=== PATIENT | female | born 1950 | race Caucasian/White ===

== ENCOUNTER 2018-01-15 10:48 | Observation (INO) | payer MEDICARE, SELFPAY ==
[2018-01-15] VITALS (16 sets, daily range): BP systolic 119–185; BP diastolic 76–109; PULSE 62–105; RESP 14–20; TEMP 36.8–36.9; O2SAT 96–100; BMI 29.0; BMI 28.5; BMI 28.6
--- NOTE | 2018-01-15 10:56 | NURSING ---
NO OLD EKGS
--- NOTE | 2018-01-15 11:05 | EKG12_ITS ---
Test Reason : CP Blood Pressure : / mmHG Vent. Rate : 071 BPM Atrial Rate : 071 BPM P-R Int : 150 ms QRS Dur : 078 ms QT Int : 388 ms P-R-T Axes : 044 -13 054 degrees QTc Int : 421 ms Normal sinus rhythm Normal ECG Confirmed by FRANKIE CARDOZO, GAMA ([id number]), purchasing expeditor ROSMERY SHAHID ([id number]) on 01/18/2018 1:56:12 PM Referred By: PATTI Confirmed By:GAMA DAVID MD
[2018-01-15 11:12] LABS: Absolute Lymphocyte Count 1.35 X10^3/ul (0.83-4.51); Basophil# 0.02 X10^3/uL; Basophil% 0.2 % (0-1); Eosinophil# 0.05 X10^3/uL; Eosinophils% 0.5 % (0-5); Hematocrit 43.6 % (37-47); Hemoglobin 14.4 g/dl (12.0-15.0); Lymphocyte # 1.35 X10^3/ul (4.0); Lymphocyte % 13.7 % (19-41); Mean Corpuscular Hgb 28.2 pg (27.0-32.0); Mean Corpuscular Volume 85.3 fL (81-99); Mean Platelet Vol. 10.4 fl (6.2-12.0); Monocyte# 0.48 X10^3/uL; Monocyte% 4.9 % (0-10); Neutrophil # 7.96 X10^3/uL (2.7-7.7); Neutrophil % 80.5 % (47-70); Platelet Count 306 K/mm3 (150-450); RBC Distribution Width CV 14.5 % (11.6-14.6); RBC Distribution Width SD 44.9 fl (35.1-43.9); Red Blood Count 5.11 M/mm3 (4.2-5.4); White Blood Count 9.9 K/mm3 (4.4-11.0)
[2018-01-15 11:13] LABS: POSITIVE COUNT NO; POSITIVE DIFFERENTIAL NO; POSITIVE MORPHOLOGY NO
--- NOTE | 2018-01-15 11:14 | NURSING ---
CHEMISTRIES AND COAGS HEMOLIZED. LAB TO REPRTINT LABELS
--- NOTE | 2018-01-15 11:30 | ED.RN ---
PT NAUSEATED. UNABLE TO TAKE PO MEDICATIONJS AT PRESENT. WAITING FOR ZOFRAN
[2018-01-15] MEDS: Ondansetron 4 MG/2 ML Vial IV ×2 (11:32→21:04)
[2018-01-15 11:46] LABS: Prothrombin Time (Protime)PT. 12.9 SECONDS (11.7-14.9)
[2018-01-15 11:53] LABS: Anion Gap 7 (5-15); BUN 12 mg/dL (7-18); BUN/Creat Ratio 12.7 RATIO (10-20); Calcium,Total 9.2 mg/dL (8.5-10.1); Chloride 103 mmol/L (98-107); Creatinine, Serum 0.95 mg/dL (0.55-1.02); EST Glomerular Filtration Rate 62 mL/min (>60); Est Glom Filt Rate - Afr Amer 75 mL/min (>60); Estimated Creatinine Clearance 48.26 ml/min; Glucose 101 mg/dL (74-106); Potassium 4.1 mmol/L (3.5-5.1); Sodium Level 139 mmol/L (136-145)
[2018-01-15] MEDS: Aspirin 81 MG TAB.CHEW 324 MG PO (11:54)
--- NOTE | 2018-01-15 11:54 | EKG12_ITS ---
Test Reason : REPEAT Blood Pressure : / mmHG Vent. Rate : 061 BPM Atrial Rate : 061 BPM P-R Int : 158 ms QRS Dur : 074 ms QT Int : 436 ms P-R-T Axes : 032 -06 054 degrees QTc Int : 438 ms Normal sinus rhythm Normal ECG Confirmed by FRANKIE CARDOZO, GAMA ([id number]), proposal editor ROSMERY SHAHID ([id number]) on 01/18/2018 1:56:27 PM Referred By: JUAN PABLO Confirmed By:GAMA DAVID MD
--- NOTE | 2018-01-15 11:54 | RAD_ITS ---
STUDY: X-RAY CHEST REASON FOR EXAM: Female, 67 years old. Chest pain TECHNIQUE: Portable frontal COMPARISON: None. FINDINGS: There is no focal consolidation. Normal size heart. Normal mediastinum and maxime. Normal visualized pulmonary arteries. There is atherosclerotic calcification of the aortic arch with tortuosity. There are diffuse degenerative changes of the visualized thoracic spine. Normal visualized ribs, clavicles, and shoulders. There is no demonstrated abnormality of the visualized soft tissue structures of the upper abdomen. RAD/Chest 1 View (Portable) IMPRESSION: No acute cardiopulmonary process. Electronically Signed: Ariella Underwood MD at 12:33 EDT Tel , Service support ,
--- NOTE | 2018-01-15 12:48 | ED.DCSUM_ITS ---
- ER Visit Summary Date of Service: 01/15/18 Chief Complaint: Chest pain History of Present Illness: The patient is a 67 F who presents with chest pain. It began this morning. She had it when she got up. She describes it as a constant substernal chest tightness which is moderate in severity and nonradiating. She also had nausea with dry heaving and felt short of breath this morning. About a week and a half ago she had one day of an illness with nausea and vomiting but it has resolved. She also fell 2 days ago. This was mechanical. She was trying to pull something and fell. She does have some bruising on her posterior right chest. She has no history of prior similar chest pain. There is a family history of heart disease but not until advanced age. She is not a smoker. Physical Examination: Initial blood pressure 178/109 vitals otherwise normal Moist mucous membranes Heart regular rate and rhythm Lungs are clear Patient has some right posterior chest contusion and ecchymosis with tenderness she does not have anterior chest tenderness Abdomen soft nontender nondistended Extremities nontender with easily palpable symmetric radial pulses Alert Test Results: EKG shows sinus rhythm at a rate of 71. Repeat EKG shows sinus rhythm at a rate of 61. There are no acute ischemic changes. Chest x-ray shows no acute process. CBC BMP troponin and INR all normal. Emergency Department Course and Treatment: Patient was given aspirin. She was given sublingual nitroglycerin. She did have some mild improvement of symptoms with nitroglycerin. However after the third dose she became pale and diaphoretic. Repeat EKG was obtained at this time which did not show acute ischemic changes. She was given morphine with further relief of symptoms. Her LEONELA risk score is 2 and heart score is 3. I do feel she should be admitted for serial EKGs and enzymes and likely stress testing. Treatment Plan: [] Disposition: Admit Impression: Chest pain This note was generated with [employer] dictation software. It may contain incorrect words, spelling, and punctuation that were not noted in review of the chart prior to signing ED Disposition - Plan for ED Patient: Chief Complaint: Chest Pain Referrals: Denzel Greco DO [Primary Care Provider] -
--- NOTE | 2018-01-15 13:14 | PCM.HP.STD ---
Problem List (1) Chest pain Status: Acute (2) Multiple sclerosis Status: Chronic (3) Hypothyroidism Status: Chronic History of Present Illness Date of Admission: 01/15/18 Chief Complaint: Chest pain. The patient is a 67 year old F with past medical history as mentioned above presented to the emergency department because of chest pain. Her symptoms started this morning around 6 AM after she woke up from sleep with retrosternal chest pain, described as chest tightness, 6 out of 10 in severity, not radiating, associated with nausea, was constant, without aggravating or relieving factors. Her pain was continuous until she came to the emergency room and at this time, his pain is down to 4 out of 10 in severity. 2 days ago, she had mechanical fall and she had some bruising on the right posterior chest underneath her right scapula. In the emergency department, her vital signs were stable. Her routine blood work is unremarkable. Troponin is negative. EKG revealed normal sinus rhythm without evidence of acute ischemic changes. Chest x-ray showed no acute findings. Pro time and INR were normal. She is being admitted for chest pain for evaluation. Past Medical History Past Medical History (Chronic Problems): Chronic Problems Multiple sclerosis (Chronic) Hypothyroidism (Chronic) Allergies No Known Allergies Allergy (Verified 01/15/18 10:53) Home Medications: Ambulatory Orders Medication Instructions Recorded Aspirin E.C. 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 Denies: Heaviness, Light Headedness, Orthopnea, Paroxysmal Noc. Dyspnea, Syncope Respiratory: Denies: Cough, Hemoptysis, Pleuritic Pain, Shortness of Breath, Sputum production, Wheezing Gastrointestinal: Reports: Nausea. Denies: Abdominal Pain, Constipation, Diarrhea, Vomiting Genitourinary: Denies: Dysuria, Frequency, Hematuria Musculoskeletal: Denies: Arm Pain, Back Pain, Foot Pain Skin: Denies: Dryness, Rash Neurological: Denies: Balance problems, Double vision, Change in Speech, Slurred speech, Confusion, Headaches, Incoordination, Numbness Psychiatric: Denies: Anxiety, Depression Endocrine: Denies: Change in Body Habitus, Polydipsia VTE Information - Inpt Only VTE Present on Admission: No VTE Mechan Device Prophylaxis: None VTE Pharm Prophylaxis ordered?: Yes Patient Problems: Active and Suspected Problems Chest pain (Acute) - Physical Exam General: Alert, Oriented x3, Cooperative, No apparent distress HEENT: Atraumatic, PERRLA, EOMI Oral: Moist Mucosa, No Gingival or Mucosal Lesions/ Ulcerations Neck: Supple, No JVD, Negative Carotid Bruits, Trachea Midline, Thyroid Normal Size and Texture Lungs: Clear to auscultation, Normal air movement, No rhonchi, No wheeze, No rales Cardiovascular: Regular rate, Regular Rhythm, Normal S1, Normal S2, No murmurs Abdomen: Bowel Sounds Present, Soft, Non Tender, Non-Distended, No Hepato-splenomegaly Extremities: No clubbing, No cyanosis, No edema Skin: No rashes, No breakdown, - - She has bruise on the right posterior chest just under the right scapula. Lymphatic: No Cervical, Supraclavicular, or Inguinal Adenopathy Neurological: Cranial nerves II-XII grossly intact, Motor Exam 5/5 strength throughout Psych/Mental Status: Normal Affect, Appropriate, Alert and oriented to time, place, person, mood and affect Vital Signs Temp Pulse Resp BP Pulse Ox 98.5 F 70 16 150/80 H 100 01/15/18 10:49 01/15/18 12:00 01/15/18 12:00 01/15/18 12:00 01/15/18 12:00 Laboratory Tests 01/15/18 01/15/18 01/15/18 Range/Units 11:25 11:25 10:53 WBC (4.4-11.0) K/mm3 RBC (4.2-5.4) M/mm3 Hgb (12.0-15.0) g/dl Hct (37-47) % MCV (81-99) fL MCH (27.0-32.0) pg MCHC (32-36) g/gl RDW (11.6-14.6) % RDW Differential (35.1-43.9) fl Plt Count (150-450) K/mm3 MPV (6.2-12.0) fl Immature Gran % (Auto) (0.0-0.9) % Neut % (Auto) (47-70) % Lymph % (Auto) (19-41) % [place] % (Auto) (0-10) % Eos % (Auto) (0-5) % Baso % (Auto) (0-1) % Absolute Neuts (auto) (2.0-7.7) X10^3/uL Absolute Lymphs (auto) (0.83-4.51) X10^3/ul Total Counted PT 12.9 INR 1.0 Sodium 139 Cancelled Potassium 4.1 Cancelled Chloride 103 Cancelled Carbon Dioxide 29.0 Cancelled Anion Gap 7 Cancelled BUN 12 Cancelled Creatinine 0.95 Cancelled Estim Creat Clear Calc 48.26 Cancelled Est GFR (MDRD) Af Amer 75 Cancelled Est GFR (MDRD) Non-Af 62 Cancelled BUN/Creatinine Ratio 12.7 Cancelled Glucose 101 Cancelled Calcium 9.2 Cancelled Troponin I < 0.015 Cancelled 01/15/18 01/15/18 Range/Units 10:53 10:53 WBC 9.9 (4.4-11.0) K/mm3 RBC 5.11 (4.2-5.4) M/mm3 Hgb 14.4 (12.0-15.0) g/dl Hct 43.6 (37-47) % MCV 85.3 (81-99) fL MCH 28.2 (27.0-32.0) pg MCHC 33.0 (32-36) g/gl RDW 14.5 (11.6-14.6) % RDW Differential 44.9 H (35.1-43.9) fl Plt Count 306 (150-450) K/mm3 MPV 10.4 (6.2-12.0) fl Immature Gran % (Auto) 0.200 (0.0-0.9) % Neut % (Auto) 80.5 H (47-70) % Lymph % (Auto) 13.7 L (19-41) % [place] % (Auto) 4.9 (0-10) % Eos % (Auto) 0.5 (0-5) % Baso % (Auto) 0.2 (0-1) % Absolute Neuts (auto) 8.0 H (2.0-7.7) X10^3/uL Absolute Lymphs (auto) 1.35 (0.83-4.51) X10^3/ul Total Counted Not Reportable PT Cancelled INR Cancelled Sodium Potassium Chloride Carbon Dioxide Anion Gap BUN Creatinine Estim Creat Clear Calc Est GFR (MDRD) Af Amer Est GFR (MDRD) Non-Af BUN/Creatinine Ratio Glucose Calcium Troponin I Clinical Impression(s) from Imaging Studies Chest X-Ray 01/15/18 11:54 IMPRESSION: No acute cardiopulmonary process. Electronically Signed: Ariella Underwood MD at 12:33 EDT Tel , Service support , Assessment/Plan Active and Suspected Problems Chest pain (Acute) This is a 67 years old female patient presented to the emergency room because of chest pain and she is being admitted for evaluation. #1 chest pain: Her LEONELA score is 2 based on her age and using of aspirin in the last 7 days. No past history of CAD, hypertension, diabetes, hyperlipidemia or smoking. Initial EKG revealed no acute ischemic changes. Troponin is negative. Chest x-ray without acute findings. Plan: Admit to PCU for observation, cardiac monitoring, serial cardiac enzymes, repeat EKG tomorrow morning, continue aspirin, nuclear stress test tomorrow morning if cardiac enzymes are negative, IV morphine as needed for pain, Tylenol as needed. #2 hypothyroidism: Continue levothyroxine. #3 multiple sclerosis: She is only on tramadol as needed, continue. #4 DVT prophylaxis: Subcu Lovenox. This note was generated with mobicanvasation software. It may contain incorrect words, spelling, and punctuation that were not noted in checking the note before signing. Code Visit OBSV E&M: 00796 Initial observation care L3
--- NOTE | 2018-01-15 13:22 | HP.PCM_ITS ---
Problem List (1) Chest pain Status: Acute (2) Multiple sclerosis Status: Chronic (3) Hypothyroidism Status: Chronic History of Present Illness Date of Admission: 01/15/18 Chief Complaint: Chest pain. The patient is a 67 year old F with past medical history as mentioned above presented to the emergency department because of chest pain. Her symptoms started this morning around 6 AM after she woke up from sleep with retrosternal chest pain, described as chest tightness, 6 out of 10 in severity, not radiating , associated with nausea, was constant, without aggravating or relieving factors. Her pain was continuous until she came to the emergency room and at this time, his pain is down to 4 out of 10 in severity. 2 days ago, she had mechanical fall and she had some bruising on the right posterior chest underneath her right scapula. In the emergency department, her vital signs were stable. Her routine blood work is unremarkable. Troponin is negative. EKG revealed normal sinus rhythm without evidence of acute ischemic changes. Chest x-ray showed no acute findings. Pro time and INR were normal. She is being admitted for chest pain for evaluation. Past Medical History Past Medical History (Chronic Problems): Chronic Problems Multiple sclerosis (Chronic) Hypothyroidism (Chronic) Allergies No Known Allergies Allergy (Verified 01/15/18 10:53) Home Medications: Ambulatory Orders Medication Instructions Recorded Aspirin E.C. 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 Denies: Heaviness, Light Headedness, Orthopnea, Paroxysmal Noc. Dyspnea, Syncope Respiratory: Denies: Cough, Hemoptysis, Pleuritic Pain, Shortness of Breath, Sputum production, Wheezing Gastrointestinal: Reports: Nausea. Denies: Abdominal Pain, Constipation, Diarrhea, Vomiting Genitourinary: Denies: Dysuria, Frequency, Hematuria Musculoskeletal: Denies: Arm Pain, Back Pain, Foot Pain Skin: Denies: Dryness, Rash Neurological: Denies: Balance problems, Double vision, Change in Speech, Slurred speech, Confusion, Headaches, Incoordination, Numbness Psychiatric: Denies: Anxiety, Depression Endocrine: Denies: Change in Body Habitus, Polydipsia VTE Information - Inpt Only VTE Present on Admission: No VTE Mechan Device Prophylaxis: None VTE Pharm Prophylaxis ordered?: Yes Patient Problems: Active and Suspected Problems Chest pain (Acute) - Physical Exam General: Alert, Oriented x3, Cooperative, No apparent distress HEENT: Atraumatic, PERRLA, EOMI Oral: Moist Mucosa, No Gingival or Mucosal Lesions/ Ulcerations Neck: Supple, No JVD, Negative Carotid Bruits, Trachea Midline, Thyroid Normal Size and Texture Lungs: Clear to auscultation, Normal air movement, No rhonchi, No wheeze, No rales Cardiovascular: Regular rate, Regular Rhythm, Normal S1, Normal S2, No murmurs Abdomen: Bowel Sounds Present, Soft, Non Tender, Non-Distended, No Hepato- splenomegaly Extremities: No clubbing, No cyanosis, No edema Skin: No rashes, No breakdown, - - She has bruise on the right posterior chest just under the right scapula. Lymphatic: No Cervical, Supraclavicular, or Inguinal Adenopathy Neurological: Cranial nerves II-XII grossly intact, Motor Exam 5/5 strength throughout Psych/Mental Status: Normal Affect, Appropriate, Alert and oriented to time, place, person, mood and affect Vital Signs Temp Pulse Resp BP Pulse Ox 98.5 F 70 16 150/80 H 100 01/15/18 10:49 01/15/18 12:00 01/15/18 12:00 01/15/18 12:00 01/15/18 12:00 Laboratory Tests 3 01/15/18 01/15/18 01/15/18 Range/Units 11:25 11:25 10:53 WBC (4.4-11.0) K/mm3 RBC (4.2-5.4) M/mm3 Hgb (12.0-15.0) g/dl Hct (37-47) % MCV (81-99) fL MCH (27.0-32.0) pg MCHC (32-36) g/gl RDW (11.6-14.6) % RDW Differential (35.1-43.9) fl Plt Count (150-450) K/mm3 MPV (6.2-12.0) fl Immature Gran % (Auto) (0.0-0.9) % Neut % (Auto) (47-70) % Lymph % (Auto) (19-41) % [place] % (Auto) (0-10) % Eos % (Auto) (0-5) % Baso % (Auto) (0-1) % Absolute Neuts (auto) (2.0-7.7) X10^3/uL Absolute Lymphs (auto) (0.83-4.51) X10^3/ul Total Counted PT 12.9 INR 1.0 Sodium 139 Cancelled Potassium 4.1 Cancelled Chloride 103 Cancelled Carbon Dioxide 29.0 Cancelled Anion Gap 7 Cancelled BUN 12 Cancelled Creatinine 0.95 Cancelled Estim Creat Clear Calc 48.26 Cancelled Est GFR (MDRD) Af Amer 75 Cancelled Est GFR (MDRD) Non-Af 62 Cancelled BUN/Creatinine Ratio 12.7 Cancelled Glucose 101 Cancelled Calcium 9.2 Cancelled Troponin I < 0.015 Cancelled 3 01/15/18 01/15/18 Range/Units 10:53 10:53 WBC 9.9 (4.4-11.0) K/mm3 RBC 5.11 (4.2-5.4) M/mm3 Hgb 14.4 (12.0-15.0) g/dl Hct 43.6 (37-47) % MCV 85.3 (81-99) fL MCH 28.2 (27.0-32.0) pg MCHC 33.0 (32-36) g/gl RDW 14.5 (11.6-14.6) % RDW Differential 44.9 H (35.1-43.9) fl Plt Count 306 (150-450) K/mm3 MPV 10.4 (6.2-12.0) fl Immature Gran % (Auto) 0.200 (0.0-0.9) % Neut % (Auto) 80.5 H (47-70) % Lymph % (Auto) 13.7 L (19-41) % [place] % (Auto) 4.9 (0-10) % Eos % (Auto) 0.5 (0-5) % Baso % (Auto) 0.2 (0-1) % Absolute Neuts (auto) 8.0 H (2.0-7.7) X10^3/uL Absolute Lymphs (auto) 1.35 (0.83-4.51) X10^3/ul Total Counted Not Reportable PT Cancelled INR Cancelled Sodium Potassium Chloride Carbon Dioxide Anion Gap BUN Creatinine Estim Creat Clear Calc Est GFR (MDRD) Af Amer Est GFR (MDRD) Non-Af BUN/Creatinine Ratio Glucose Calcium Troponin I Clinical Impression(s) from Imaging Studies Chest X-Ray 01/15/18 11:54 IMPRESSION: No acute cardiopulmonary process. Electronically Signed: Ariella Underwood MD at 12:33 EDT Tel , Service support , Assessment/Plan Active and Suspected Problems Chest pain (Acute) This is a 67 years old female patient presented to the emergency room because of chest pain and she is being admitted for evaluation. #1 chest pain: Her LEONELA score is 2 based on her age and using of aspirin in the last 7 days. No past history of CAD, hypertension, diabetes, hyperlipidemia or smoking. Initial EKG revealed no acute ischemic changes. Troponin is negative. Chest x-ray without acute findings. Plan: Admit to PCU for observation, cardiac monitoring, serial cardiac enzymes, repeat EKG tomorrow morning, continue aspirin, nuclear stress test tomorrow morning if cardiac enzymes are negative, IV morphine as needed for pain, Tylenol as needed. #2 hypothyroidism: Continue levothyroxine. #3 multiple sclerosis: She is only on tramadol as needed, continue. #4 DVT prophylaxis: Subcu Lovenox. This note was generated with Dragon dictation software. It may contain incorrect words, spelling, and punctuation that were not noted in checking the note before signing. Code Visit OBSV E&M: 48906 Initial observation care L3
[2018-01-15] MEDS: proMETHazine 25 MG/ML Syringe 12.5 MG IV (13:37)
[2018-01-15] MEDS: traMADol 50 MG Tablet PO ×2 (14:22→21:00)
[2018-01-15] MEDS: 0.9% Normal Saline 1,000 ML 75 ML IV (14:47)
[2018-01-15] MEDS: 0.9% NaCl Peripheral Flush Adult/Peds IV (14:47)
[2018-01-15] MEDS: Mag Hydrox/Al Hydrox/Simeth 30 ML UDC 15 ML PO (18:07)
[2018-01-15] MEDS: Pantoprazole Sodium 40 MG Tablet PO (21:00)
[2018-01-15] MEDS: Acetaminophen 325 MG Tablet 650 MG PO (21:00)
[2018-01-16] VITALS (7 sets, daily range): BP systolic 150–178; BP diastolic 89–94; PULSE 71–92; RESP 16; TEMP 36.7–36.9; O2SAT 98–100
[2018-01-16] MEDS: Ondansetron 4 MG/2 ML Vial IV (04:08)
[2018-01-16] MEDS: 0.9% NaCl Peripheral Flush Adult/Peds IV (04:08)
[2018-01-16 05:48] LABS: Anion Gap 10 (5-15); BUN 8 mg/dL (7-18); BUN/Creat Ratio 10.5 RATIO (10-20); Calcium,Total 8.6 mg/dL (8.5-10.1); Chloride 103 mmol/L (98-107); Creatinine, Serum 0.76 mg/dL (0.55-1.02); EST Glomerular Filtration Rate 80 mL/min (>60); Est Glom Filt Rate - Afr Amer 97 mL/min (>60); Estimated Creatinine Clearance 45.85 ml/min; Glucose 106 mg/dL (74-106); Potassium 3.8 mmol/L (3.5-5.1); Sodium Level 137 mmol/L (136-145)
--- NOTE | 2018-01-16 05:55 | EKG12_ITS ---
Test Reason : MORNING EKG Blood Pressure : / mmHG Vent. Rate : 075 BPM Atrial Rate : 075 BPM P-R Int : 152 ms QRS Dur : 076 ms QT Int : 422 ms P-R-T Axes : 035 -12 044 degrees QTc Int : 471 ms Normal sinus rhythm Normal ECG When compared with ECG of 15-JAN-2018 11:55, MANUAL COMPARISON REQUIRED, DATA IS UNCONFIRMED Confirmed by FRANKIE CARDOZO, GAMA ([id number]), editor managing newspaper ROSMERY SHAHID ([id number]) on 01/18/2018 3:08:13 PM Referred By: NAIDA Confirmed By:GAMA DAVID MD
[2018-01-16] MEDS: Levothyroxine 50 MCG Tablet PO (06:01)
[2018-01-16] MEDS: Acetaminophen 325 MG Tablet 650 MG PO (06:01)
[2018-01-16 06:04] LABS: Absolute Lymphocyte Count 1.57 X10^3/ul (0.83-4.51); Absolute Neutrophil Count 10.2 X10^3/uL (2.0-7.7); Basophil# 0.01 X10^3/uL; Basophil% 0.1 % (0-1); Eosinophil# 0.03 X10^3/uL; Eosinophils% 0.2 % (0-5); Hematocrit 44.1 % (37-47); Hemoglobin 14.3 g/dl (12.0-15.0); Lymphocyte # 1.57 X10^3/ul (4.0); Lymphocyte % 12.4 % (19-41); Mean Corp Hgb Conc 32.4 g/gl (32-36); Mean Corpuscular Hgb 27.7 pg (27.0-32.0); Mean Corpuscular Volume 85.5 fL (81-99); Mean Platelet Vol. 9.4 fl (6.2-12.0); Monocyte% 7.1 % (0-10); Neutrophil # 10.16 X10^3/uL (2.7-7.7); Platelet Count 292 K/mm3 (150-450); RBC Distribution Width CV 14.3 % (11.6-14.6); RBC Distribution Width SD 44.8 fl (35.1-43.9); Red Blood Count 5.16 M/mm3 (4.2-5.4); White Blood Count 12.7 K/mm3 (4.4-11.0)
[2018-01-16 06:14] LABS: International Normalized Ratio 1.1; Partial Thromboplast Time 26.5 Seconds (24.1-36.2); Prothrombin Time (Protime)PT. 13.9 SECONDS (11.7-14.9)
[2018-01-16 06:19] LABS: POSITIVE COUNT NO; POSITIVE DIFFERENTIAL NO; POSITIVE MORPHOLOGY NO
[2018-01-16] MEDS: Folic Acid 1 MG Tablet PO (08:58)
[2018-01-16] MEDS: Pantoprazole Sodium 40 MG Tablet PO (08:58)
--- NOTE | 2018-01-16 09:03 | STRESSREP ---
Stress Test Report Exercise myocardial perfusion stress test. 67-year-old lady with a history of chest pain. Stress protocol: Resting EKG demonstrates normal sinus rhythm with rate of 71 bpm normal intervals and noted resting blood pressure is 154/102 mmHg. 0.4 mg regadenoson was infused per usual protocol followed by rapid intravenous saline flush injection continuous EKG monitoring was performed. The maximum heart rate attained was 118 bpm which was 78% of maximum predicted heart rate the maximum workload attained was 1 metabolic equivalent. The resting blood pressure was 170 102 with a final blood pressure 160/100 mmHg. No clinical angina was noted. Myocardial perfusion protocol: 11.3 mCi of technetium 99m sestamibi was injected at rest. 0.4 mg regadenoson was infused per usual protocol. Peak infusion 32.0 mCi of technetium 99m sestamibi was injected stress images were obtained stress and rest images were reconstructed and compared in the short axis vertical long and horizontal long axis. Gated images were also obtained. Perfusion SPECT analysis: Review of the stress images demonstrate normal uptake of tracer noted in all areas of the myocardium. The resting images similarly demonstrate normal uptake of tracer noted in all areas of the myocardium. No reversibility is noted suggest ischemia and no previous infarct is noted. Gated SPECT analysis: The gated ejection fraction is noted to be 71%. Conclusion: Normal pharmacologic myocardial perfusion stress test. Preserved ejection fraction.
[2018-01-16] MEDS: Enoxaparin 40 MG/0.4 ML Syringe SC (09:31)
[2018-01-16] MEDS: Aspirin E.C. 81 MG Tablet PO (09:31)
--- NOTE | 2018-01-16 09:44 | DCINST_ITS ---
- Discharge Diagnoses Current Active Problems: Current Active and Chronic Problems Chest pain (Acute) Multiple sclerosis (Chronic) Hypothyroidism (Chronic) You will use the following diet at home:: Cardiac Your food should be the consistency of: Regular Discharge Activity: Return to Normal Activity Weight Bearing Status: Weight bearing as tolerated Call your doctor if you observe: Fever of 101 or Higher, Shortness of breath, Dizziness, Fainting spells, Swelling in the ankles, Chest pain, Increased palpitations (irregular heartbeat), Uncontrolled pain Instructions: Angiotensin Receptor Blockers (ARBs), Taking Your Blood Pressure , Taking Amlodipine, Low-Salt Choices, Controlling High Blood Pressure Allergies/Adverse Reactions: Allergies No Known Allergies Allergy (Verified 01/15/18 10:53) Medications to take at Discharge Aspirin E.C. [Ecotrin] 81 mg PO DAILY@0800 01/15/18 Ergocalciferol [Vitamin D] 50,000 unit PO Q7D 01/15/18 Folic Acid 1 mg PO DAILY@0800 01/15/18 Levothyroxine [Synthroid] 50 mcg PO DAILY 01/15/18 Omeprazole 40 mg PO DAILY 01/15/18 traMADol [Ultram] 50 mg PO Q8H PRN PRN 01/15/18 Amlodipine [Norvasc] 5 mg PO DAILY #30 tab 01/16/18 The following prescriptions were given: Amlodipine [Norvasc] 5 mg PO DAILY #30 tab Primary Care Physician: Denzel Greco DO [Primary Care Provider] - Please follow up with your Primary Care Physician in: 1 week.
[2018-01-16] MEDS: amLODIPine 5 MG Tablet PO (10:27)
--- NOTE | 2018-01-16 17:54 | DS.PCM_ITS ---
Discharge Date and Diagnosis Date of Admission: 01/15/18 Date of Discharge: 01/16/18 - Primary Discharge Diagnosis #1 chest pain, ACS ruled out. #2 newly diagnosed hypertension. - Secondary Discharge Diagnosis Chronic Problems Multiple sclerosis (Chronic) Hypothyroidism (Chronic) Hospital Course and Treatment Imaging Results: Clinical Impression(s) from Imaging Studies Chest X-Ray 01/15/18 11:54 IMPRESSION: No acute cardiopulmonary process. Electronically Signed: Ariella Underwood MD at 12:33 EDT Tel , Service support , Operations: None Procedures: EKG, Stress test Summary of Care Provided: Patient seen and examined on the day of discharge and appeared to be stable to be discharged home. She denies any more chest pain. Her blood pressure has been elevated this hospital stay, went up to 170 systolic. - Physical Exam General: Alert, Oriented x3, Cooperative, No apparent distress. HEENT: Atraumatic, PERRLA, EOMI. Neck: Supple, No JVD, Negative Carotid Bruits, Trachea Midline, Thyroid Normal. Lungs: Clear to auscultation, Normal air movement, No rhonchi, No wheeze, No rales. Cardiovascular: Regular rate, Regular Rhythm, Normal S1, Normal S2, PMI Normal. Abdomen: Bowel Sounds Present, Soft, Non Tender, Non-Distended, No Hepato- splenomegaly. Extremities: No clubbing, No cyanosis, No edema Skin: No rashes, No breakdown Neurological: Neuro grossly intact Hospital course: This is a 67 years old female patient admitted for chest pain for evaluation. Her LEONELA score was 2 based on age and using aspirin at home. Her initial and repeat EKG revealed no evidence of acute ischemic changes. Chest x-ray showed no acute findings. Troponin was negative ?3. She underwent nuclear stress test that reported as negative without evidence of stress-induced myocardial ischemia. ACS ruled out. Routine blood work was unremarkable. During this hospital stay, her blood pressure was elevated constantly. It was in the range of 160-170 systolic. She was started on Norvasc for hypertension. Patient discharged home in a stable medical condition, discharged on Norvasc for newly diagnosed hypertension, continued on her chronic home medication without any changes, recommended to check blood pressure at least twice daily and follow-up with PCP in 1 week. Discharge Activity: Return to Normal Activity Weight Bearing Status: Weight bearing as tolerated Call your doctor if you observe: Fever of 101 or Higher, Shortness of breath, Dizziness, Fainting spells, Swelling in the ankles, Chest pain, Increased palpitations (irregular heartbeat), Uncontrolled pain Home Medications: Medications to take at Discharge Aspirin E.C. [Ecotrin] 81 mg PO DAILY@0800 01/15/18 Ergocalciferol [Vitamin D] 50,000 unit PO Q7D 01/15/18 Folic Acid 1 mg PO DAILY@0800 01/15/18 Levothyroxine [Synthroid] 50 mcg PO DAILY 01/15/18 Omeprazole 40 mg PO DAILY 01/15/18 traMADol [Ultram] 50 mg PO Q8H PRN PRN 01/15/18 Amlodipine [Norvasc] 5 mg PO DAILY #30 tab 01/16/18 Following Prescrptions Were Given to Patient: Amlodipine [Norvasc] 5 mg PO DAILY #30 tab Primary Care Physician: Denzel Greco DO [Primary Care Provider] - Please follow up with your Primary Care Physician in: 1 week. Please Follow Up With: ELLY GRECO Patient Instructions: Angiotensin Receptor Blockers (ARBs), Controlling High Blood Pressure, Low-Salt Choices, Taking Amlodipine, Taking Your Blood Pressure Disposition: Home Minutes spent on discharge:: 24 Patient Condition:: Stable Medical Necessity - Tobacco Use Smoking Status: Never smoker Tobacco Use: Non-smoker Meaningful Use Info Meaningful Use Diagnoses (Choose all that apply): None applicable Code Visit OBSV E&M: 61299 Observation care discharge
--- NOTE | 2018-03-26 11:33 | NURSING ---
Pepper notified patient may transfer to PCU.
== END 2018-01-16 09:44 | disposition home or self-care (01) ==
LOC: ED 11:39 → PCU 13:00
PROVIDERS: Admitting Provider Hospitalist; Emergency Provider Emergency Medicine; Family Provider Preventive Medicine Occupational Medicine; PCP Preventive Medicine Occupational Medicine; Visit Provider Hospitalist
DX: R07.89 Other chest pain (principal); R06.02 Shortness of breath; I10 Essential (primary) hypertension; G35 Multiple sclerosis; E03.9 Hypothyroidism, unspecified; Z79.899 Other long term (current) drug therapy; Z79.82 Long term (current) use of aspirin; S20.211A Contusion of right front wall of thorax, initial encounter; W19.XXXA Unspecified fall, initial encounter; Y93.9 Activity, unspecified; Y92.9 Unspecified place or not applicable
CPT/HCPCS: 36415; 71045; 78452; 80048; 84484; 85025; 85610; 85730; 93005; 93017; 96361; 96372; 96374; 96375; 96376; 99218; 99285; A9500; J7030; A4216; G0378; J2405; J2785

== ENCOUNTER 2018-03-26 07:09 | Observation (INO) | payer MEDICARE, SELFPAY ==
[2018-03-26] VITALS (17 sets, daily range): BP systolic 161–187; BP diastolic 80–105; PULSE 50–85; RESP 14–20; TEMP 36.6–37.3; O2SAT 94–100; BMI 30.5; BMI 28.0
--- NOTE | 2018-03-26 07:12 | RAD_ITS ---
STUDY: X-RAY CHEST REASON FOR EXAM: Female, 67 years old. Chest pain starting this morning TECHNIQUE: Single AP portable view of the chest. COMPARISON: January 15, 2018 FINDINGS: There is hyperinflation of the lungs consistent with chronic obstructive lung disease (COPD). Lungs are clear. There is no demonstrated pleural abnormality. Normal size heart. Normal mediastinum and maxime. Normal visualized pulmonary arteries. Normal visualized aortic arch and descending thoracic aorta. Normal visualized thoracic spine. Normal visualized ribs, clavicles, and shoulders. There is no demonstrated abnormality of the visualized soft tissue structures of the upper abdomen. RAD/Chest 1 View (Portable) IMPRESSION: Normal x-ray examination of the chest. Electronically Signed: Chad Hammond DO at 7:37 EDT Tel , Service support ,
--- NOTE | 2018-03-26 07:12 | EKG12_ITS ---
Test Reason : CP ADMISSION Blood Pressure : / mmHG Vent. Rate : 058 BPM Atrial Rate : 058 BPM P-R Int : 160 ms QRS Dur : 078 ms QT Int : 454 ms P-R-T Axes : 043 -05 042 degrees QTc Int : 445 ms Sinus bradycardia Otherwise normal ECG Confirmed by ILA CARDOZO, JACKELYN ([id number]), photographic editor ROSMERY SHAHID ([id number]) on 03/29/2018 1:52:01 PM Referred By: Confirmed By:JACKELYN THORPE MD
[2018-03-26 07:38] LABS: Absolute Lymphocyte Count 1.05 X10^3/ul (0.83-4.51); Absolute Neutrophil Count 8.5 X10^3/uL (2.0-7.7); Basophil# 0.02 X10^3/uL; Basophil% 0.2 % (0-1); Eosinophil# 0.03 X10^3/uL; Eosinophils% 0.3 % (0-5); Hematocrit 42.3 % (37-47); Hemoglobin 14.1 g/dl (12.0-15.0); Lymphocyte # 1.05 X10^3/ul (4.0); Lymphocyte % 10.6 % (19-41); Mean Corp Hgb Conc 33.3 g/gl (32-36); Mean Corpuscular Hgb 28.1 pg (27.0-32.0); Mean Corpuscular Volume 84.4 fL (81-99); Mean Platelet Vol. 10.4 fl (6.2-12.0); Monocyte# 0.29 X10^3/uL; Monocyte% 2.9 % (0-10); Neutrophil # 8.52 X10^3/uL (2.7-7.7); Neutrophil % 85.9 % (47-70); Platelet Count 308 K/mm3 (150-450); RBC Distribution Width CV 14.3 % (11.6-14.6); RBC Distribution Width SD 43.6 fl (35.1-43.9); Red Blood Count 5.01 M/mm3 (4.2-5.4); White Blood Count 9.9 K/mm3 (4.4-11.0)
[2018-03-26 07:39] LABS: POSITIVE COUNT NO; POSITIVE DIFFERENTIAL NO; POSITIVE MORPHOLOGY NO
[2018-03-26 07:55] LABS: Anion Gap 10 (5-15); BUN 14 mg/dL (7-18); BUN/Creat Ratio 13.7 RATIO (10-20); Calcium,Total 8.9 mg/dL (8.5-10.1); Chloride 103 mmol/L (98-107); Creatinine, Serum 1.02 mg/dL (0.55-1.02); EST Glomerular Filtration Rate 57 mL/min (>60); Est Glom Filt Rate - Afr Amer 69 mL/min (>60); Estimated Creatinine Clearance 44.95 ml/min; Glucose 126 mg/dL (74-106); Potassium 4.3 mmol/L (3.5-5.1); Sodium Level 138 mmol/L (136-145)
[2018-03-26] MEDS: Ondansetron 4 MG/2 ML Vial IV ×2 (07:57→17:05)
--- NOTE | 2018-03-26 08:01 | ED.VISSUMM ---
- ER Visit Summary Date of Service: 03/26/18 Chief Complaint: Chest pain History of Present Illness: The patient is a 67 F with chest pain that started around midnight today. The patient was awake when it started. It feels like a tightness in her substernal region. It does not radiate. Nothing seems to bring it on or make it worse. The patient did report that she was fine during the previous day. She was picking beans. She had a lot of physical activity and seemed to do well during the activity, but afterwards she was very tired and she fell asleep around 5 PM. Patient has some associated nausea but no other symptoms. She denies any history of heart disease, diabetes, or hyperlipidemia. Non-smoker. She was treated in the past for hypertension. Patient was admitted about a month ago for a chest pain workup. She had a negative stress test. She has never had a cath. 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 Patient is not currently on blood thinners. Physical Examination: Blood pressure 173/101. Otherwise vitals unremarkable. Afebrile. Patient appears in no acute distress. Skin is normal with out diaphoresis or pallor. Heart regular rate and rhythm. Lungs clear. Abdomen soft. Trace lower extremity edema, symmetric. Calves nontender. Test Results: EKG shows sinus rhythm at a rate of 75. No sign of acute ischemia or infarction pattern. Chest x-ray was normal. Labs including CBC, BMP, troponin, and d-dimer pending. Emergency Department Course and Treatment: Patient was treated with aspirin and Zofran while awaiting results. She was monitored. CBC and BMP normal. Troponin normal. D-dimer negative. Patient's recent unremarkable stress test, normal EKG, normal troponin make ACS very unlikely. Her clinical picture is not consistent with ACS. She was very active yesterday and had no symptoms. Her symptoms started when she rested overnight. Her main symptoms seems to be the chest tightness and nausea. This was somewhat improved with Zofran. Negative d-dimer makes PE and dissection very unlikely. She is hypertensive, but overall I have low suspicion for aortic pathology. I also have low suspicion for PE given that her prior embolism was provoked when she had an MS exacerbation. Abdomen remains soft. She is not have vomiting. I do not suspect obstruction or other emergent GI pathology. Her blood pressure remained high. She was treated with a dose of labetalol and her pressures improved to the 170 systolic. Her repeat evaluation was unchanged. Her symptoms had improved and her pain was 2 out of 10. Patient would like to try outpatient follow-up with her family doctor. I advised her to take Zofran as needed at home. She also has a prescription for amlodipine. She has been hypertensive here. Most of her blood pressures in the hospital during her recent stay were elevated. I believe that she needs to be treated for hypertension and she will discuss with her doctor. I advised her that if she does have new or worsening symptoms, she should return at any time for reevaluation or further care. Prior to discharge, the patient was feeling worse. She did not feel comfortable going home. I spoke with the hospitalist who will admit. Treatment Plan: As above Disposition: Admission Impression: 1. Chest pain unclear etiology 2. Nausea 3. Hypertension This note was generated with [employer] dictation software. It may contain incorrect words, spelling, and punctuation that were not noted in review of the chart prior to signing ED Disposition - Plan for ED Patient: Disposition: Acute Care Hospital [facility] Chief Complaint: Chest Pain
[2018-03-26] MEDS: Aspirin 81 MG TAB.CHEW 324 MG PO (08:05)
[2018-03-26 08:13] LABS: D-Dimer Quantitative (DVT/PE) 0.46 FEU/ug/m (0.27-0.49)
--- NOTE | 2018-03-26 10:44 | ED.DEP ---
ED Disposition - Plan for ED Patient: Chief Complaint: Chest Pain Instructions: ED Chest Pain Atypical Unkn Cause Referrals: Denzel Greco DO [Primary Care Provider] -
--- NOTE | 2018-03-26 11:02 | ED.RN ---
pt reports chest pressure, 11/10. dr landin aware. hospitalist paged for admission and new med orders recieved.
[2018-03-26] MEDS: Morphine 4 MG/ML Syringe IV (11:07)
--- NOTE | 2018-03-26 11:25 | HP.PCM_ITS ---
Problem List (1) Chest pain Status: Acute (2) Multiple sclerosis Status: Chronic (3) Hypothyroidism Status: Chronic History of Present Illness Date of Admission: 03/26/18 Chief Complaint: Chest pain- 1 day The patient is a 67 year old F with past medical history of multiple sclerosis, hypothyroidism who comes in with complaints of chest pain that happened last night, persistent until this morning. Chest pain was described as substernal, pressure-like, associated with feeling of unwell. Denied any diaphoresis or dizziness or palpitations with it. Patient was recently admitted and discharged with similar chest pain for we stress test was done and was negative. Vitals in the ED showed temperature 98.7 F, heart rate of 81, blood pressure is elevated at 166/100, respiratory rate 18, SPO2 is 98% on room air EEG was unremarkable, initial troponin was negative. Admitting blood work is also unremarkable. Chest history on admission is negative for any acute cardiopulmonary finding. Past Medical History Past Medical History (Chronic Problems): Chronic Problems Multiple sclerosis (Chronic) Hypothyroidism (Chronic) Allergies No Known Allergies Allergy (Verified 01/15/18 10:53) Home Medications: Ambulatory Orders Medication Instructions Recorded Aspirin E.C. 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 Denies: Anorexia, Chills, Fever, Night Sweats, Malaise, Weight Change Eyes: Denies: Blurred vision, Cataracts, Conjunctivae Inflammation, Pain, Redness, Vision Change HEENT: Denies: Difficulty Hearing, Difficulty Swallowing, Head Aches, Hearing Changes, Sinus Congestion, Sinus Drainage Cardiovascular: Reports: Chest Pain. Denies: Heaviness, Light Headedness, Orthopnea, Palpitations, Paroxysmal Noc. Dyspnea Respiratory: Reports: Shortness of breath upon exertion. Denies: Cough, Hemoptysis, Shortness of breath at rest, Sputum production Gastrointestinal: Denies: Abdominal Pain, Constipation, Nausea, Vomiting Genitourinary: Denies: Dysuria, Frequency Musculoskeletal: Denies: Joint Pain, Joint stiffness, Joint swelling, Joint Tenderness Skin: Denies: Rash, Wounds Neurological: Denies: Numbness, Tingling, Focal weakness Psychiatric: Denies: Anxiety, Depression, Homicidal Ideations, Suicidal Ideations Hematologic/ Lymphatic: Denies: Easy Bruising, Easy Bleeding VTE Information - Inpt Only VTE Present on Admission: No VTE Pharm Prophylaxis ordered?: Yes - Physical Exam General: Alert, Oriented x3, Cooperative, No apparent distress HEENT: Atraumatic, PERRLA, EOMI, Normocephalic Oral: Moist Mucosa Neck: Supple, No JVD, Negative Carotid Bruits Lungs: Clear to auscultation, Normal air movement, - Cardiovascular: Regular rate, Regular Rhythm - No chest wall compression tenderness, Normal S1, Normal S2, No murmurs Abdomen: Bowel Sounds Present, Soft, Non Tender, Non-Distended, No Hepato- splenomegaly Extremities: No edema Skin: No rashes, No breakdown Musculoskeletal: No Tenderness to Palpation of Joints or Extremities Lymphatic: No Cervical, Supraclavicular, or Inguinal Adenopathy Neurological: Cranial nerves II-XII grossly intact, Neuro grossly intact Psych/Mental Status: Normal Affect, Appropriate Vital Signs Temp Pulse Resp BP Pulse Ox 98.7 F 60 16 178/80 H 98 03/26/18 07:11 03/26/18 11:02 03/26/18 11:02 03/26/18 11:02 03/26/18 11:02 Oxygen Delivery Method Room Air Weight: 80.739 kg Body Mass Index (BMI) 30.5 Laboratory Tests Past 24 Hrs 03/26/18 03/26/18 03/26/18 07:25 07:25 07:25 WBC 9.9 RBC 5.01 Hgb 14.1 Hct 42.3 MCV 84.4 MCH 28.1 MCHC 33.3 RDW 14.3 RDW Differential 43.6 Plt Count 308 MPV 10.4 Immature Gran % (Auto) 0.100 Neut % (Auto) 85.9 H Lymph % (Auto) 10.6 L [place] % (Auto) 2.9 Eos % (Auto) 0.3 Baso % (Auto) 0.2 Absolute Neuts (auto) 8.5 H Absolute Lymphs (auto) 1.05 Total Counted Not Reportable D-Dimer Quant (PE/DVT) 0.46 Sodium 138 Potassium 4.3 Chloride 103 Carbon Dioxide 25.0 Anion Gap 10 BUN 14 Creatinine 1.02 Estim Creat Clear Calc 44.95 Est GFR (MDRD) Af Amer 69 Est GFR (MDRD) Non-Af 57 L BUN/Creatinine Ratio 13.7 Glucose 126 H Calcium 8.9 Troponin I < 0.015 Assessment/Plan All Active Problems Chest pain (Acute) 67 year old F with past medical history of multiple sclerosis, hypothyroidism who comes in with complaints of chest pain that happened last night, persistent until this morning. Chest pain was described as substernal, pressure-like, associated with feeling of unwell 1. Chest pain, atypical, recent stress test has been negative, patient comes in with persistent chest pain, stable vitals, normal EKG Plan: To PCU, monitor on telemetry, cardiology consult for possible cardiac card to further elucidate chest pain, trend troponins, aspirin, beta-blockers, check lipid profile in the morning 2. Hypertension, uncontrolled, not on home medications, will continue patient on metoprolol 12.5 mg p.o. daily, hydralazine as needed 3. Hypothyroidism, on replacement 4. DVT PPx- Lovenox SC Code Visit OBSV E&M: 71201 Initial observation care L3
--- NOTE | 2018-03-26 11:36 | NURSING ---
Pepper notified patient may transfer to PCU.
--- NOTE | 2018-03-26 11:41 | EKG12_ITS ---
Test Reason : CP Blood Pressure : / mmHG Vent. Rate : 075 BPM Atrial Rate : 075 BPM P-R Int : 156 ms QRS Dur : 074 ms QT Int : 412 ms P-R-T Axes : 043 -14 040 degrees QTc Int : 460 ms Normal sinus rhythm Normal ECG Confirmed by ILA CARDOZO, JACKELYN ([id number]), photo editor ROSMERY SHAHID ([id number]) on 03/29/2018 1:17:41 PM Referred By: RENEE Confirmed By:JACKELYN THORPE MD
[2018-03-26] MEDS: Pantoprazole Sodium 40 MG Tablet PO (13:28)
[2018-03-26] MEDS: Metoprolol Tartrate 25 MG Tablet 12.5 MG PO ×2 (17:05→22:19)
[2018-03-26] MEDS: traMADol 50 MG Tablet PO (17:50)
--- NOTE | 2018-03-26 18:21 | PCM.CONS.C ---
Problem List (1) Chest pain Status: Acute (2) Hypothyroidism Status: Chronic (3) Multiple sclerosis Status: Chronic (4) GERD (gastroesophageal reflux disease) Status: Chronic Reason for Consult Date of Consultation: 03/26/18 History of Present Illness: The patient is a 67 year old white female who was referred for evaluation of recurrent chest discomfort, despite a negative pharmacologic stress nuclear imaging study, for consideration for diagnostic cardiac catheterization. The patient has been having on and off chest discomfort which she describes as an uncomfortable feeling in her chest was associated symptoms such as nausea but without obvious emesis, dyspnea, palpitations, or near syncope or syncope. She states she does have a history of GERD but notes these symptoms are different from her symptoms related to her GERD which is pending further evaluation by gastroenterology in the future. Based upon her symptoms she underwent a pharmacologic stress nuclear imaging study in January of this year. Based upon the report that was considered a normal pharmacologic myocardial perfusion stress test with an LVEF of 71%. However she has presented back with recurrent symptoms and is now been referred to, as her symptoms are different from her gastrointestinal symptoms with no other obvious etiology, for consideration for further cardiac evaluation with diagnostic cardiac catheterization. She denies any obvious orthopnea or PND. She states she has waxing and waning bilateral peripheral pitting edema thought secondary to a history of multiple sclerosis. There has been no near syncope or syncope. Since being in the hospital her troponin I levels have been negative. Her ECG has demonstrated sinus rhythm/sinus bradycardia with no acute ECG changes. A d-dimer level was performed which was negative. A chest x-ray was performed and was reported as unremarkable. [] Past Medical History Allergies/Adverse Reactions: Allergies No Known Allergies Allergy (Verified 01/15/18 10:53) Home Medications: Ambulatory Orders Medication Instructions Recorded Aspirin E.C. 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 Denies: Shortness of Breath, Orthopnea, PND, Palpitations, Lightheadedness, Dizziness, Near Syncope, Syncope Respiratory: Denies: Cough, Sputum Production, Hemoptysis Gastrointestinal: Reports: Nausea. Denies: Hematemesis, Hematochezia, Melena Genitourinary: Denies: Dysuria, Hematuria Skin: Denies: Rash Subjectve: 87-year-old white female who appears to be resting comfortably at the moment in no acute distress. Objective: Vital Signs Temp Pulse Resp BP Pulse Ox 99.1 F 66 16 171/90 H 100 03/26/18 16:21 03/26/18 17:05 03/26/18 16:21 03/26/18 16:21 03/26/18 16:21 Oxygen Delivery Method Room Air Weight: 163 lb 5.8 oz Body Mass Index (BMI) 28.0 Intake and Output for Last 24 Hours 03/24/18 03/25/18 03/26/18 23:59 23:59 23:59 Intake Total 200 / 200 Balance 200 / 200 General: Awake, Alert, Oriented x 3, Cooperative, No Acute Distress HEENT: Atraumatic, Normocephalic, PERRL, EOMI, Sclera Non Icteric Neck: Supple, Good ROM, No JVD Lungs: Clear to auscultation Cardiovascular: Regular Rhythm, Normal S1, Normal S2 Vascular: No Carotid Bruits Abdomen: Bowel Sounds Present, Soft, Non Tender Extremities: No Cyanosis, No Clubbing, No edema Psych/Mental Status: Appropriate, Normal Affect 03/26/18 12:05: Troponin I < 0.015 03/26/18 14:35: Troponin I < 0.015 Rhythm: Sinus rhythm EKG: Sinus rhythm; no acute ECG changes Stress Test: As noted above CXR: As noted above Assessment/Plan 1. Chest pain The patient presents with recurrent chest pain. She states this is different from her gastrointestinal related symptoms. Thus far her noninvasive evaluation has been negative. She continues to be monitored at this time. She has been referred for further cardiovascular evaluation with diagnostic cardiac catheterization. This may not be unreasonable noting the difference in her symptoms and no other obvious etiology at this time noting there may be a concern of a falsely negative stress nuclear imaging study. Thus at the present time she will continue to be monitored. She should receive medicine as deemed appropriate such as aspirin, nitrates, beta-blockers, afterload reducing agents, lipid-lowering agents, anticoagulants, etc. She can be considered for further evaluation of her coronary anatomy with diagnostic cardiac catheterization. The procedure and risks were discussed with her. She states she will consider this option, discussed with her family, and notify the medical staff of her decision-making process. 2. Hypothyroidism She will continue medical management as deemed appropriate. 3. Multiple sclerosis She will continue under the care of her primary care physician for this. 4. GERD She will continue medical management per internal medicine. She states she is pending an outpatient evaluation by gastroenterology. Comment: The above was discussed with patient. This note was generated with [employer] dictation software. It may contain incorrect words, spelling, and punctuation that were not noted in checking the note before signing.
[2018-03-26 22:53] LABS: Bacteria 0 SEEN /hpf (None Seen); Mucous, Urine 0 SEEN /hpf (<or=2+); Red Blood Cells-Urine 0 SEEN /hpf (0-5); Squamous Epithelial Cells - UA 0 SEEN /hpf (5-10); White Blood Cells 0 SEEN /hpf (0-5)
[2018-03-26 23:07] LABS: Color, Urine Yellow (Yellow); Glucose, Dipstick Normal (Normal); Ketone-Dipstick Negative (Negative); Leukocyte Esterase-Dipstick Negative /ul (Negative); Nitrite-Dipstick Negative (Negative); Occult Blood-Urine 25 /ul (Negative); Protein-Dipstick Negative (Negative); Specific Gravity, Urine 1.015 (1.002-1.030); Urine Bilirubin Dipstick Negative (Negative); Urine Clarity Clear (Clear); Urine Urobilinogen Normal (Normal)
[2018-03-27] VITALS (43 sets, daily range): BP systolic 115–190; BP diastolic 70–111; PULSE 52–100; RESP 14–27; TEMP 36.7–37.3; O2SAT 20–100
[2018-03-27 05:32] LABS: Absolute Lymphocyte Count 1.62 X10^3/ul (0.83-4.51); Absolute Neutrophil Count 7.9 X10^3/uL (2.0-7.7); Basophil# 0.02 X10^3/uL; Basophil% 0.2 % (0-1); Eosinophil# 0.12 X10^3/uL; Eosinophils% 1.2 % (0-5); Hematocrit 43.6 % (37-47); Hemoglobin 14.4 g/dl (12.0-15.0); Lymphocyte # 1.62 X10^3/ul (4.0); Lymphocyte % 15.7 % (19-41); Mean Corpuscular Volume 84.8 fL (81-99); Mean Platelet Vol. 10.1 fl (6.2-12.0); Monocyte# 0.71 X10^3/uL; Monocyte% 6.9 % (0-10); Neutrophil # 7.85 X10^3/uL (2.7-7.7); Neutrophil % 75.9 % (47-70); Platelet Count 308 K/mm3 (150-450); RBC Distribution Width CV 14.5 % (11.6-14.6); RBC Distribution Width SD 44.7 fl (35.1-43.9); Red Blood Count 5.14 M/mm3 (4.2-5.4); White Blood Count 10.3 K/mm3 (4.4-11.0)
[2018-03-27 05:38] LABS: Prothrombin Time (Protime)PT. 13.5 SECONDS (11.7-14.9)
[2018-03-27 05:39] LABS: Partial Thromboplast Time 27.7 Seconds (24.1-36.2)
[2018-03-27 05:41] LABS: POSITIVE COUNT NO; POSITIVE DIFFERENTIAL NO; POSITIVE MORPHOLOGY NO
[2018-03-27 05:49] LABS: Anion Gap 8 (5-15); BUN 11 mg/dL (7-18); BUN/Creat Ratio 11.3 RATIO (10-20); Calcium,Total 9.1 mg/dL (8.5-10.1); Chloride 102 mmol/L (98-107); Cholesterol 199 mg/dL (200); Creatinine, Serum 0.97 mg/dL (0.55-1.02); EST Glomerular Filtration Rate 60 mL/min (>60); Est Glom Filt Rate - Afr Amer 73 mL/min (>60); Estimated Creatinine Clearance 47.27 ml/min; Glucose 99 mg/dL (74-106); High Density Lipoprotein 55 mg/dL; Potassium 4.3 mmol/L (3.5-5.1); Sodium Level 138 mmol/L (136-145); Triglycerides 106 mg/dL; Very Low Density Lipoprotein 21 mg/dL (5-40)
--- NOTE | 2018-03-27 05:55 | EKG12_ITS ---
Test Reason : AM EKG Blood Pressure : / mmHG Vent. Rate : 064 BPM Atrial Rate : 064 BPM P-R Int : 158 ms QRS Dur : 068 ms QT Int : 440 ms P-R-T Axes : 041 -10 034 degrees QTc Int : 453 ms Normal sinus rhythm Normal ECG Confirmed by ILA CARDOZO, JACKELYN ([id number]), production editor ROSMERY SHAHID ([id number]) on 03/29/2018 1:49:41 PM Referred By: SALOME Confirmed By:JACKELYN THORPE MD
[2018-03-27] MEDS: Levothyroxine 50 MCG Tablet PO (06:35)
[2018-03-27] MEDS: Metoprolol Tartrate 25 MG Tablet 12.5 MG PO ×2 (06:35→17:20)
[2018-03-27] MEDS: Aspirin E.C. 81 MG Tablet PO (06:35)
--- NOTE | 2018-03-27 08:40 | PN.CARD_ITS ---
Subjectve: The patient is now status post diagnostic cardiac catheterization. She has had no new acute complaint. She is pending additional evaluation with FFR of the LAD. Objective: Vital Signs Temp Pulse Resp BP Pulse Ox 99 F 52 L 16 152/100 H 97 03/27/18 06:32 03/27/18 06:57 03/27/18 06:32 03/27/18 06:35 03/27/18 06:32 Oxygen Delivery Method Room Air Weight: 159 lb 2.78 oz Body Mass Index (BMI) 28.0 Intake and Output for Last 24 Hours 03/25/18 03/26/18 03/27/18 23:59 23:59 23:59 Intake Total 440 / 440 240 / 240 Balance 440 / 440 240 / 240 General: Awake, Alert, Oriented x 3, Cooperative, No Acute Distress HEENT: Atraumatic, Normocephalic, PERRL, EOMI, Sclera Non Icteric Oral: Moist Mucosa Neck: Supple, Good ROM, No JVD Lungs: Clear to auscultation Cardiovascular: Regular Rhythm, Normal S1, Normal S2 Vascular: Normal Femoral Pulses Abdomen: Bowel Sounds Present, Soft, Non Tender Extremities: No Cyanosis, No Clubbing, No edema Psych/Mental Status: Appropriate, Normal Affect 03/26/18 12:05: Troponin I < 0.015 03/26/18 14:35: Troponin I < 0.015 03/26/18 22:50: Urine Color Yellow, Urine Clarity Clear, Urine pH 7.0, Ur Specific [place] 1.015, Urine Protein Negative, Urine Glucose (UA) Normal, Urine Ketones Negative, Urine Occult Blood 25 H, Urine Nitrite Negative, Urine Bilirubin Negative, Urine Urobilinogen Normal, Ur Leukocyte Esterase Negative, Urine RBC 0 SEEN, Urine WBC 0 SEEN 03/27/18 05:05: Sodium 138, Potassium 4.3, Chloride 102, Carbon Dioxide 28.0, Anion Gap 8, BUN 11, Creatinine 0.97, Est GFR (MDRD) Af Amer 73, Est GFR (MDRD) Non-Af 60, BUN/Creatinine Ratio 11.3, Glucose 99, Calcium 9.1, Triglycerides 106 , Cholesterol 199, LDL Cholesterol 123, VLDL Cholesterol 21, HDL Cholesterol 55 03/27/18 05:05: WBC 10.3, RBC 5.14, Hgb 14.4, Hct 43.6, MCV 84.8, MCH 28.0, MCHC 33.0, RDW 14.5, RDW Differential 44.7 H, Plt Count 308, MPV 10.1, Immature Gran % (Auto) 0.100, Neut % (Auto) 75.9 H, Lymph % (Auto) 15.7 L, [place] % (Auto) 6.9, Eos % (Auto) 1.2, Baso % (Auto) 0.2, Absolute Neuts (auto) 7.9 H, Total Counted Not Reportable 03/27/18 05:05: PT 13.5, INR 1.0, APTT 27.7 Rhythm: Sinus rhythm EKG: Sinus rhythm; no acute ECG changes Cardiac Cath: Please see official report Medical Necessity - Tobacco Use Smoking Status: Never smoker Assessment/Plan 1. CAD The patient presents with recurrent chest pain. She states this is different from her gastrointestinal related symptoms. The patient has undergone evaluation with diagnostic cardiac catheterization. The findings does raise concern of proximal LAD calcification/stenosis. Based upon the patient's clinical course, the cardiac catheterization findings, the previous exercise tolerance test/nuclear imaging findings, the case was discussed with Dr. Villagomez of interventional cardiology. The consensus was to proceed with further evaluation of the LAD with FFR. Depending upon the findings the patient may or may not need LAD PCI. In the interim the patient will initiate medical management prior to this procedure. This will include antiplatelet therapy. It will also include additional medications to assist with blood pressure control and cardiovascular risk factor control. 2. Hypothyroidism She will continue medical management as deemed appropriate. 3. Multiple sclerosis She will continue under the care of her primary care physician for this. 4. GERD She will continue medical management per internal medicine. She states she is pending an outpatient evaluation by gastroenterology. Comment: The above was discussed with patient, her multiple family members present, and Dr. Villagomez. This note was generated with [employer] dictation software. It may contain incorrect words, spelling, and punctuation that were not noted in checking the note before signing.
--- NOTE | 2018-03-27 08:48 | CASEMGMT ---
According to [facility] website, the following are in-network tertiary facilities: [facility], [place], [facility], [place], [facility], [place], [facility], and . Elicia CASTILLO CM
--- NOTE | 2018-03-27 09:33 | CL.D_ITS ---
Patient Name: NANDO RUST Study Date: 03/27/2018 Performing: Drew Modi MD Ht: 64 inches 163 cm : 1950 Wt: 158.9 lbs 72 kg Age: 67 Gender: female BSA: 1.78 PROCEDURE(S) PERFORMED PT11-MRT/COR/LV CLINICAL PROFILE AND INDICATIONS Indications: Worsening Angina, Suspected CAD Heart Failure: None Stress/Imaging Stress Test w/SPECT MPI: No Angina Classification Anginal Classification w/in 2 Weeks: CCS IV CAD Presentations: Unstable angina. CONCLUSIONS Elevated Left Ventricular End Diastolic Pressure Normal LV size, wall motion,and systolic function LVEF: by LV gram 60 % [place] Multivessel CAD (predominantly LAD) Mitral Valve Insufficiency Mild RECOMMENDATIONS Risk factor modification Medical therapy Staged for FFR DESCRIPTION OF PROCEDURE The patient arrived to the procedure lab. The risks and benefits of the procedure as well as a full d escription of our services here and current unavailability of surgical backup were fully explained to the patient and/or their significant other prior to the catheterization. The Timeout was completed, verifying the correct patient and procedure. The patient's procedural site was prepped and draped in the usual fashion. Local anesthetic was given subcutaneously to right groin region with Lidocaine 2%. Using a modified Seldinger technique, arterial access was obtained via the right femoral artery, a 4 Fr sheath was inserted Left Coronary Artery selective angiography was performed in multiple views us ing a 4 Fr. JL5 catheter. Right Coronary Artery selective angiography was then performed in multiple views using a 4 Fr. 3DRC catheter. Left Ventriculography was performed in JANE projection using a 4 Fr . Pigtail catheter. LV to AO pullback pressures were then recorded.The arterial sheath was sutured in place with heparinized normal saline under pressure CORONARY ANGIOGRAPHY DOMINANCE: Right Dominant LEFT HEART ASSESSMENT Left Ventricular Ejection Fraction: by LV Gram 60 % Normal LV wall motion Elevated Left Ventricular End Diastolic Pressure LVEDP: 23 mmHg LEFT MAIN: Mild luminal irregularities LEFT ANTERIOR DECENDING ARTERY: PROX LAD: Mild calcification, Eccentric: Hazy: 50 % Stenosis CIRCUMFLEX ARTERY: MID CIRC: Mild luminal irregularities RIGHT CORONARY ARTERY: Mild luminal irregularities VALVE FINDINGS: Normal Aortic Valve function Mitral Valve Insufficiency - Grade 1 AORTIC ROOT: Angiographically normal COMPLICATIONS No Complications PROCEDURE MEDICATIONS Versed 1 mg IV Versed 1 mg IV Oxygen: 2 L/min via nasal cannula Brilinta 180 mg PO @ 03/27/2018 08:30:20 Nitro glycerin 25mg / 250ml D5W @ 5 mcg/min IV started 03/27/2018 08:35:48 SUMMARY OF HEMODYNAMIC DATA Time AIR REST ECG 07:34:22 AO 175/96 (131) SA 08:06:57 LV 194/8, 32 08:16:19 LV 197/7, 23 08:16:27 LV 193/8, 32 08:17:24 LV 188/6, 28 08:17:31 LVp 192/5, 20 08:17:36 AOp 191/90 (132) 08:17:41 Signed By Drew Modi MD On 03/27/2018 09:33:14 Drew Modi MD
[2018-03-27] MEDS: traMADol 50 MG Tablet PO ×2 (09:56→21:38)
[2018-03-27] MEDS: Lisinopril 10 MG Tablet PO ×2 (09:58→17:21)
[2018-03-27] MEDS: Ondansetron 4 MG/2 ML Vial IV (09:58)
[2018-03-27] MEDS: Morphine 2 MG/ML Syringe 1 MG IV ×2 (10:59→18:27)
[2018-03-27] MEDS: Pantoprazole Sodium 40 MG Tablet PO (11:01)
[2018-03-27] MEDS: 0.9% NaCl Peripheral Flush Adult/Peds IV (11:01)
[2018-03-27 12:29] LABS: M R Staph aureus DNA By PCR Negative (Negative); Probe Check PASS; Specimen Processing Control PASS
--- NOTE | 2018-03-27 12:41 | NURSING ---
Pt transported per laboratory analyst RN back to laboratory analyst
--- NOTE | 2018-03-27 13:59 | CL.I_ITS ---
Patient Name: NANDO RUST Study Date: 03/27/2018 Performing: Ht: 64.17 inches 163 cm : 1950 Wt: 158.73 lbs 72 kg Age: 67 Gender: female BSA: 1.78 PROCEDURE(S) PERFORMED [id number] W OR WO PTCA, SINGLE CORONARY ARTERY CLINICAL PROFILE AND CO-MORBIDITIES Indications: ACS <= 24 hrs, New Onset Angina <= 2 months, Worsening Angina Heart Failure: None Angina Classification Anginal Classification w/in 2 Weeks: CCS III CAD Presentations: Unstable angina. Comorbidities/Risk Factors: Hypertension Dyslipidemia CONCLUSIONS Successful PTCA/SAHARA of the Successful FFR guided PCI of proximal LAD with a 2.5 x 20 Promus Synergy, post dilated proximally with a 3.0 and 3.5 NC balloon; 75%-->0%, no dissection. RECOMMENDATIONS Highly recommend quitting all tobacco products Follow up with primary communications agent Risk factor modification ERICK Vogel Plavix for at least 12 months Routine post interventional care Refer for Outpatient Cardiac Rehab Manual sheath removal per protocol Follow up with Dr. Rian Grande for at least 12 months DESCRIPTION OF PROCEDURE The patient arrived to the procedure lab. The risks and benefits of the procedure as well as a full d escription of our services here and current unavailability of surgical backup were fully explained to the patient and/or their significant other prior to the catheterization. The Timeout was completed, verifying the correct patient and procedure. The patient's procedural site was prepped and draped in the usual fashion. Local anesthetic was given subcutaneously to right groin region with Lidocaine 2% Using a modified Seldinger technique, . EBU 3.5 Guide catheter was inserted and engaged into the LCA. The FFR/iFR wire was inserted. Adenosin e was then given per protocol. Pressures and FFR/iFR were then recorded. Angiogram performed pre ball oon dilatation. 2.0 x 15 Emerge Balloon catheter was inserted. Balloon catheter was advanced across l esion in the LAD, proximal. PTCA balloon inflated at 6 atms for 10 secs. 2.5 x 20 Synergy Drug Elutin g stent was inserted. Angiogram performed pre stent deployment. Drug Eluting stent was advanced acros s the lesion in the LAD, proximal. 3.0 x 8 NC Emerge Balloon catheter was inserted. Balloon catheter was advanced across lesion in the LAD, proximal. Angiogram performed post stent deployment. Angiogram performed post balloon dilatation. Adenosine was then given per protocol. Pressures and FFR/iFR were then recorded. 3.50 x 8 NC Emerge Balloon catheter was inserted. Balloon catheter was advanced acros s lesion in the LAD, proximal. Angiogram performed pre balloon dilatation. Angiogram performed post b alloon dilatation. Angiogram performed post balloon dilatation. The arterial sheath was sutured in place and capped INTERVENTION INFORMATION LESION SITE: LAD (Proximal) Lesion Complexity: High/C, lesion at bifurcation: No, thrombus present: No, lesion length: 20 mm, cul prit lesion: Yes Pre Stenosis: 75 % Pre intervention LEONELA flow: 3 PROCEDURE: FFR, Drug Eluting Stent with pre and post dilatation Post Stenosis: 0 % Post intervention LEONELA flow: 3 Lesion Devices: [employer] 6 Fr EBU3.5 100cm Guide Catheter United Coronary FFR Wire Seb Sci EMERGE MR 2.00x15 BALLOON Seb Sci Synergy MR SAHARA 2.50x20 Seb Sci NC EMERGE MR 3.00x08 BALLOON Seb Sci NC EMERGE MR 3.50x08 BALLOON COMPLICATIONS No Complications PROCEDURE MEDICATIONS Oxygen: 2 L/min via nasal cannula Adenosine drip for FFR 20.2 ml IV 03/27/2018 13:26:05 Adenosine 20.2 mg IV @ 03/27/2018 13:40:31 Heparin 6000 unit(s) IV 03/27/2018 13:16:18 Nitro 200 mcg IC 03/27/2018 13:19:30 Nitro 200 mcg IC 03/27/2018 13:19:30 IV Bolus: .9 NaCl 750 ml total 03/27/2018 13:16:23 IV Fluids: .9 NaCl decreased to 150 ml/hr 03/27/2018 13:49:58 SUMMARY OF HEMODYNAMIC DATA Time AIR REST ECG 12:58:29 AO 129/79 (99) SA 13:18:46
--- NOTE | 2018-03-27 14:08 | EKG12_ITS ---
Test Reason : PCI Blood Pressure : / mmHG Vent. Rate : 065 BPM Atrial Rate : 065 BPM P-R Int : 158 ms QRS Dur : 074 ms QT Int : 438 ms P-R-T Axes : 043 000 043 degrees QTc Int : 455 ms Normal sinus rhythm Normal ECG Confirmed by ILA CARDOZO, JACKELYN ([id number]), newspaper editor managing ROSMERY SHAHID ([id number]) on 03/29/2018 1:53:09 PM Referred By: CATHY Confirmed By:JACKELYN THORPE MD
[2018-03-27 14:10] LABS: ACT Activated Clotting Time 208 sec (74-137)
[2018-03-27] MEDS: 0.9% Normal Saline 1,000 ML 150 ML IV (14:24)
--- NOTE | 2018-03-27 14:28 | CASEMGMT ---
Attempted to complete RN CM Assessment. 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 Kathleen BSN RN ACM
--- NOTE | 2018-03-27 15:19 | CASEMGMT ---
See RN CM Assessment Link. DC PLAN: home Pt has MS, states she uses cane, has walker and wheelchair if needed. is able to assist.. Pt was independent per their report prior to admission. anticipate home. [employer] savings card given to pt's and explained. Kathleen BELLE RN ACM
[2018-03-27] MEDS: LORazepam 1 MG Tablet PO (16:29)
[2018-03-27 16:31] LABS: ACT Activated Clotting Time 142 sec (74-137)
--- NOTE | 2018-03-27 17:14 | PCM.PN.HOSP ---
Subjective: Patient was seen and examined. Status post cardiac cath with findings of proximal LAD lesion. Status post SAHARA. Vitals are stable Objective: Physical Exam General: Alert, Oriented x3, Cooperative, No apparent distress HEENT: Atraumatic, PERRLA, EOMI, Normocephalic Oral: Moist Mucosa Neck: Supple, No JVD, Negative Carotid Bruits Lungs: Clear to auscultation, Normal air movement, - Cardiovascular: Regular rate, Regular Rhythm - No chest wall compression tenderness, Normal S1, Normal S2, No murmurs Abdomen: Bowel Sounds Present, Soft, Non Tender, Non-Distended, No Hepato-splenomegaly Extremities: No edema Skin: No rashes, No breakdown Musculoskeletal: No Tenderness to Palpation of Joints or Extremities Lymphatic: No Cervical, Supraclavicular, or Inguinal Adenopathy Neurological: Cranial nerves II-XII grossly intact, Neuro grossly intact Psych/Mental Status: Normal Affect, Appropriate Vitals/I&O's: Vital Signs Temp Pulse Resp BP Pulse Ox 98.4 F 65 14 115/70 99 03/27/18 12:00 03/27/18 12:00 03/27/18 12:00 03/27/18 12:00 03/27/18 12:00 Oxygen Flow Rate (L/min) 2 Oxygen Delivery Method Room Air Weight: 72.2 kg Body Mass Index (BMI) 28.0 Intake and Output for Last 24 Hours 03/25/18 03/26/18 03/27/18 23:59 23:59 23:59 Intake Total 440 / 440 290 / 290 Balance 440 / 440 290 / 290 Laboratory Results 03/26/18 22:50: Urine Color Yellow, Urine Clarity Clear, Urine pH 7.0, Ur Specific [place] 1.015, Urine Protein Negative, Urine Glucose (UA) Normal, Urine Ketones Negative, Urine Occult Blood 25 H, Urine Nitrite Negative, Urine Bilirubin Negative, Urine Urobilinogen Normal, Ur Leukocyte Esterase Negative, Urine RBC 0 SEEN, Urine WBC 0 SEEN, Ur Squamous Epith Cells 0 SEEN, Urine Bacteria 0 SEEN, Urine Mucus 0 SEEN 03/27/18 05:05: Sodium 138, Potassium 4.3, Chloride 102, Carbon Dioxide 28.0, Anion Gap 8, BUN 11, Creatinine 0.97, Estim Creat Clear Calc 47.27, Est GFR (MDRD) Af Amer 73, Est GFR (MDRD) Non-Af 60, BUN/Creatinine Ratio 11.3, Glucose 99, Calcium 9.1, Triglycerides 106, Cholesterol 199, LDL Cholesterol 123, VLDL Cholesterol 21, HDL Cholesterol 55 03/27/18 05:05: WBC 10.3, RBC 5.14, Hgb 14.4, Hct 43.6, MCV 84.8, MCH 28.0, MCHC 33.0, RDW 14.5, RDW Differential 44.7 H, Plt Count 308, MPV 10.1, Immature Gran % (Auto) 0.100, Neut % (Auto) 75.9 H, Lymph % (Auto) 15.7 L, [place] % (Auto) 6.9, Eos % (Auto) 1.2, Baso % (Auto) 0.2, Absolute Neuts (auto) 7.9 H, Absolute Lymphs (auto) 1.62, Total Counted Not Reportable 03/27/18 05:05: PT 13.5, INR 1.0, APTT 27.7 03/27/18 10:15: MRSA (PCR) Negative 03/27/18 13:49: Activated Clotting Time 208 H 03/27/18 16:18: Activated Clotting Time 142 H Current Medications Acetaminophen (Tylenol) 650 mg PO Q6H PRN PRN PRN Reason: Mild Pain (1-3)/Temp > 100.7 F Aspirin (Ecotrin) 81 mg PO DAILY@0800 [facility] Last Admin: 03/27/18 06:35 Dose: 81 mg Atorvastatin Calcium (Lipitor) 40 mg PO QHS [facility] Atropine Sulfate () 0.5 mg IV UD PRN PRN Reason: HR <50 bpm Bisacodyl (Dulcolax) 5 mg PO DAILY PRN PRN PRN Reason: Constipation Ergocalciferol (Vitamin D) 50,000 unit PO [facility] Last Admin: 03/26/18 13:25 Dose: 50,000 unit Folic Acid (Folic Acid) 1 mg PO DAILY@0800 [facility] Last Admin: 03/27/18 09:55 Dose: Not Given Hydralazine HCl (Apresoline Iv) 5 mg IV Q6H PRN PRN PRN Reason: BLOOD PRESSURE Sodium Chloride () 1,000 mls @ 0 mls/hr IV .Q0M [facility] PRN Reason: KVO Nitroglycerin/Dextrose 25 mg/ (N/A) 250 mls @ 3 mls/hr IV .[id number] [facility] PRN Reason: 5 MCG/MIN Last Admin: 03/27/18 09:05 Dose: 3 mls/hr Sodium Chloride () 1,000 mls @ 150 mls/hr IV .Q6H40M [facility] Stop: 03/27/18 20:47 Levothyroxine Sodium (Synthroid) 50 mcg PO DAILY@0600 [facility] Last Admin: 03/27/18 06:35 Dose: 50 mcg Lisinopril (Zestril) 10 mg PO BID [facility] Last Admin: 03/27/18 09:58 Dose: 10 mg Lorazepam (Ativan) 1 mg PO Q6H PRN PRN PRN Reason: BACK SPASMS/ANXIETY Last Admin: 03/27/18 16:29 Dose: 1 mg Magnesium Hydroxide (Milk Of Magnesia) 30 ml PO DAILY PRN PRN Reason: Constipation Metoclopramide HCl (Reglan) 5 mg IV Q6 PRN PRN Reason: NAUSEA/VOMITING Metoprolol Tartrate (Lopressor (Beta Jina)) 12.5 mg PO BID [facility] Last Admin: 03/27/18 06:35 Dose: 12.5 mg Morphine Sulfate () 1 mg IV Q4H PRN PRN PRN Reason: MOD-SEVERE PAIN (4-10/10) Last Admin: 03/27/18 10:59 Dose: 1 mg Nitroglycerin (Nitrostat) 0.4 mg SUBLINGUAL Q5M PRN PRN Reason: CARDIAC/CHEST PAIN Ondansetron HCl (Zofran) 4 mg IV Q8H PRN PRN PRN Reason: NAUSEA Last Admin: 03/27/18 09:58 Dose: 4 mg Pantoprazole Sodium (Protonix) 40 mg PO DAILY [facility] Last Admin: 03/27/18 11:01 Dose: 40 mg Psyllium Hydrophilic Mucilloid (Metamucil) 1 packet PO DAILY PRN PRN PRN Reason: CONSTIPATION Sodium Chloride () 5 - 30 ml IV UD PRN PRN Reason: SALINE FLUSH Last Admin: 03/27/18 11:01 Dose: 10 ml Sodium Chloride () 500 ml IV BOLUS PRN PRN Reason: VASO-VAGAL PROTOCOL Ticagrelor (Brilinta) 90 mg PO BID [facility] Tramadol HCl (Ultram) 50 mg PO Q8H PRN PRN PRN Reason: PAIN Last Admin: 03/27/18 09:56 Dose: 50 mg Medical Necessity - Tobacco Use Smoking Status: Never smoker Assessment/Plan All Active Problems Chest pain (Acute) 67 year old F with past medical history of multiple sclerosis, hypothyroidism who comes in with complaints of chest pain that happened last night, persistent until this morning. Chest pain was described as substernal, pressure-like, associated with feeling of unwell. 1. Chest pain, atypical, recent stress test has been negative, findings have been negative. Had a cardiac cath this morning -shows proximal LAD lesion, status post drug-eluting stent to proximal LAD, cardiology following, in ICU post cath. Lipid profile shows triglycerides 106, total cholesterol 199, LDL 122, HDL 55, will continue on atorvastatin, aspirin, Brilinta, metoprolol. Follow-up post cardiac cath orders per cardiology. 2. Hypertension, uncontrolled, on metoprolol, lisinopril, as needed hydralazine, will increase metoprolol to 25 mg p.o. twice daily 3. Hypothyroidism, on replacement 4. DVT PPx- Lovenox SC Code Visit Inpatient E&M: 49029 Subs Hosp L3
--- NOTE | 2018-03-27 17:24 | PN_ITS ---
Subjective: Patient was seen and examined. Status post cardiac cath with findings of proximal LAD lesion. Status post SAHARA. Vitals are stable Objective: Physical Exam General: Alert, Oriented x3, Cooperative, No apparent distress HEENT: Atraumatic, PERRLA, EOMI, Normocephalic Oral: Moist Mucosa Neck: Supple, No JVD, Negative Carotid Bruits Lungs: Clear to auscultation, Normal air movement, - Cardiovascular: Regular rate, Regular Rhythm - No chest wall compression tenderness, Normal S1, Normal S2, No murmurs Abdomen: Bowel Sounds Present, Soft, Non Tender, Non-Distended, No Hepato- splenomegaly Extremities: No edema Skin: No rashes, No breakdown Musculoskeletal: No Tenderness to Palpation of Joints or Extremities Lymphatic: No Cervical, Supraclavicular, or Inguinal Adenopathy Neurological: Cranial nerves II-XII grossly intact, Neuro grossly intact Psych/Mental Status: Normal Affect, Appropriate Vitals/I&O's: Vital Signs Temp Pulse Resp BP Pulse Ox 98.4 F 65 14 115/70 99 03/27/18 12:00 03/27/18 12:00 03/27/18 12:00 03/27/18 12:00 03/27/18 12:00 Oxygen Flow Rate (L/min) 2 Oxygen Delivery Method Room Air Weight: 72.2 kg Body Mass Index (BMI) 28.0 Intake and Output for Last 24 Hours 03/25/18 03/26/18 03/27/18 23:59 23:59 23:59 Intake Total 440 / 440 290 / 290 Balance 440 / 440 290 / 290 Laboratory Results 03/26/18 22:50: Urine Color Yellow, Urine Clarity Clear, Urine pH 7.0, Ur Specific [place] 1.015, Urine Protein Negative, Urine Glucose (UA) Normal, Urine Ketones Negative, Urine Occult Blood 25 H, Urine Nitrite Negative, Urine Bilirubin Negative, Urine Urobilinogen Normal, Ur Leukocyte Esterase Negative, Urine RBC 0 SEEN, Urine WBC 0 SEEN, Ur Squamous Epith Cells 0 SEEN, Urine Bacteria 0 SEEN, Urine Mucus 0 SEEN 03/27/18 05:05: Sodium 138, Potassium 4.3, Chloride 102, Carbon Dioxide 28.0, Anion Gap 8, BUN 11, Creatinine 0.97, Estim Creat Clear Calc 47.27, Est GFR ( MDRD) Af Amer 73, Est GFR (MDRD) Non-Af 60, BUN/Creatinine Ratio 11.3, Glucose 99, Calcium 9.1, Triglycerides 106, Cholesterol 199, LDL Cholesterol 123, VLDL Cholesterol 21, HDL Cholesterol 55 03/27/18 05:05: WBC 10.3, RBC 5.14, Hgb 14.4, Hct 43.6, MCV 84.8, MCH 28.0, MCHC 33.0, RDW 14.5, RDW Differential 44.7 H, Plt Count 308, MPV 10.1, Immature Gran % (Auto) 0.100, Neut % (Auto) 75.9 H, Lymph % (Auto) 15.7 L, [place] % (Auto) 6.9, Eos % (Auto) 1.2, Baso % (Auto) 0.2, Absolute Neuts (auto) 7.9 H, Absolute Lymphs (auto) 1.62, Total Counted Not Reportable 03/27/18 05:05: PT 13.5, INR 1.0, APTT 27.7 03/27/18 10:15: MRSA (PCR) Negative 03/27/18 13:49: Activated Clotting Time 208 H 03/27/18 16:18: Activated Clotting Time 142 H Current Medications Acetaminophen (Tylenol) 650 mg PO Q6H PRN PRN PRN Reason: Mild Pain (1-3)/Temp > 100.7 F Aspirin (Ecotrin) 81 mg PO DAILY@0800 REPLACED BY [facility] Last Admin: 03/27/18 06:35 Dose: 81 mg Atorvastatin Calcium (Lipitor) 40 mg PO QHS REPLACED BY [facility] Atropine Sulfate () 0.5 mg IV UD PRN PRN Reason: HR <50 bpm Bisacodyl (Dulcolax) 5 mg PO DAILY PRN PRN PRN Reason: Constipation Ergocalciferol (Vitamin D) 50,000 unit PO REPLACED BY [facility] Last Admin: 03/26/18 13:25 Dose: 50,000 unit Folic Acid (Folic Acid) 1 mg PO DAILY@0800 REPLACED BY [facility] Last Admin: 03/27/18 09:55 Dose: Not Given Hydralazine HCl (Apresoline Iv) 5 mg IV Q6H PRN PRN PRN Reason: BLOOD PRESSURE Sodium Chloride () 1,000 mls @ 0 mls/hr IV .Q0M REPLACED BY [facility] PRN Reason: KVO Nitroglycerin/Dextrose 25 mg/ (N/A) 250 mls @ 3 mls/hr IV .[id number] REPLACED BY [facility] PRN Reason: 5 MCG/MIN Last Admin: 03/27/18 09:05 Dose: 3 mls/hr Sodium Chloride () 1,000 mls @ 150 mls/hr IV .[id number] REPLACED BY [facility] Stop: 03/27/18 20:47 Levothyroxine Sodium (Synthroid) 50 mcg PO DAILY@0600 REPLACED BY [facility] Last Admin: 03/27/18 06:35 Dose: 50 mcg Lisinopril (Zestril) 10 mg PO BID REPLACED BY [facility] Last Admin: 03/27/18 09:58 Dose: 10 mg Lorazepam (Ativan) 1 mg PO Q6H PRN PRN PRN Reason: BACK SPASMS/ANXIETY Last Admin: 03/27/18 16:29 Dose: 1 mg Magnesium Hydroxide (Milk Of Magnesia) 30 ml PO DAILY PRN PRN Reason: Constipation Metoclopramide HCl (Reglan) 5 mg IV Q6 PRN PRN Reason: NAUSEA/VOMITING Metoprolol Tartrate (Lopressor (Beta Jina)) 12.5 mg PO BID REPLACED BY [facility] Last Admin: 03/27/18 06:35 Dose: 12.5 mg Morphine Sulfate () 1 mg IV Q4H PRN PRN PRN Reason: MOD-SEVERE PAIN (4-10/10) Last Admin: 03/27/18 10:59 Dose: 1 mg Nitroglycerin (Nitrostat) 0.4 mg SUBLINGUAL Q5M PRN PRN Reason: CARDIAC/CHEST PAIN Ondansetron HCl (Zofran) 4 mg IV Q8H PRN PRN PRN Reason: NAUSEA Last Admin: 03/27/18 09:58 Dose: 4 mg Pantoprazole Sodium (Protonix) 40 mg PO DAILY REPLACED BY [facility] Last Admin: 03/27/18 11:01 Dose: 40 mg Psyllium Hydrophilic Mucilloid (Metamucil) 1 packet PO DAILY PRN PRN PRN Reason: CONSTIPATION Sodium Chloride () 5 - 30 ml IV UD PRN PRN Reason: SALINE FLUSH Last Admin: 03/27/18 11:01 Dose: 10 ml Sodium Chloride () 500 ml IV BOLUS PRN PRN Reason: VASO-VAGAL PROTOCOL Ticagrelor (Brilinta) 90 mg PO BID REPLACED BY [facility] Tramadol HCl (Ultram) 50 mg PO Q8H PRN PRN PRN Reason: PAIN Last Admin: 03/27/18 09:56 Dose: 50 mg Medical Necessity - Tobacco Use Smoking Status: Never smoker Assessment/Plan All Active Problems Chest pain (Acute) 67 year old F with past medical history of multiple sclerosis, hypothyroidism who comes in with complaints of chest pain that happened last night, persistent until this morning. Chest pain was described as substernal, pressure-like, associated with feeling of unwell. 1. Chest pain, atypical, recent stress test has been negative, findings have been negative. Had a cardiac cath this morning -shows proximal LAD lesion, status post drug- eluting stent to proximal LAD, cardiology following, in ICU post cath. Lipid profile shows triglycerides 106, total cholesterol 199, LDL 122, HDL 55, will continue on atorvastatin, aspirin, Brilinta, metoprolol. Follow-up post cardiac cath orders per cardiology. 2. Hypertension, uncontrolled, on metoprolol, lisinopril, as needed hydralazine, will increase metoprolol to 25 mg p.o. twice daily 3. Hypothyroidism, on replacement 4. DVT PPx- Lovenox SC Code Visit Inpatient E&M: 12490 Subs Hosp L3
[2018-03-27] MEDS: Atorvastatin Calcium 40 MG Tablet PO (21:37)
[2018-03-27] MEDS: TICAGRELOR 90 MG TABLET PO (21:37)
[2018-03-27] MEDS: Metoprolol Tartrate 25 MG Tablet PO (21:38)
[2018-03-28] VITALS (33 sets, daily range): BP systolic 101–162; BP diastolic 44–90; PULSE 55–93; RESP 14–26; TEMP 36.7–36.9; O2SAT 97–100; BMI 27.9
--- NOTE | 2018-03-28 01:18 | NURSING ---
#20 Left hand IV where nitro gtt @ 30 mcg/min running is pink, cool, and edematous, flushes well, scant blood return. Attempted x3 IV sticks, #22 in right forearm successful, flushes well, no blood return. BPs came down, nitro gtt held at this time.
[2018-03-28 04:22] LABS: Absolute Lymphocyte Count 1.36 X10^3/ul (0.83-4.51); Absolute Neutrophil Count 14.7 X10^3/uL (2.0-7.7); Basophil# 0.01 X10^3/uL; Basophil% 0.1 % (0-1); Hematocrit 41.2 % (37-47); Hemoglobin 13.6 g/dl (12.0-15.0); Lymphocyte # 1.36 X10^3/ul (4.0); Lymphocyte % 7.7 % (19-41); Mean Corpuscular Hgb 27.8 pg (27.0-32.0); Mean Corpuscular Volume 84.3 fL (81-99); Mean Platelet Vol. 10.3 fl (6.2-12.0); Monocyte# 1.51 X10^3/uL; Monocyte% 8.6 % (0-10); Neutrophil # 14.72 X10^3/uL (2.7-7.7); Neutrophil % 83.3 % (47-70); Platelet Count 328 K/mm3 (150-450); RBC Distribution Width CV 14.7 % (11.6-14.6); RBC Distribution Width SD 44.3 fl (35.1-43.9); Red Blood Count 4.89 M/mm3 (4.2-5.4); White Blood Count 17.7 K/mm3 (4.4-11.0)
[2018-03-28 04:27] LABS: Differential Indicated SCAN CRITERIA MET; POSITIVE COUNT NO; POSITIVE DIFFERENTIAL YES; POSITIVE MORPHOLOGY NO
[2018-03-28 04:29] LABS: ALB/GLOB Ratio 0.7 RATIO (0.9-2.4); AST(SGOT) 15 U/L (15-37); Alanine Aminotransfer ALT/SGPT 18 U/L (13-56); Alkaline Phosphatase 34 U/L (45-117); Anion Gap 10 (5-15); BUN 16 mg/dL (7-18); BUN/Creat Ratio 17.5 RATIO (10-20); Calcium,Total 8.8 mg/dL (8.5-10.1); Chloride 105 mmol/L (98-107); Creatinine, Serum 0.91 mg/dL (0.55-1.02); EST Glomerular Filtration Rate 65 mL/min (>60); Est Glom Filt Rate - Afr Amer 78 mL/min (>60); Estimated Creatinine Clearance 50.38 ml/min; Globulin 4.2 g/dL (2.2-4.2); Glucose 102 mg/dL (74-106); Protein, Total 7.2 g/dL (6.4-8.2); Sodium Level 139 mmol/L (136-145)
[2018-03-28 05:14] LABS: Differential Comment SCANNED
[2018-03-28] MEDS: Levothyroxine 50 MCG Tablet PO (05:45)
[2018-03-28] MEDS: 0.9% NaCl Peripheral Flush Adult/Peds IV (05:45)
[2018-03-28] MEDS: Folic Acid 1 MG Tablet PO (08:07)
[2018-03-28] MEDS: Aspirin E.C. 81 MG Tablet PO (08:07)
--- NOTE | 2018-03-28 08:20 | PCM.PN.CARD ---
Subjectve: The patient is now status post cardiac catheterization and subsequent LAD PCI. She looks better and states she feels better. Objective: Vital Signs Temp Pulse Resp BP Pulse Ox 98.2 F 61 20 H 107/55 L 100 03/28/18 00:00 03/28/18 06:30 03/28/18 06:30 03/28/18 06:30 03/28/18 06:30 Oxygen Flow Rate (L/min) 2 Oxygen Delivery Method Room Air Weight: 151 lb 14.376 oz Body Mass Index (BMI) 28.0 Intake and Output for Last 24 Hours 03/26/18 03/27/18 03/28/18 23:59 23:59 23:59 Intake Total 440 / 440 1472 / 1472 90 / 90 Output Total 225 / 225 100 / 100 Balance 440 / 440 1247 / 1247 -10 / -10 General: Awake, Alert, Oriented x 3, Cooperative, No Acute Distress Neck: No JVD Lungs: Clear to auscultation Cardiovascular: Regular Rhythm, Normal S1, Normal S2 Vascular: Normal Femoral Pulses Abdomen: Bowel Sounds Present, Soft, Non Tender Extremities: No edema 03/28/18 04:00: WBC 17.7 H, RBC 4.89, Hgb 13.6, Hct 41.2, MCV 84.3, MCH 27.8, MCHC 33.0, RDW 14.7 H, RDW Differential 44.3 H, Plt Count 328, MPV 10.3, Immature Gran % (Auto) 0.300, Neut % (Auto) 83.3 H, Lymph % (Auto) 7.7 L, [place] % (Auto) 8.6, Eos % (Auto) 0.0, Baso % (Auto) 0.1, Absolute Neuts (auto) 14.7 H, Total Counted Not Reportable 03/28/18 04:00: Sodium 139, Potassium 4.0, Chloride 105, Carbon Dioxide 24.0, Anion Gap 10, BUN 16, Creatinine 0.91, Est GFR (MDRD) Af Amer 78, Est GFR (MDRD) Non-Af 65, BUN/Creatinine Ratio 17.5, Glucose 102, Calcium 8.8, Total Bilirubin 0.60 Rhythm: Sinus rhythm EKG: Sinus rhythm; no acute ECG changes Medical Necessity - Tobacco Use Smoking Status: Never smoker Assessment/Plan 1. CAD The patient presents with recurrent chest pain. She states this is different from her gastrointestinal related symptoms. The patient has undergone evaluation with diagnostic cardiac catheterization. She also underwent LAD FFR. This was considered abnormal. She subsequently received an LAD PCI/stent. The patient states she feels better today. Her medications have been adjusted. Her vital signs, especially her blood pressure, have come under better control. From a cardiovascular standpoint at the present time the patient will continue medical management. She will need continued future outpatient cardiovascular follow-up. If, with respect to her diagnosis of multiple sclerosis, she is physically able it would be reasonable to consider her for outpatient cardiac rehabilitation therapy as well. 2. Hypothyroidism She will continue medical management as deemed appropriate. 3. Multiple sclerosis She will continue under the care of her primary care physician for this. 4. GERD She will continue medical management per internal medicine. She states she is pending an outpatient evaluation by gastroenterology. Overall, at the present time, the patient will continue cardiovascular medical management. She will continue with future outpatient cardiovascular follow-up. Comment: The above was discussed with patient. This note was generated with [employer] dictation software. It may contain incorrect words, spelling, and punctuation that were not noted in checking the note before signing.
--- NOTE | 2018-03-28 08:23 | PN.CARD_ITS ---
Subjectve: The patient is now status post cardiac catheterization and subsequent LAD PCI. She looks better and states she feels better. Objective: Vital Signs Temp Pulse Resp BP Pulse Ox 98.2 F 61 20 H 107/55 L 100 03/28/18 00:00 03/28/18 06:30 03/28/18 06:30 03/28/18 06:30 03/28/18 06:30 Oxygen Flow Rate (L/min) 2 Oxygen Delivery Method Room Air Weight: 151 lb 14.376 oz Body Mass Index (BMI) 28.0 Intake and Output for Last 24 Hours 03/26/18 03/27/18 03/28/18 23:59 23:59 23:59 Intake Total 440 / 440 1472 / 1472 90 / 90 Output Total 225 / 225 100 / 100 Balance 440 / 440 1247 / 1247 -10 / -10 General: Awake, Alert, Oriented x 3, Cooperative, No Acute Distress Neck: No JVD Lungs: Clear to auscultation Cardiovascular: Regular Rhythm, Normal S1, Normal S2 Vascular: Normal Femoral Pulses Abdomen: Bowel Sounds Present, Soft, Non Tender Extremities: No edema 03/28/18 04:00: WBC 17.7 H, RBC 4.89, Hgb 13.6, Hct 41.2, MCV 84.3, MCH 27.8, MCHC 33.0, RDW 14.7 H, RDW Differential 44.3 H, Plt Count 328, MPV 10.3, Immature Gran % (Auto) 0.300, Neut % (Auto) 83.3 H, Lymph % (Auto) 7.7 L, [place] % (Auto) 8.6, Eos % (Auto) 0.0, Baso % (Auto) 0.1, Absolute Neuts (auto) 14.7 H , Total Counted Not Reportable 03/28/18 04:00: Sodium 139, Potassium 4.0, Chloride 105, Carbon Dioxide 24.0, Anion Gap 10, BUN 16, Creatinine 0.91, Est GFR (MDRD) Af Amer 78, Est GFR (MDRD ) Non-Af 65, BUN/Creatinine Ratio 17.5, Glucose 102, Calcium 8.8, Total Bilirubin 0.60 Rhythm: Sinus rhythm EKG: Sinus rhythm; no acute ECG changes Medical Necessity - Tobacco Use Smoking Status: Never smoker Assessment/Plan 1. CAD The patient presents with recurrent chest pain. She states this is different from her gastrointestinal related symptoms. The patient has undergone evaluation with diagnostic cardiac catheterization. She also underwent LAD FFR. This was considered abnormal. She subsequently received an LAD PCI/stent. The patient states she feels better today. Her medications have been adjusted. Her vital signs, especially her blood pressure, have come under better control. From a cardiovascular standpoint at the present time the patient will continue medical management. She will need continued future outpatient cardiovascular follow-up. If, with respect to her diagnosis of multiple sclerosis, she is physically able it would be reasonable to consider her for outpatient cardiac rehabilitation therapy as well. 2. Hypothyroidism She will continue medical management as deemed appropriate. 3. Multiple sclerosis She will continue under the care of her primary care physician for this. 4. GERD She will continue medical management per internal medicine. She states she is pending an outpatient evaluation by gastroenterology. Overall, at the present time, the patient will continue cardiovascular medical management. She will continue with future outpatient cardiovascular follow-up. Comment: The above was discussed with patient. This note was generated with [employer] dictation software. It may contain incorrect words, spelling, and punctuation that were not noted in checking the note before signing.
--- NOTE | 2018-03-28 10:00 | EKG12_ITS ---
Test Reason : AM EKG Blood Pressure : / mmHG Vent. Rate : 060 BPM Atrial Rate : 060 BPM P-R Int : 152 ms QRS Dur : 078 ms QT Int : 428 ms P-R-T Axes : 041 003 043 degrees QTc Int : 428 ms Normal sinus rhythm Normal ECG Confirmed by ILA CARDOZO, JACKELYN ([id number]), script editor ROSMERY SHAHID ([id number]) on 03/29/2018 1:52:59 PM Referred By: KENY MCMAHON Confirmed By:JACKELYN THORPE MD
[2018-03-28] MEDS: Metoprolol Tartrate 25 MG Tablet PO (10:03)
[2018-03-28] MEDS: Lisinopril 10 MG Tablet PO (10:03)
[2018-03-28] MEDS: TICAGRELOR 90 MG TABLET PO (10:03)
[2018-03-28] MEDS: Pantoprazole Sodium 40 MG Tablet PO (10:03)
--- NOTE | 2018-03-28 10:17 | PN_ITS ---
Subjective: Patient was seen and examined. Denies any new complaints. No acute events overnight. Denies Chest pain no dizziness or palpitations Objective: Physical Exam General: Alert, Oriented x3, Cooperative, No apparent distress HEENT: Atraumatic, PERRLA, EOMI, Normocephalic Oral: Moist Mucosa Neck: Supple, No JVD, Negative Carotid Bruits Lungs: Clear to auscultation, Normal air movement, - Cardiovascular: Regular rate, Regular Rhythm - No chest wall compression tenderness, Normal S1, Normal S2, No murmurs Abdomen: Bowel Sounds Present, Soft, Non Tender, Non-Distended, No Hepato- splenomegaly Extremities: No edema Skin: No rashes, No breakdown Musculoskeletal: No Tenderness to Palpation of Joints or Extremities Lymphatic: No Cervical, Supraclavicular, or Inguinal Adenopathy Neurological: Cranial nerves II-XII grossly intact, Neuro grossly intact Psych/Mental Status: Normal Affect, Appropriate Vitals/I&O's: Vital Signs Temp Pulse Resp BP Pulse Ox 98.4 F 67 18 108/78 99 03/28/18 08:00 03/28/18 10:03 03/28/18 08:00 03/28/18 10:03 03/28/18 08:00 Oxygen Flow Rate (L/min) 2 Oxygen Delivery Method Room Air Weight: 68.9 kg Body Mass Index (BMI) 28.0 Intake and Output for Last 24 Hours 03/26/18 03/27/18 03/28/18 23:59 23:59 23:59 Intake Total 440 / 440 1472 / 1472 90 / 90 Output Total 225 / 225 100 / 100 Balance 440 / 440 1247 / 1247 -10 / -10 Laboratory Results 03/27/18 10:15: MRSA (PCR) Negative 03/27/18 13:49: Activated Clotting Time 208 H 03/27/18 16:18: Activated Clotting Time 142 H 03/28/18 04:00: WBC 17.7 H, RBC 4.89, Hgb 13.6, Hct 41.2, MCV 84.3, MCH 27.8, MCHC 33.0, RDW 14.7 H, RDW Differential 44.3 H, Plt Count 328, MPV 10.3, Immature Gran % (Auto) 0.300, Neut % (Auto) 83.3 H, Lymph % (Auto) 7.7 L, [place] % (Auto) 8.6, Eos % (Auto) 0.0, Baso % (Auto) 0.1, Absolute Neuts (auto) 14.7 H , Absolute Lymphs (auto) 1.36, Total Counted Not Reportable, Differential Comment SCANNED 03/28/18 04:00: Sodium 139, Potassium 4.0, Chloride 105, Carbon Dioxide 24.0, Anion Gap 10, BUN 16, Creatinine 0.91, Estim Creat Clear Calc 50.38, Est GFR ( MDRD) Af Amer 78, Est GFR (MDRD) Non-Af 65, BUN/Creatinine Ratio 17.5, Glucose 102, Calcium 8.8, Total Bilirubin 0.60, AST 15, ALT 18, Alkaline Phosphatase 34 L, Total Protein 7.2, Albumin 3.0 L, Globulin 4.2, Albumin/Globulin Ratio 0.7 L Current Medications Acetaminophen (Tylenol) 650 mg PO Q6H PRN PRN PRN Reason: Mild Pain (1-3)/Temp > 100.7 F Aspirin (Ecotrin) 81 mg PO DAILY@0800 [facility] Last Admin: 03/28/18 08:07 Dose: 81 mg Atorvastatin Calcium (Lipitor) 40 mg PO QHS [facility] Last Admin: 03/27/18 21:37 Dose: 40 mg Atropine Sulfate () 0.5 mg IV UD PRN PRN Reason: HR <50 bpm Bisacodyl (Dulcolax) 5 mg PO DAILY PRN PRN PRN Reason: Constipation Ergocalciferol (Vitamin D) 50,000 unit PO TU [facility] Last Admin: 03/26/18 13:25 Dose: 50,000 unit Folic Acid (Folic Acid) 1 mg PO DAILY@0800 [facility] Last Admin: 03/28/18 08:07 Dose: 1 mg Hydralazine HCl (Apresoline Iv) 5 mg IV Q6H PRN PRN PRN Reason: BLOOD PRESSURE Sodium Chloride () 1,000 mls @ 0 mls/hr IV .Q0M [facility] PRN Reason: KVO Nitroglycerin/Dextrose 25 mg/ (N/A) 250 mls @ 3 mls/hr IV .[id number] [facility] PRN Reason: 5 MCG/MIN Last Admin: 03/27/18 09:05 Dose: 3 mls/hr Levothyroxine Sodium (Synthroid) 50 mcg PO DAILY@0600 [facility] Last Admin: 03/28/18 05:45 Dose: 50 mcg Lisinopril (Zestril) 10 mg PO BID [facility] Last Admin: 03/28/18 10:03 Dose: 10 mg Lorazepam (Ativan) 1 mg PO Q6H PRN PRN PRN Reason: BACK SPASMS/ANXIETY Last Admin: 03/27/18 16:29 Dose: 1 mg Magnesium Hydroxide (Milk Of Magnesia) 30 ml PO DAILY PRN PRN Reason: Constipation Metoclopramide HCl (Reglan) 5 mg IV Q6 PRN PRN Reason: NAUSEA/VOMITING Metoprolol Tartrate (Lopressor (Beta Jina)) 25 mg PO BID [facility] Last Admin: 03/28/18 10:03 Dose: 25 mg Morphine Sulfate () 1 mg IV Q4H PRN PRN PRN Reason: MOD-SEVERE PAIN (4-10/10) Last Admin: 03/27/18 18:27 Dose: 1 mg Nitroglycerin (Nitrostat) 0.4 mg SUBLINGUAL Q5M PRN PRN Reason: CARDIAC/CHEST PAIN Last Admin: 03/27/18 17:20 Dose: 0.4 mg Ondansetron HCl (Zofran) 4 mg IV Q8H PRN PRN PRN Reason: NAUSEA Last Admin: 03/27/18 09:58 Dose: 4 mg Pantoprazole Sodium (Protonix) 40 mg PO DAILY [facility] Last Admin: 03/28/18 10:03 Dose: 40 mg Psyllium Hydrophilic Mucilloid (Metamucil) 1 packet PO DAILY PRN PRN PRN Reason: CONSTIPATION Sodium Chloride () 5 - 30 ml IV UD PRN PRN Reason: SALINE FLUSH Last Admin: 03/28/18 05:45 Dose: 20 ml Sodium Chloride () 500 ml IV BOLUS PRN PRN Reason: VASO-VAGAL PROTOCOL Ticagrelor (Brilinta) 90 mg PO BID [facility] Last Admin: 03/28/18 10:03 Dose: 90 mg Tramadol HCl (Ultram) 50 mg PO Q8H PRN PRN PRN Reason: PAIN Last Admin: 03/27/18 21:38 Dose: 50 mg Medical Necessity - Tobacco Use Smoking Status: Never smoker Assessment/Plan All Active Problems Chest pain (Acute) 67 year old F with past medical history of multiple sclerosis, hypothyroidism who comes in with complaints of chest pain that happened last night, persistent until this morning. Chest pain was described as substernal, pressure-like, associated with feeling of unwell. 1. Chest pain, atypical, recent stress test has been negative, troponins were negative, status post cardiac artery showed proximal LAD lesion status post stent, on aspirin, Brilinta, statins, beta-jina, SONJA inhibitor 2. Hypertension, better controlled on metoprolol and Lisinopril 3. Hypothyroidism, on replacement 4. DVT PPx- Lovenox SC Code Visit Inpatient E&M: 56897 Subs Hosp L2
--- NOTE | 2018-03-28 10:28 | CASEMGMT ---
JONATHAN CM NOTE: COOK form reviewed w/pt, signed by pt, and copy given to pt. Original placed in chart. Alex BELLE RN CM
--- NOTE | 2018-03-28 11:08 | DCINST_ITS ---
- Discharge Diagnoses Current Active Problems: Current Active and Chronic Problems GERD (gastroesophageal reflux disease) (Chronic) Reason(s) for Visit for Discharge Instructions: Chest pain You will use the following diet at home:: Cardiac Your food should be the consistency of: Regular Your liquids should be the consistency of: Regular/Thin Discharge Activity: Return to Normal Activity Instructions: ED Chest Pain Atypical Unkn Cause Allergies/Adverse Reactions: Allergies No Known Allergies Allergy (Verified 01/15/18 10:53) Medications to take at Discharge Aspirin E.C. [Ecotrin] 81 mg PO DAILY@0800 01/15/18 Ergocalciferol [Vitamin D] 50,000 unit PO TU 01/15/18 Folic Acid 1 mg PO DAILY@0800 01/15/18 Levothyroxine [Synthroid] 50 mcg PO DAILY 01/15/18 Omeprazole 40 mg PO DAILY 01/15/18 traMADol [Ultram] 100 mg PO Q8H PRN PRN 01/15/18 Aspirin E.C. [Ecotrin] 81 mg PO DAILY@0800 #30 tab 03/28/18 Atorvastatin Calcium [Lipitor] 40 mg PO QHS #30 tab 03/28/18 Lisinopril [Zestril] 10 mg PO BID #30 tab 03/28/18 Metoprolol Tartrate [Lopressor (beta azra)] 25 mg PO BID #60 tab 03/28/18 Nitroglycerin [Nitrostat] 0.4 mg SUBLINGUAL Q5M PRN #10 tab 03/28/18 Ticagrelor [Brilinta] 90 mg PO BID #60 tab 03/28/18 The following prescriptions were given: Aspirin E.C. [Ecotrin] 81 mg PO DAILY@0800 #30 tab Atorvastatin Calcium [Lipitor] 40 mg PO QHS #30 tab Nitroglycerin [Nitrostat] 0.4 mg SUBLINGUAL Q5M PRN #10 tab PRN Reason: Cardiac/Chest Pain Lisinopril [Zestril] 10 mg PO BID #30 tab Metoprolol Tartrate [Lopressor (beta azra)] 25 mg PO BID #60 tab Ticagrelor [Brilinta] 90 mg PO BID #60 tab Primary Care Physician: Denzel Greco DO [Primary Care Provider] - Please follow up with your Primary Care Physician in: within 2 weeks Test Results: Test results from this visit will be discussed in further detail at your follow- up appointment, if applicable. Please Follow Up With: Drew Modi MD When: within 2 weeks Proposed Discharge Date: 03/28/18
--- NOTE | 2018-03-28 11:49 | DS.PCM_ITS ---
Discharge Date and Diagnosis Date of Admission: 03/26/18 Date of Discharge: 03/28/18 - Primary Discharge Diagnosis CAD s/p stent Uncontrolled hypertension\ Hyperlipidemia - Secondary Discharge Diagnosis Chronic Problems GERD (gastroesophageal reflux disease) (Chronic) Multiple sclerosis (Chronic) Hypothyroidism (Chronic) Hospital Course and Treatment Imaging Results: Clinical Impression(s) from Imaging Studies Chest X-Ray 03/26/18 07:12 IMPRESSION: Normal x-ray examination of the chest. Electronically Signed: Chad Hammond DO at 7:37 EDT Tel , Service support , Cardiology Operations: None Procedures: Cardiac catheterization Summary of Care Provided: 67 year old F with past medical history of multiple sclerosis, hypothyroidism, recently discharged a month ago with similar complaints of chest pain, status post stress test which was negative admitted with chest pain, substernal, persistent. Patient's EKG was unchanged. Troponins were negative. Cardiology was consulted. Underwent cardiac catheterization which showed proximal LAD lesion. Status post stenting to proximal LAD. Discharged on aspirin, Brilinta , statins, beta-azra, SONJA inhibitor. To follow-up with cardiology in the outpatient and also with cardiac rehab. 2. Hypertension, uncontrolled in the hospital for the most part, improved with metoprolol and lisinopril 3. Hypothyroidism, on replacement Discharge Diet: Low fat/ Low Cholesterol, 2000 mg Sodium Diet Discharge Activity: Return to Normal Activity Home Medications: Medications to take at Discharge Aspirin E.C. [Ecotrin] 81 mg PO DAILY@0800 01/15/18 Ergocalciferol [Vitamin D] 50,000 unit PO TU 01/15/18 Folic Acid 1 mg PO DAILY@0800 01/15/18 Levothyroxine [Synthroid] 50 mcg PO DAILY 01/15/18 Omeprazole 40 mg PO DAILY 01/15/18 traMADol [Ultram] 100 mg PO Q8H PRN PRN 01/15/18 Aspirin E.C. [Ecotrin] 81 mg PO DAILY@0800 #30 tab 03/28/18 Atorvastatin Calcium [Lipitor] 40 mg PO QHS #30 tab 03/28/18 Lisinopril [Zestril] 10 mg PO BID #30 tab 03/28/18 Metoprolol Tartrate [Lopressor (beta azra)] 25 mg PO BID #60 tab 03/28/18 Nitroglycerin [Nitrostat] 0.4 mg SUBLINGUAL Q5M PRN #10 tab 03/28/18 Ticagrelor [Brilinta] 90 mg PO BID #60 tab 03/28/18 Following Prescrptions Were Given to Patient: Aspirin E.C. [Ecotrin] 81 mg PO DAILY@0800 #30 tab Atorvastatin Calcium [Lipitor] 40 mg PO QHS #30 tab Nitroglycerin [Nitrostat] 0.4 mg SUBLINGUAL Q5M PRN #10 tab PRN Reason: Cardiac/Chest Pain Lisinopril [Zestril] 10 mg PO BID #30 tab Metoprolol Tartrate [Lopressor (beta azra)] 25 mg PO BID #60 tab Ticagrelor [Brilinta] 90 mg PO BID #60 tab Primary Care Physician: Denzel Greco DO [Primary Care Provider] - Please follow up with your Primary Care Physician in: within 2 weeks Please Follow Up With: Drew Modi MD When: within 2 weeks Patient Instructions: ED Chest Pain Atypical Unkn Cause Disposition: Home Minutes spent on discharge:: 35 Patient Condition:: Stable Medical Necessity - Tobacco Use Smoking Status: Never smoker Meaningful Use Info Meaningful Use Diagnoses (Choose all that apply): None applicable Code Visit Inpatient E&M: 46254 Disch Hosp
--- NOTE | 2018-03-28 12:52 | CRPHASE1 ---
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:: Drew Modi Risk Factors/Lifestyle Smoking Status: Never smoker Hx Hypertension: Yes - new Hx Diabetes Mellitus Type 1: No Hx Diabetes Mellitus Type 2: No Hx Dyslipidemia: Yes Hx Obesity: Yes Height: 1.63 m Weight:: 73.936 kg BMI: 27.9 Post-Menopausal: Yes Stress: Recent ETOH: No Caffeine: Yes Family History: Heart Disease Laboratory Values: Cardiac Rehab Phase I Labs Triglycerides 106 mg/dL (-199) 03/27/18 05:05 Cholesterol 199 mg/dL (200) 03/27/18 05:05 LDL Cholesterol 123 mg/dL (0-130) 03/27/18 05:05 HDL Cholesterol 55 mg/dL (40-) 03/27/18 05:05 Phase I Education Given On:: [place] Issues Affecting Care:: None Medical/Surgical History [place]:: Yes CAD:: Yes COPD:: No Asthma:: No Diabetes:: No Diabetes Type I:: No Diabetes Type II:: No Hypertension:: Yes Dyslipidemia:: Yes PE:: Yes - past Arthritis:: Yes GERD:: Yes Cancer:: No Renal:: No Thyroid:: Yes Depression:: No Anxiety:: No CABG: No PTCA:: Yes Discharge/Home/Social Eval Discharge Disposition: Home Marital Status:
--- NOTE | 2018-03-28 12:57 | CRPHASE1_ITS ---
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:: Drew Modi Risk Factors/Lifestyle Smoking Status: Never smoker Hx Hypertension: Yes - new Hx Diabetes Mellitus Type 1: No Hx Diabetes Mellitus Type 2: No Hx Dyslipidemia: Yes Hx Obesity: Yes Height: 1.63 m Weight:: 73.936 kg BMI: 27.9 Post-Menopausal: Yes Stress: Recent ETOH: No Caffeine: Yes Family History: Heart Disease Laboratory Values: Cardiac Rehab Phase I Labs Triglycerides 106 mg/dL (-199) 03/27/18 05:05 Cholesterol 199 mg/dL (200) 03/27/18 05:05 LDL Cholesterol 123 mg/dL (0-130) 03/27/18 05:05 HDL Cholesterol 55 mg/dL (40-) 03/27/18 05:05 Phase I Education Given On:: [place] Issues Affecting Care:: None Medical/Surgical History [place]:: Yes CAD:: Yes COPD:: No Asthma:: No Diabetes:: No Diabetes Type I:: No Diabetes Type II:: No Hypertension:: Yes Dyslipidemia:: Yes PE:: Yes - past Arthritis:: Yes GERD:: Yes Cancer:: No Renal:: No Thyroid:: Yes Depression:: No Anxiety:: No CABG: No PTCA:: Yes Discharge/Home/Social Eval Discharge Disposition: Home Marital Status:
--- NOTE | 2018-03-28 12:59 | CRPH1.INST_ITS ---
General Education CAD and cardiac anatomy and function:: Not instructed Explanation of diagnoses and procedures:: Not instructed Sign/Symptoms of NE:: Needs reinforcement, Not instructed Antiplatelet therapy: Needs reinforcement Proper use of NTG-SL: Not instructed Emergency procedures and activation of EMS: Needs reinforcement, Not instructed Compliance of all prescribed medications: Needs reinforcement Smoking Patient Nicotine/Smoking Risk Factors Are:: Never smoked Dyslipidemia Dyslipidemia Response Code:: Not instructed Overweight/Obesity Patient Overweight/Obesity Risk Factors Are:: BMI Normal [24-29 & > 65 years old ] Overweight/Obesity:: Not instructed Hypertension Hypertension:: Needs reinforcement - pt states diag of HTN is new Heart Disease Heart Disease Response Code:: Needs reinforcement Diabetes Patient Diabetes Risk Factors Are:: No documented hx of diabetes Metabolic Syndrome Metabolic Syndrome Response Code:: Needs reinforcement, Not instructed Sedentary Patient Sedentary Risk Factors Are:: Lack of regular exercise Sedentary Response Code:: Needs reinforcement Stress Recommendations Include:: Identification of stressors, and assessment of coping skills, Stress management techniques Stress Response Code:: Needs reinforcement
== END 2018-03-28 13:10 | disposition home or self-care (01) ==
LOC: ED 07:49 → PCU 11:33 → ICU 03-28 07:32
PROVIDERS: Internal Medicine Cardiovascular Disease; Admitting Provider Internal Medicine; Emergency Provider Emergency Medicine; Family Provider Preventive Medicine Occupational Medicine; PCP Preventive Medicine Occupational Medicine; Visit Provider Internal Medicine
DX: I25.10 Atherosclerotic heart disease of native coronary artery without angina pectoris (principal); E03.9 Hypothyroidism, unspecified; G35 Multiple sclerosis; K21.9 Gastro-esophageal reflux disease without esophagitis; Z79.899 Other long term (current) drug therapy; Z79.82 Long term (current) use of aspirin; Z86.711 Personal history of pulmonary embolism; Z86.718 Personal history of other venous thrombosis and embolism; E78.5 Hyperlipidemia, unspecified; I10 Essential (primary) hypertension
CPT/HCPCS: 36415; 71045; 80048; 80053; 80061; 81001; 84484; 85025; 85347; 85379; 85610; 85730; 87641; 92928; 93005; 93458; 93571; 96365; 96366; 96375; 96376; 97162; 97165; 97802; 99152; 99153; 99218; 99283; J0153; J7030; A4216; C1725; C1769; C1874; C1887; C1894; C9600; G0378; J2405; Q9967

== ENCOUNTER → 2018-04-15 12:52 | Outpatient (CLI) | payer MEDICARE, SELFPAY ==
--- NOTE | 2018-04-15 13:01 | PCM.CR.HP2 ---
CR - History & Physical - General Arrival date:: 04/15/18 Arrival time:: 13:01 Date of Referral:: 04/15/18 Date of CR Evaluation:: 04/15/18 Referring Physician: Dr. Luis Modi Primary Diagnosis: PCI - History of Present Cardiac Event Onset Date: Enter Onset Date of cardiac illnesses in Comment field below Current stable Angina Pectoris:: No Acute Myocardial Infarction within 12 months:: No Coronary Artery Bypass Graft:: No Heart valve replacement or repair:: No PTCA or coronary stenting:: Yes - 03/27/18 Heart or Heart-Lung Transplant:: No Heart Failure EF <35%:: No Type of Symptoms:: Chest tightness, pain and nausea. Interventions with present event:: stress test 02/18, heart cath Were there any complications?: no - Medications Home Medications: Ambulatory Orders Medication Instructions Recorded Aspirin E.C. [Ecotrin] 81 mg PO DAILY@0800 01/15/18 Ergocalciferol [Vitamin D] 50,000 unit PO TU 01/15/18 Folic Acid 1 mg PO DAILY@0800 01/15/18 Levothyroxine [Synthroid] 50 mcg PO DAILY 01/15/18 Omeprazole 40 mg PO DAILY 01/15/18 traMADol [Ultram] 100 mg PO Q8H PRN PRN 01/15/18 Aspirin E.C. [Ecotrin] 81 mg PO DAILY@0800 #30 tab 03/28/18 Atorvastatin Calcium [Lipitor] 40 mg PO QHS #30 tab 03/28/18 Lisinopril [Zestril] 10 mg PO BID #30 tab 03/28/18 Metoprolol Tartrate [Lopressor 25 mg PO BID #60 tab 03/28/18 (beta azra)] Nitroglycerin [Nitrostat] 0.4 mg SUBLINGUAL Q5M PRN #10 tab 03/28/18 Ticagrelor [Brilinta] 90 mg PO BID #60 tab 03/28/18 Levothyroxine [Synthroid] 25 mcg PO UD 04/15/18 - Allergies Allergies/Adverse Reactions: Allergies No Known Allergies Allergy (Verified 01/15/18 10:53) - Sleep Disorder Evaluation Hx of Sleep Apnea: No Do you snore loudly (louder than talking or can be heard through closed doors)?: Yes Do you often feel tired/ fatigued/ sleepy during daytime?: Yes Has anyone observed you stop breathing during sleep?: No History of Hypertension (for STOP score): Yes STOP Results: Positive Advanced Directives - Advanced Directives Power of Catalogue Clerk: No Living Will: No Advance Directives Information Provided: Yes Advance Directives on File: No DNR Order?:: No Past Medical History - Past Medical Illness Medical History: Past Medical History (Last Updated 03/29/18 @ 16:44 by Meche Carrion) Atherosclerotic heart disease of [place] coronary artery without angina pectoris (Chronic) I25.10 FFR guided SAHARA 92.5 X 20mm Promus Synergy) of proximal LAD 03/27/[address] Villagomez, [facility] - Past Surgical History Surgical History: Past Surgical History (Last Updated 03/29/18 @ 16:44 by Meche Carrion) Stented coronary artery (Chronic) Z95.5 FFR guided SAHARA 92.5 X 20mm Promus Synergy) of proximal LAD 03/27/[address] Villagomez [facility] Surgical History: - - elbow surgery Social History - Smoking History Smoking Status: Never smoker Hx Smoking Exposure: No - Alcohol Use Alcohol Usage: No - Substance Abuse Hx Substance Use: No - Occupation Occupation (List type of work in comments):: Retired - Hobbies, Recreation, Social Activities Hobbies: Reading, Watch TV, Other - puzzles Recreational Activities: I am able to engage in all my recreational activities Social Environment - Status Marital Status: - Current Living Arrangements Living Environment:: Spouse - Children How many children do you have?: 0 - Safety Do you feel safe in your surroundings?: Yes - Assistance Do you need any assistance at home?: no Review of Systems - Review of Systems Hints: Right click = Denies (Slash). Left click = Reports ([place]) Review of Present Symptoms: Reports: Shortness of Breath at Rest - slight. aware pt feels SOB on Brilinta. She states they would like her to stay on it for 1 month then reasses., Shortness of Breath with Exertion, Fatigue, Appetite - Normal, Appetite - Special Diet, Sleep - Normal. Denies: PVD, Operative Discomfort, Angina, Wound Healing, Dizziness/Lightheadedness, Heart Arrhythmia/Irregularities, Sexual Changes - Pain Is Patient Pain Free?: No Pain Location: lower extremity - MS pain, takes Ultram every night Pain Level: 10 Risk Factor Assessment - Pulse Pulse Rate: 56 Pulse Rhythm: Regular - Hypertension Blood Pressure Sitting - Right Arm: 120/70 Blood Pressure Sitting - Left Arm: 112/66 - Diabetes Nutrition Referral for Diabetes: No - Obesity Height: 1.63 m Weight:: 73.936 kg Weight in Pounds: 163.0 lbs Weight Source: Estimated by Patient Body Mass Index (BMI): 27.9 Desired Body Weight: 140 Realistic Weight Goal (Loss of 1-2 lbs/week): 145 Nutritional Referral for Obesity: Yes - Physical Inactivity Physical Inactivity: None - Risk Stratification Risk Guidelines: Lowest Risk: Risk Factor for Smoking, Risk Factor for Diabetes, Risk Factor for Hypertension, Risk Factor for Depression, Moderate Risk: Risk Factor for Dyslipidemia, Risk Factor for Obesity, Risk Factor for Sedentary Lifestyle - For Smoking Smoking Risk Guidelines: Smoking Low Risk: None or quit greater than 6 months ago. Smoking Moderate Risk: Smoker or quit 6 months or less ago. Smoking High Risk: Smoker - For Dyslipidemia Dyslipidemia Risk Guidelines: Low Risk: Moderate Risk: High Risk: 15-25% fat 25.1-29% fat >/= 30% fat. <7% sat fat 7-9% sat fat >9% sat fat. <150 mg chol 150-299 mg chol >/= 300 mg chol. LDL <100 LDL 100-129 LDL >/= 130. Chol/HDL ratio <5.0 Chol/HDL ratio 5.0-6.0 Chol/HDL ratio >6.0. Triglycerides <100 Triglycerides 100-149 Triglycerides >/= 150 - For Diabetes Mellitus Diabetes Risk Guidelines: Diabetes Low Risk: HgA1c <6.5% and/or FBG <120. Diabetes Moderate Risk: HgA1c 6.6-7.9% and/or FBG 120-180. Diabetes High Risk: HgA1c >/= 8% and/or FBG >180 - For Obesity/Overweight Obesity/Overweight Risk Guidelines: Obesity Low Risk: BMI <25.0. Obesity Moderate Risk: BMI 25-29.9. Obesity High Risk: BMI >/= 30.0 - For Hypertension Hypertension Risk Guidelines: Hypertension Low Risk: Systolic <120 and Diastolic <80. Hypertension Moderate Risk: Systolic 120-139 and Diastolic 80-89. Hypertension High Risk: Systolic >/= 140 and Diastolic >/= 90 - For Sedentary Lifestyle Sedentary Lifestyle Risk Guidelines: Sedentary Lifestyle Low Risk: >/= 1,500 kcal/week. Sedentary Lifestyle Moderate Risk: 700-1,499 kcal/week. Sedentary Lifestyle High Risk: < 700 kcal/week - For Depression Depression Risk Guidelines: Depression Low Risk: Not clinically depressed. Depression Moderate Risk: Mildly depressed. Depression High Risk: Clinically depressed Motivation - Motivation to Participate On a scale of 1 to 10, how prepared are you to commit to attending program?: 10
--- NOTE | 2018-04-15 13:05 | CR.ITP_ITS ---
General Information - General Information Admitting Diagnosis: PCI - Education/Goals Barriers to Learning: None Individual Counseling: Initial Assessment: Abnormal Cholesterol Levels, High Blood Pressure, Overweight/Obesity, Hypertension, Sedentary Lifestyle Cardiac Rehabilitation Goals: 1. Maintain the individual as the primary focus of care. 2. To improve the patient's quality of life. 3. Identification of cardiac risk factors and provide cardiac risk factor management. 4. Enhance the psychosocial status of the patient. 5. Reconditioning enough to allow the patient to resume customary activities. 6. Control symptoms of cardiac disease Scale for measuring improvement of personal goals: Enter appropriate number in Comments. 2 = Unchanged. 3 = Slightly Better. 4 = Moderate Improvement. 5 = Met my Goal Personal Goals: Initial Assessment: Improve energy level, Participate in home exercise program, Improve knowledge of cardiac disease, Improve muscle strength and endurance, Improve diet and eating habits (eat healthier), Control risk factors (learn risk factor modification) Nutrition - Initial Assessment - Program Goals Nutrition Program Goals: LDL <70. Total Cholesterol <200. HDL >45. Triglycerides <150. HgbA1C <7%. BMI <25 - Visit Date of Assessment:: 04/15/18 - Stages of Change Stages of Change:: Action - Diabetes Diabetes:: No - Weight Management Height: 1.63 m Weight:: 73.936 kg Weight Goal (kg):: 65.771 kg Body Fat %:: 28 - Intervention Referral to dietitian:: Yes - pt request Referral to Diabetic Clinic:: No Will attend diet classes:: Yes - Education Gave educational materials for:: Healthy eating Tobacco - Initial Assessment - Program Goals Tobacco Program Goals: Complete smoking cessation. Attend education classes. Improve Knowledge Test score - Stage of Change Stages of Change:: Maintenance - Learning Barriers Learning Barriers: Ready to Learn Total Score:: 17 - Family Support Do you have family support?: Yes - Tobacco Use Tobacco Use: Non-smoker - Intervention Smoking Cessation Referral:: No Individual Education/Counseling:: No Education Schedule Given:: Yes - Education Gave educational material for:: Coronary artery disease, Risk factors, Sexuality , Medical compliance, Cardiac A&P, Angina signs & symptoms Psychosocial - Initial Assess - Target Goals Target Goals: Assess presence or absence of depression. Using a valid screening tool, maximizes coping skills. Positive support system - Stages of Change Stages of Change:: Action - Psychosocial Test Tool Used:: HANDS Depression Questionnaire Self-reported stress:: no Tests Completed: Mood Scale Test Total Mood Screening Score:: 5 Self-Efficacy Score:: 7 - Intervention PS - Interventions: Yes Attend Stress Management Classes, Yes Uses Stress Management Skills, No Referral to Mental Health, No Referral to [facility] Case Management, No Referral to Physician - Education Gave educational materials for:: Coping techniques, Signs & symptoms of depression, Stress management, Relaxation techniques - Patient/Program Goal Preventative Medication(s):: Aspirin, SONJA inhibitor, Clopidogrel, Beta azra, Statin/lipid - Assistive Devices Assistive Devices:: Cane - 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 Little interest or pleasure in doing things: Several days 2. Feeling down, depressed, or hopeless: Not at all 3. Trouble falling or staying asleep, or sleeping too much: Several days 4. Feeling tired or having little energy: More than half the days 5. Poor appetite or overeating: Several days 6. Feeling bad about yourself -- or that you are a failure or have let yourself or your family down: Not at all 7. Trouble concentrating on things, such as reading the newspaper or watching television: Not at all 8. Moving or speaking so slowly that other people could have noticed. Or the opposite - being so fidgety or restless that you have been moving around a lot more than usual: Not at all 9. Thoughts that you would be better off , or of hurting yourself in some way: Not at all How difficult have these problems made it for you to do your work, take care of things at home, or get along with other people?: Somewhat difficult Total Score: 5 DICK-Q SV Test - Statements CAD is a disease of the arteries in the heart: False Examples of risk factors for heart disease: True Angina is chest pain or discomfort: True The benefits of resistance training include: True Eating more meat and dairy products: False Anti-platelet medications such as aspirin are important: True The only effective way to manage stress: False An exercise warm-up slowly increases heart rate: True Prepared, processed foods usually have high sodium: True Depression is common after a heart attack: I Don't Know The statin medications lower cholesterol: True To control blood pressure, lower the amount of sodium: True If someone gets chest discomfort during walking: False Transfats are partially hydrogenated vegetable oils: True Sleep apnea that is not treated increases the risk: True To control cholesterol, one should become a vegetarian: False Someone knows if he/she is exercising at the right level: I Don't Know Diabetes cannot be prevented with exercise & health eating: False Stress is a large risk for heart attack: True A diet that can help lower blood pressure is rich in: True - Total Score Total Correct Responses: 17 Self-Efficacy Initial Assessment We would like to know how confident you are in doing certain activities. Please select your confidence level for:: Select your confidence level for the following using the scale 1-10 where 1 is not at all confident and 10 is totally confident. Your score is the average of all 6 responses. Fatigue: How confident are you that you can keep the fatigue caused by your disease from interfering with the things you want to do? Select Number: 5 Physical Discomfort or Pain: How confident are you that you can keep the physical discomfort or pain of your disease from interfering with the things you want to do? Select Number: 5 Emotional Distress: How confident are you that you can keep the emotional distress caused by your disease from interfering with the things you want to do? Select Number: 8 Other Symptoms or Health Problems: How confident are you that you can keep other symptoms or health problems from interfering with the things you want to do? Select Number: 8 Different Tasks and Activities: How confident are you that you can do the different tasks and activities needed to manage your health condition so as to reduce your need to see a doctor? Select Number: 8 Medication: How confident are you that you can do things other than just taking medication to reduce how much your illness affects your everyday life? Select Number: 10 Total Score:: 7 Nutrition Survey - Nutrition Survey Instructions Scoring Instructions: Scoring is as follows: Yes = 1 points. No = 0 point. Patient score that is >/=12 is considered to be at potential nutritional risk and could benefit from a referral to a registered dietitian. - Nutrition Survey Initial Have you lost >10 lbs over the past 2 months without trying?: No Are you following a special diet at home for diabetes, low fat, or low salt?: No Are you interested in meeting with a dietitian for help understanding your diet? : Yes Do you eat less than 3 meals a day?: Yes Do you eat fatty meats (flor, sausage, ribs, etc), fried foods, desserts, large amounts of salad dressings, margarine, butter, or cheese most days?: No Do you have food allergies? [Enter types in comment field]: No Do you eat in restaurants more than 3 times a week?: No Do you season food with salt, seasoning salt, or garlic salt?: Yes Do you used canned, boxed, frozen meals, or soups, seasoning packets?: No Total Score:: 3
--- NOTE | 2018-04-15 13:10 | CR.HP_ITS ---
CR - History & Physical - General Arrival date:: 04/15/18 Arrival time:: 13:01 Date of Referral:: 04/15/18 Date of CR Evaluation:: 04/15/18 Referring Physician: Dr. Luis Modi Primary Diagnosis: PCI - History of Present Cardiac Event Onset Date: Enter Onset Date of cardiac illnesses in Comment field below Current stable Angina Pectoris:: No Acute Myocardial Infarction within 12 months:: No Coronary Artery Bypass Graft:: No Heart valve replacement or repair:: No PTCA or coronary stenting:: Yes - 03/27/18 Heart or Heart-Lung Transplant:: No Heart Failure EF <35%:: No Type of Symptoms:: Chest tightness, pain and nausea. Interventions with present event:: stress test 02/18, heart cath Were there any complications?: no - Medications Home Medications: Ambulatory Orders Medication Instructions Recorded Aspirin E.C. [Ecotrin] 81 mg PO DAILY@0800 01/15/18 Ergocalciferol [Vitamin D] 50,000 unit PO TU 01/15/18 Folic Acid 1 mg PO DAILY@0800 01/15/18 Levothyroxine [Synthroid] 50 mcg PO DAILY 01/15/18 Omeprazole 40 mg PO DAILY 01/15/18 traMADol [Ultram] 100 mg PO Q8H PRN PRN 01/15/18 Aspirin E.C. [Ecotrin] 81 mg PO DAILY@0800 #30 tab 03/28/18 Atorvastatin Calcium [Lipitor] 40 mg PO QHS #30 tab 03/28/18 Lisinopril [Zestril] 10 mg PO BID #30 tab 03/28/18 Metoprolol Tartrate [Lopressor 25 mg PO BID #60 tab 03/28/18 (beta azra)] Nitroglycerin [Nitrostat] 0.4 mg SUBLINGUAL Q5M PRN #10 tab 03/28/18 Ticagrelor [Brilinta] 90 mg PO BID #60 tab 03/28/18 Levothyroxine [Synthroid] 25 mcg PO UD 04/15/18 - Allergies Allergies/Adverse Reactions: Allergies No Known Allergies Allergy (Verified 01/15/18 10:53) - Sleep Disorder Evaluation Hx of Sleep Apnea: No Do you snore loudly (louder than talking or can be heard through closed doors)? 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 Villagomez, [facility] - Past Surgical History Surgical History: Past Surgical History (Last Updated 03/29/18 @ 16:44 by Meche Carrion) Stented coronary artery (Chronic) Z95.5 FFR guided SAHARA 92.5 X 20mm Promus Synergy) of proximal LAD 03/27/[address] Villagomez [facility] Surgical History: - - elbow surgery Social History - Smoking History Smoking Status: Never smoker Hx Smoking Exposure: No - Alcohol Use Alcohol Usage: No - Substance Abuse Hx Substance Use: No - Occupation Occupation (List type of work in comments):: Retired - Hobbies, Recreation, Social Activities Hobbies: Reading, Watch TV, Other - puzzles Recreational Activities: I am able to engage in all my recreational activities Social Environment - Status Marital Status: - Current Living Arrangements Living Environment:: Spouse - Children How many children do you have?: 0 - Safety Do you feel safe in your surroundings?: Yes - Assistance Do you need any assistance at home?: no Review of Systems - Review of Systems Hints: Right click = Denies ([place]ash). Left click = Reports ([place]) Review of Present Symptoms: Reports: Shortness of Breath at Rest - slight. aware pt feels SOB on Brilinta. She states they would like her to stay on it for 1 month then reasses., Shortness of Breath with Exertion, Fatigue, Appetite - Normal, Appetite - Special Diet, Sleep - Normal. Denies: PVD, Operative Discomfort, Angina, Wound Healing, Dizziness/Lightheadedness, Heart Arrhythmia/ Irregularities, Sexual Changes - Pain Is Patient Pain Free?: No Pain Location: lower extremity - MS pain, takes Ultram every night Pain Level: 10 Risk Factor Assessment - Pulse Pulse Rate: 56 Pulse Rhythm: Regular - Hypertension Blood Pressure Sitting - Right Arm: 120/70 Blood Pressure Sitting - Left Arm: 112/66 - Diabetes Nutrition Referral for Diabetes: No - Obesity Height: 1.63 m Weight:: 73.936 kg Weight in Pounds: 163.0 lbs Weight Source: Estimated by Patient Body Mass Index (BMI): 27.9 Desired Body Weight: 140 Realistic Weight Goal (Loss of 1-2 lbs/week): 145 Nutritional Referral for Obesity: Yes - Physical Inactivity Physical Inactivity: None - Risk Stratification Risk Guidelines: Lowest Risk: Risk Factor for Smoking, Risk Factor for Diabetes , Risk Factor for Hypertension, Risk Factor for Depression, Moderate Risk: Risk Factor for Dyslipidemia, Risk Factor for Obesity, Risk Factor for Sedentary Lifestyle - For Smoking Smoking Risk Guidelines: Smoking Low Risk: None or quit greater than 6 months ago. Smoking Moderate Risk: Smoker or quit 6 months or less ago. Smoking High Risk: Smoker - For Dyslipidemia Dyslipidemia Risk Guidelines: Low Risk: Moderate Risk: High Risk: 15-25% fat 25.1-29% fat >/= 30% fat. <7% sat fat 7-9% sat fat >9% sat fat. <150 mg chol 150-299 mg chol >/= 300 mg chol. LDL <100 LDL 100-129 LDL >/= 130. Chol/HDL ratio <5.0 Chol/HDL ratio 5.0-6.0 Chol/HDL ratio >6.0. Triglycerides <100 Triglycerides 100-149 Triglycerides >/= 150 - For Diabetes Mellitus Diabetes Risk Guidelines: Diabetes Low Risk: HgA1c <6.5% and/or FBG <120. Diabetes Moderate Risk: HgA1c 6.6-7.9% and/or FBG 120-180. Diabetes High Risk: HgA1c >/= 8% and/or FBG >180 - For Obesity/Overweight Obesity/Overweight Risk Guidelines: Obesity Low Risk: BMI <25.0. Obesity Moderate Risk: BMI 25-29.9. Obesity High Risk: BMI >/= 30.0 - For Hypertension Hypertension Risk Guidelines: Hypertension Low Risk: Systolic <120 and Diastolic <80. Hypertension Moderate Risk: Systolic 120-139 and Diastolic 80-89. Hypertension High Risk: Systolic >/= 140 and Diastolic >/= 90 - For Sedentary Lifestyle Sedentary Lifestyle Risk Guidelines: Sedentary Lifestyle Low Risk: >/= 1 ,500 kcal/week. Sedentary Lifestyle Moderate Risk: 700-1,499 kcal/week. Sedentary Lifestyle High Risk: < 700 kcal/week - For Depression Depression Risk Guidelines: Depression Low Risk: Not clinically depressed. Depression Moderate Risk: Mildly depressed. Depression High Risk: Clinically depressed Motivation - Motivation to Participate On a scale of 1 to 10, how prepared are you to commit to attending program?: 10
[2018-04-15 14:13] VITALS: BP 112/66; BP 120/70; PULSE 56; BMI 27.9
== END ==
PROVIDERS: Family Provider Preventive Medicine Occupational Medicine; PCP Preventive Medicine Occupational Medicine; Visit Provider Internal Medicine Cardiovascular Disease
DX: Z95.5 Presence of coronary angioplasty implant and graft (principal)

== ENCOUNTER 2018-05-01 11:30 | Outpatient (RCR) | payer MEDICARE, SELFPAY ==
--- NOTE | 2018-04-26 10:34 | PCM.CR.ITP ---
General Information - General Information Admitting Diagnosis: PCI with stent - Education/Goals Cardiac Rehabilitation Goals: 1. Maintain the individual as the primary focus of care. 2. To improve the patient's quality of life. 3. Identification of cardiac risk factors and provide cardiac risk factor management. 4. Enhance the psychosocial status of the patient. 5. Reconditioning enough to allow the patient to resume customary activities. 6. Control symptoms of cardiac disease Scale for measuring improvement of personal goals: Enter appropriate number in Comments. 2 = Unchanged. 3 = Slightly Better. 4 = Moderate Improvement. 5 = Met my Goal Exercise - 30-day Assessment - Visit Date of Eval: 04/26/18 Session #:: 3 - Stages of Change Stages of Change:: Action - Exercise Prescription Mode:: Treadmill, Airdyne, NuStep Frequency (x/week): 3 Duration:: 30 METs - Progression: 0.5-1 MET as tolerated: 2 Target Heart Rate:: 113-120 Max HR 93 - Hypertension Resting Blood Pressure:: 126/66 Peak Exercise Blood Pressure:: 126/66 - Intervention Home Exercise/Activity Goal:: Sitting Time <3 hrs/day - Education Goals:: Warm-up, RPE FRANCISCO Scale, S/S, Safe Exercise, Self-Monitoring - Exercise Program Goals Exercise Program Goals: Aerobic Activity >30 min, B/P <130/80 Nutrition - 30-Day Assessment - Program Goals Nutrition Program Goals: LDL <70. Total Cholesterol <200. HDL >45. Triglycerides <150. HgbA1C <7%. BMI <25 - Visit Date of Eval: 04/26/18 - Stages of Change Stages of Change:: Action - Diabetes Diabetes:: No - Weight Management Weight:: 73.482 kg - Intervention Referral to dietitian:: No Referral to Diabetic Clinic:: No Will attend diet classes:: Yes - Education Attended class for:: Signs & symptoms of hypoglycemia, Signs & symptoms of hyperglycemia, Relate diabetes to coronary artery disease, Healthy eating Tobacco - Initial Assessment - Program Goals Tobacco Program Goals: Complete smoking cessation. Attend education classes. Improve Knowledge Test score - Learning Barriers Learning Barriers: Ready to Learn Tobacco - 30-Day Assessment - Program Goals Tobacco Program Goals: Complete smoking cessation. Attend education classes. Improve Knowledge Test score - Stage of Change Stages of Change:: Action - Learning Barriers Learning Barriers: Participates in education - Family Support Do you have family support?: Yes - Tobacco Use Tobacco Use: Non-smoker Do you use smokeless tobacco?: No - Intervention Smoking Cessation Referral:: No Individual Education/Counseling:: No Education Schedule Given:: Yes - Education Attended class for:: Tobacco triggers, Coronary artery disease, Risk factors, Sexuality, Medical compliance, Cardiac A&P, Angina signs & symptoms Psychosocial - Initial Assess - Target Goals Target Goals: Assess presence or absence of depression. Using a valid screening tool, maximizes coping skills. Positive support system - Psychosocial Test Tool Used:: HANDS Depression Questionnaire - Assistive Devices Fall Risk Assessed:: Yes Psychosocial - 30-Day Assess - Target Goals Target Goals: Assess presence or absence of depression. Using a valid screening tool, maximizes coping skills. Positive support system - Stages of Change Stages of Change:: Action - Psychosocial Test Tool Used:: HANDS Depression Questionnaire - Intervention PS - Interventions: Yes Attend Stress Management Classes, Yes Uses Stress Management Skills, No Referral to Mental Health, No Referral to [facility] Case Management, No Referral to Physician - Education Attended classes for:: Coping techniques, Signs & symptoms of depression, Stress management, Relaxation techniques - Assistive Devices Fall Risk Assessed:: Yes Patient Health Questionnaire 30-Day Re-eval Assessment 1. Little interest or pleasure in doing things: Several days 2. Feeling down, depressed, or hopeless: Not at all 3. Trouble falling or staying asleep, or sleeping too much: Several days 4. Feeling tired or having little energy: More than half the days 5. Poor appetite or overeating: Several days 6. Feeling bad about yourself -- or that you are a failure or have let yourself or your family down: Not at all 7. Trouble concentrating on things, such as reading the newspaper or watching television: Not at all 8. Moving or speaking so slowly that other people could have noticed. Or the opposite - being so fidgety or restless that you have been moving around a lot more than usual: Not at all 9. Thoughts that you would be better off , or of hurting yourself in some way: Not at all How difficult have these problems made it for you to do your work, take care of things at home, or get along with other people?: Somewhat difficult Total Score: 5 Self-Efficacy 30-Day Re-eval Assessment We would like to know how confident you are in doing certain activities. Please select your confidence level for:: Select your confidence level for the following using the scale 1-10 where 1 is not at all confident and 10 is totally confident. Your score is the average of all 6 responses. Fatigue: How confident are you that you can keep the fatigue caused by your disease from interfering with the things you want to do? Select Number: 5 Physical Discomfort or Pain: How confident are you that you can keep the physical discomfort or pain of your disease from interfering with the things you want to do? Select Number: 5 Emotional Distress: How confident are you that you can keep the emotional distress caused by your disease from interfering with the things you want to do? Select Number: 8 Other Symptoms or Health Problems: How confident are you that you can keep other symptoms or health problems from interfering with the things you want to do? Select Number: 8 Different Tasks and Activities: How confident are you that you can do the different tasks and activities needed to manage your health condition so as to reduce your need to see a doctor? Select Number: 8 Medication: How confident are you that you can do things other than just taking medication to reduce how much your illness affects your everyday life? Select Number: 10 Total Score:: 7
[2018-04-26 10:39] VITALS: BP 126/66
== END 2018-05-03 23:59 ==
LOC: CR 11:30
PROVIDERS: Family Provider Preventive Medicine Occupational Medicine; PCP Preventive Medicine Occupational Medicine; Visit Provider Internal Medicine Cardiovascular Disease
DX: I25.10 Atherosclerotic heart disease of native coronary artery without angina pectoris (principal); Z95.5 Presence of coronary angioplasty implant and graft
CPT/HCPCS: 93798

== ENCOUNTER 2018-05-24 11:30 | Outpatient (RCR) | payer MEDICARE, SELFPAY ==
[2018-03-28 12:56] VITALS: BMI 27.9
[2018-05-04 01:45] VITALS: BP 126/66
--- NOTE | 2018-05-29 10:36 | PCM.CR.ITP ---
General Information - General Information Admitting Diagnosis: PCI with stent - Education/Goals Cardiac Rehabilitation Goals: 1. Maintain the individual as the primary focus of care. 2. To improve the patient's quality of life. 3. Identification of cardiac risk factors and provide cardiac risk factor management. 4. Enhance the psychosocial status of the patient. 5. Reconditioning enough to allow the patient to resume customary activities. 6. Control symptoms of cardiac disease Scale for measuring improvement of personal goals: Enter appropriate number in Comments. 2 = Unchanged. 3 = Slightly Better. 4 = Moderate Improvement. 5 = Met my Goal Exercise - 60-Day Assessment - Visit Date of Eval: 05/29/18 Session #:: 14 - Stages of Change Stages of Change:: Action - Exercise Prescription Mode:: Treadmill, Rower, Airdyne Frequency (x/week): 3 Duration:: 30 METs: 4.5 Target Heart Rate:: 113-120 Max HR 114 - Hypertension Resting Blood Pressure:: 92/64 Peak Exercise Blood Pressure:: 122/70 - Intervention Home Exercise/Activity Goal:: Sitting Time <3 hrs/day - Education Goals:: Warm-up, RPE FRANCISCO Scale, S/S, Safe Exercise, Self-Monitoring - Exercise Program Goals Exercise Program Goals: Aerobic Activity >30 min, B/P <130/80 Nutrition - 60-Day Assessment - Program Goals Nutrition Program Goals: LDL <70. Total Cholesterol <200. HDL >45. Triglycerides <150. HgbA1C <7%. BMI <25 - Visit Date of Eval: 05/29/18 - Stages of Change Stages of Change:: Action - Diabetes Diabetes:: No - Weight Management Weight:: 74.389 kg - Intervention Referral to dietitian:: No Referral to Diabetic Clinic:: No Will attend diet classes:: Yes - Education Attended class for:: Signs & symptoms of hypoglycemia, Signs & symptoms of hyperglycemia, Relate diabetes to coronary artery disease, Healthy eating Tobacco - Initial Assessment - Program Goals Tobacco Program Goals: Complete smoking cessation. Attend education classes. Improve Knowledge Test score - Learning Barriers Learning Barriers: Ready to Learn Tobacco - 60-Day Assessment - Program Goals Tobacco Program Goals: Complete smoking cessation. Attend education classes. Improve Knowledge Test score - Stage of Change Stages of Change:: Action - Learning Barriers Learning Barriers: Participates in education - Family Support Do you have family support?: Yes - Tobacco Use Tobacco Use: Non-smoker Do you use smokeless tobacco?: No - Intervention Smoking Cessation Referral:: No Individual Education/Counseling:: No Education Schedule Given:: Yes - Education Attended class for:: Tobacco triggers, Coronary artery disease, Risk factors, Sexuality, Medical compliance, Cardiac A&P, Angina signs & symptoms Psychosocial - Initial Assess - Target Goals Target Goals: Assess presence or absence of depression. Using a valid screening tool, maximizes coping skills. Positive support system - Psychosocial Test Tool Used:: HANDS Depression Questionnaire - Assistive Devices Fall Risk Assessed:: Yes Psychosocial - 60-Day Assess - Target Goals Target Goals: Assess presence or absence of depression. Using a valid screening tool, maximizes coping skills. Positive support system - Stages of Change Stages of Change:: Action - Psychosocial Test Tool Used:: HANDS Depression Questionnaire - Intervention PS - Interventions: Yes Attend Stress Management Classes, Yes Uses Stress Management Skills, No Referral to Mental Health, No Referral to [facility] Case Management, No Referral to Physician - Education Attended classes for:: Coping techniques, Signs & symptoms of depression, Stress management, Relaxation techniques - Assistive Devices Fall Risk Assessed:: Yes Patient Health Questionnaire 60-Day Re-eval Assessment 1. Little interest or pleasure in doing things: Several days 2. Feeling down, depressed, or hopeless: Not at all 3. Trouble falling or staying asleep, or sleeping too much: Several days 4. Feeling tired or having little energy: More than half the days 5. Poor appetite or overeating: Several days 6. Feeling bad about yourself -- or that you are a failure or have let yourself or your family down: Not at all 7. Trouble concentrating on things, such as reading the newspaper or watching television: Not at all 8. Moving or speaking so slowly that other people could have noticed. Or the opposite - being so fidgety or restless that you have been moving around a lot more than usual: Not at all 9. Thoughts that you would be better off , or of hurting yourself in some way: Not at all How difficult have these problems made it for you to do your work, take care of things at home, or get along with other people?: Somewhat difficult Total Score: 5 Self-Efficacy 60-Day Re-eval Assessment We would like to know how confident you are in doing certain activities. Please select your confidence level for:: Select your confidence level for the following using the scale 1-10 where 1 is not at all confident and 10 is totally confident. Your score is the average of all 6 responses. Fatigue: How confident are you that you can keep the fatigue caused by your disease from interfering with the things you want to do? Select Number: 5 Physical Discomfort or Pain: How confident are you that you can keep the physical discomfort or pain of your disease from interfering with the things you want to do? Select Number: 5 Emotional Distress: How confident are you that you can keep the emotional distress caused by your disease from interfering with the things you want to do? Select Number: 8 Other Symptoms or Health Problems: How confident are you that you can keep other symptoms or health problems from interfering with the things you want to do? Select Number: 8 Different Tasks and Activities: How confident are you that you can do the different tasks and activities needed to manage your health condition so as to reduce your need to see a doctor? Select Number: 8 Medication: How confident are you that you can do things other than just taking medication to reduce how much your illness affects your everyday life? Select Number: 10 Total Score:: 7
[2018-05-29 10:41] VITALS: BP 122/70; BP 92/64
== END 2018-06-02 23:59 ==
LOC: CR 11:30
PROVIDERS: Family Provider Preventive Medicine Occupational Medicine; PCP Preventive Medicine Occupational Medicine; Visit Provider Internal Medicine Cardiovascular Disease
DX: I25.10 Atherosclerotic heart disease of native coronary artery without angina pectoris (principal); Z95.5 Presence of coronary angioplasty implant and graft
CPT/HCPCS: 93798

== ENCOUNTER 2018-07-03 11:30 | Outpatient (RCR) | payer MEDICARE, SELFPAY ==
[2018-03-28 12:56] VITALS: BMI 27.9
[2018-06-03 01:18] VITALS: BP 122/70; BP 92/64
--- NOTE | 2018-06-28 09:34 | CR.ITP_ITS ---
Exercise - Final/Discharge - Visit Date of Eval: 06/28/18 Session #:: 29 - scheduled to graduate 07/12/2018 - Exercise Prescription Mode:: Treadmill, Rower, Airdyne, NuStep - Hypertension Do any of the following apply?: Yes, Medication Resting Blood Pressure:: 110/58 Peak Exercise Blood Pressure:: 134/78 - Intervention Home Exercise/Activity Goal:: Moderate Exercise 30 min/day x 5 days/wk - Education Goal Progress: Goal Met - Exercise Program Goals Exercise Program Goals: Aerobic Activity >30 min Nutrition - Final Assessment - Program Goals Nutrition Program Goals: LDL <70. Total Cholesterol <200. HDL >45. Triglycerides <150. HgbA1C <7%. BMI <25 - Visit Date of Eval: 06/28/18 - Stages of Change Stages of Change:: Action - Diabetes Diabetes:: No Insulin: No Non-Insulin Dependent?: No - Weight Management Height: 5 ft 4 in Weight:: 164 lb 8 oz Body Fat %:: 28.0 - Intervention Referral to dietitian:: No Referral to Diabetic Clinic:: No Will attend diet classes:: Yes - Education Education Goal Reached?: Yes Tobacco - Initial Assessment - Program Goals Tobacco Program Goals: Complete smoking cessation. Attend education classes. Improve Knowledge Test score - Learning Barriers Learning Barriers: Ready to Learn Tobacco - Final Assessment - Program Goals Tobacco Program Goals: Complete smoking cessation. Attend education classes. Improve Knowledge Test score - Stage of Change Stages of Change:: Action - Family Support Do you have family support?: Yes - Tobacco Use Tobacco Use: Non-smoker Do you use smokeless tobacco?: No - Intervention Smoking Cessation Referral:: No Individual Education/Counseling:: No Education Schedule Given:: Yes - Education Education Goal Reached?: Yes Psychosocial - Initial Assess - Target Goals Target Goals: Assess presence or absence of depression. Using a valid screening tool, maximizes coping skills. Positive support system - Psychosocial Test Tool Used:: HANDS Depression Questionnaire - Assistive Devices Fall Risk Assessed:: Yes Psychosocial - Final Assessmen - Target Goals Target Goals: Assess presence or absence of depression. Using a valid screening tool, maximizes coping skills. Positive support system - Stages of Change Stages of Change:: Action - Psychosocial Test Tool Used:: HANDS Depression Questionnaire - Intervention PS - Interventions: Yes Attend Stress Management Classes, Yes Uses Stress Management Skills, No Referral to Mental Health, No Referral to [facility] Case Management, No Referral to Physician - Education Education Goal Reached?: Yes - Patient/Program Goal Preventative Medication(s):: Aspirin, Clopidogrel, Beta azra, Statin/lipid - Assistive Devices Assistive Devices:: None Fall Risk Assessed:: Yes Patient Health Questionnaire Discharge Assessment 1. Little interest or pleasure in doing things: Not at all 2. Feeling down, depressed, or hopeless: Not at all 3. Trouble falling or staying asleep, or sleeping too much: Not at all 4. Feeling tired or having little energy: Not at all 5. Poor appetite or overeating: Not at all 6. Feeling bad about yourself -- or that you are a failure or have let yourself or your family down: Not at all 7. Trouble concentrating on things, such as reading the newspaper or watching television: Not at all 8. Moving or speaking so slowly that other people could have noticed. Or the opposite - being so fidgety or restless that you have been moving around a lot more than usual: Not at all 9. Thoughts that you would be better off , or of hurting yourself in some way: Not at all How difficult have these problems made it for you to do your work, take care of things at home, or get along with other people?: Not difficult at all Total Score: 0 DICK-Q SV Test - Statements CAD is a disease of the arteries in the heart: False Examples of risk factors for heart disease: True Angina is chest pain or discomfort: True The benefits of resistance training include: True Eating more meat and dairy products: False Anti-platelet medications such as aspirin are important: True The only effective way to manage stress: False An exercise warm-up slowly increases heart rate: True Prepared, processed foods usually have high sodium: True Depression is common after a heart attack: True The statin medications lower cholesterol: True To control blood pressure, lower the amount of sodium: True If someone gets chest discomfort during walking: False Transfats are partially hydrogenated vegetable oils: False Sleep apnea that is not treated increases the risk: True To control cholesterol, one should become a vegetarian: False Someone knows if he/she is exercising at the right level: True Diabetes cannot be prevented with exercise & health eating: False Stress is a large risk for heart attack: True A diet that can help lower blood pressure is rich in: True - Total Score Total Correct Responses: 18 Self-Efficacy Discharge Assessment We would like to know how confident you are in doing certain activities. Please select your confidence level for:: Select your confidence level for the following using the scale 1-10 where 1 is not at all confident and 10 is totally confident. Your score is the average of all 6 responses. Fatigue: How confident are you that you can keep the fatigue caused by your disease from interfering with the things you want to do? Select Number: 10 Physical Discomfort or Pain: How confident are you that you can keep the physical discomfort or pain of your disease from interfering with the things you want to do? Select Number: 10 Emotional Distress: How confident are you that you can keep the emotional distress caused by your disease from interfering with the things you want to do? Select Number: 10 Other Symptoms or Health Problems: How confident are you that you can keep other symptoms or health problems from interfering with the things you want to do? Select Number: 10 Different Tasks and Activities: How confident are you that you can do the different tasks and activities needed to manage your health condition so as to reduce your need to see a doctor? Select Number: 10 Medication: How confident are you that you can do things other than just taking medication to reduce how much your illness affects your everyday life? Select Number: 10 Total Score:: 10 Nutrition Survey - Nutrition Survey Instructions Scoring Instructions: Scoring is as follows: Yes = 1 points. No = 0 point. Patient score that is >/=12 is considered to be at potential nutritional risk and could benefit from a referral to a registered dietitian. - Nutrition Survey Discharge Have you lost >10 lbs over the past 2 months without trying?: No Are you following a special diet at home for diabetes, low fat, or low salt?: Yes - cardiac diet low fat low sodium Are you interested in meeting with a dietitian for help understanding your diet?: No Do you eat less than 3 meals a day?: No Do you eat fatty meats (flor, sausage, ribs, etc), fried foods, desserts, large amounts of salad dressings, margarine, butter, or cheese most days?: No Do you have food allergies? [Enter types in comment field]: No Do you eat in restaurants more than 3 times a week?: No Do you season food with salt, seasoning salt, or garlic salt?: No Do you used canned, boxed, frozen meals, or soups, seasoning packets?: Yes Total Score:: 2
[2018-06-28 10:11] VITALS: BP 110/58; BP 134/78
== END 2018-07-03 23:59 ==
LOC: CR 11:30
PROVIDERS: Family Provider Preventive Medicine Occupational Medicine; PCP Preventive Medicine Occupational Medicine; Referring Provider Internal Medicine Cardiovascular Disease; Visit Provider Internal Medicine Cardiovascular Disease
DX: I25.10 Atherosclerotic heart disease of native coronary artery without angina pectoris (principal); Z95.5 Presence of coronary angioplasty implant and graft
CPT/HCPCS: 93798

== ENCOUNTER 2018-07-15 11:30 | Outpatient (RCR) | payer MEDICARE, SELFPAY ==
[2018-03-28 12:56] VITALS: BMI 27.9
[2018-07-04 01:17] VITALS: BP 110/58; BP 134/78
--- NOTE | 2018-07-24 14:01 | CR.ITP_ITS ---
Exercise - Final/Discharge - Visit Date of Eval: 07/24/18 Session #:: 36 - Completed CR 07/15/2018 - Stages of Change Stages of Change:: Action - Exercise Prescription Mode:: Treadmill, Biodyne, Rower, Airdyne, NuStep Frequency (x/week): 3 Duration:: 35 METs: 5.2 Target Heart Rate:: 113-120 - Hypertension Do any of the following apply?: Yes Resting Blood Pressure:: 120/56 Peak Exercise Blood Pressure:: 140/72 - Intervention Home Exercise/Activity Goal:: Moderate Exercise 30 min/day x 5 days/wk - Education Goal Progress: Goal Met - Exercise Program Goals Exercise Program Goals: Aerobic Activity >30 min Nutrition - Final Assessment - Program Goals Nutrition Program Goals: LDL <70. Total Cholesterol <200. HDL >45. Triglycerides <150. HgbA1C <7%. BMI <25 - Visit Date of Eval: 07/24/18 - Stages of Change Stages of Change:: Action - Diabetes Diabetes:: No - Weight Management Height: 5 ft 4 in Weight:: 165 lb Body Fat %:: 28 - Intervention Referral to dietitian:: No Referral to Diabetic Clinic:: No Will attend diet classes:: Yes - Education Education Goal Reached?: Yes Tobacco - Initial Assessment - Program Goals Tobacco Program Goals: Complete smoking cessation. Attend education classes. Improve Knowledge Test score - Learning Barriers Learning Barriers: Ready to Learn Tobacco - Final Assessment - Program Goals Tobacco Program Goals: Complete smoking cessation. Attend education classes. Improve Knowledge Test score - Stage of Change Stages of Change:: Action - Family Support Do you have family support?: No - Tobacco Use Tobacco Use: Non-smoker Do you use smokeless tobacco?: No - Intervention Smoking Cessation Referral:: No Education Schedule Given:: Yes - Education Education Goal Reached?: Yes Psychosocial - Initial Assess - Target Goals Target Goals: Assess presence or absence of depression. Using a valid screening tool, maximizes coping skills. Positive support system - Psychosocial Test Tool Used:: HANDS Depression Questionnaire - Assistive Devices Fall Risk Assessed:: Yes Psychosocial - Final Assessmen - Target Goals Target Goals: Assess presence or absence of depression. Using a valid screening tool, maximizes coping skills. Positive support system - Stages of Change Stages of Change:: Action - Psychosocial Test Tool Used:: HANDS Depression Questionnaire - Intervention PS - Interventions: Yes Attend Stress Management Classes, Yes Uses Stress Management Skills, No Referral to Mental Health, No Referral to [facility] Case Management, No Referral to Physician - Education Education Goal Reached?: Yes - Patient/Program Goal Preventative Medication(s):: Aspirin, Clopidogrel, Beta azra, Statin/lipid - Assistive Devices Assistive Devices:: None Fall Risk Assessed:: Yes Patient Health Questionnaire Discharge Assessment 1. Little interest or pleasure in doing things: Not at all 2. Feeling down, depressed, or hopeless: Not at all 3. Trouble falling or staying asleep, or sleeping too much: Not at all 4. Feeling tired or having little energy: Not at all 5. Poor appetite or overeating: Not at all 6. Feeling bad about yourself -- or that you are a failure or have let yourself or your family down: Not at all 7. Trouble concentrating on things, such as reading the newspaper or watching television: Not at all 8. Moving or speaking so slowly that other people could have noticed. Or the opposite - being so fidgety or restless that you have been moving around a lot more than usual: Not at all 9. Thoughts that you would be better off , or of hurting yourself in some way: Not at all How difficult have these problems made it for you to do your work, take care of things at home, or get along with other people?: Not difficult at all Total Score: 0 DICK-Q SV Test - Statements CAD is a disease of the arteries in the heart: False Examples of risk factors for heart disease: True Angina is chest pain or discomfort: True The benefits of resistance training include: True Eating more meat and dairy products: False Anti-platelet medications such as aspirin are important: True The only effective way to manage stress: False An exercise warm-up slowly increases heart rate: True Prepared, processed foods usually have high sodium: True Depression is common after a heart attack: True The statin medications lower cholesterol: True To control blood pressure, lower the amount of sodium: True If someone gets chest discomfort during walking: False Transfats are partially hydrogenated vegetable oils: True Sleep apnea that is not treated increases the risk: False To control cholesterol, one should become a vegetarian: False Someone knows if he/she is exercising at the right level: True Diabetes cannot be prevented with exercise & health eating: False Stress is a large risk for heart attack: True A diet that can help lower blood pressure is rich in: True - Total Score Total Correct Responses: 20 Self-Efficacy Discharge Assessment We would like to know how confident you are in doing certain activities. Please select your confidence level for:: Select your confidence level for the following using the scale 1-10 where 1 is not at all confident and 10 is totally confident. Your score is the average of all 6 responses. Fatigue: How confident are you that you can keep the fatigue caused by your disease from interfering with the things you want to do? Select Number: 10 Physical Discomfort or Pain: How confident are you that you can keep the physical discomfort or pain of your disease from interfering with the things you want to do? Select Number: 10 Emotional Distress: How confident are you that you can keep the emotional distress caused by your disease from interfering with the things you want to do? Select Number: 10 Other Symptoms or Health Problems: How confident are you that you can keep other symptoms or health problems from interfering with the things you want to do? Select Number: 10 Different Tasks and Activities: How confident are you that you can do the different tasks and activities needed to manage your health condition so as to reduce your need to see a doctor? Select Number: 10 Medication: How confident are you that you can do things other than just taking medication to reduce how much your illness affects your everyday life? Select Number: 10 Total Score:: 10 Nutrition Survey - Nutrition Survey Instructions Scoring Instructions: Scoring is as follows: Yes = 1 points. No = 0 point. Patient score that is >/=12 is considered to be at potential nutritional risk and could benefit from a referral to a registered dietitian. - Nutrition Survey Discharge Have you lost >10 lbs over the past 2 months without trying?: No Are you following a special diet at home for diabetes, low fat, or low salt?: Yes Are you interested in meeting with a dietitian for help understanding your diet?: No Do you eat less than 3 meals a day?: No Do you eat fatty meats (flor, sausage, ribs, etc), fried foods, desserts, large amounts of salad dressings, margarine, butter, or cheese most days?: No Do you have food allergies? [Enter types in comment field]: No Do you eat in restaurants more than 3 times a week?: No Do you season food with salt, seasoning salt, or garlic salt?: No Do you used canned, boxed, frozen meals, or soups, seasoning packets?: No Total Score:: 1
[2018-07-24 14:04] VITALS: BP 120/56; BP 140/72
== END 2018-08-02 23:59 ==
LOC: CR 11:30
PROVIDERS: Family Provider Preventive Medicine Occupational Medicine; PCP Preventive Medicine Occupational Medicine; Referring Provider Internal Medicine Cardiovascular Disease; Visit Provider Internal Medicine Cardiovascular Disease
DX: I25.10 Atherosclerotic heart disease of native coronary artery without angina pectoris (principal); Z95.5 Presence of coronary angioplasty implant and graft
CPT/HCPCS: 93798

== ENCOUNTER → 2018-11-12 10:39 | Outpatient (CLI) | payer MEDICARE, SELFPAY ==
[2018-11-08 10:31] VITALS: BMI 29.0
[2018-11-12 12:32] LABS: AST(SGOT) 18 U/L (15-37); Alanine Aminotransfer ALT/SGPT 32 U/L (13-56); Albumin, Serum 3.2 g/dL (3.2-5.0); Alkaline Phosphatase 46 U/L (45-117); Bilirubin, Direct 0.08 mg/dL (0.00-0.30); Cholesterol 139 mg/dL (200); High Density Lipoprotein 50 mg/dL; Protein, Total 7.2 g/dL (6.4-8.2); Triglycerides 147 mg/dL; Very Low Density Lipoprotein 29 mg/dL (5-40)
== END ==
PROVIDERS: Family Provider Preventive Medicine Occupational Medicine; PCP Preventive Medicine Occupational Medicine; Referring Provider Internal Medicine Cardiovascular Disease; Visit Provider Internal Medicine Cardiovascular Disease
DX: E78.5 Hyperlipidemia, unspecified (principal)
CPT/HCPCS: 36415; 80061; 80076

== ENCOUNTER → 2018-11-26 06:23 | Outpatient (CLI) | payer MEDICARE, SELFPAY ==
[2018-11-08 10:31] VITALS: BMI 29.0
--- NOTE | 2018-11-26 08:55 | STRESSREP ---
Stress Test Report Date: 11-26-18 Procedure: Pharmacologic stress nuclear imaging study Indications: Chest pain; CAD; PCI Consent: Per the patient Procedure: The patient underwent pharmacologic (Regadenoson) evaluation with a peak heart rate of 96 beats per minute (64% predicted maximal heart rate) and a peak blood pressure of 130/80 mmHg. The baseline ECG demonstrated normal sinus rhythm. The peak pharmacologic ECG demonstrated no obvious ECG changes. There were no cardiac dysrhythmias pretest, during pharmacologic infusion, or recovery. There was no complaint of chest discomfort during pharmacologic infusion or recovery. The examination was discontinued secondary to completion of protocol. Impression: 1. Pharmacologic (Regadenoson) evaluation 2. Peak pharmacologic ECG with no obvious ECG changes. 3. There were no cardiac dysrhythmias pretest, during pharmacologic infusion, or recovery. 4. Nuclear images pending Myocardial perfusion imaging study: Technique: The patient was injected with 10.8 millicuries of technetium 99m Cardiolite and subsequently rest SPECT Cardiolite nuclear imaging was obtained in the horizontal long, vertical long, and short axis views. The patient underwent pharmacologic (Regadenoson) evaluation with a peak heart rate of 96 beats per minute (64 % percent predicted maximal heart rate) and a peak blood pressure of 130/80 mmHg. The patient was injected with 32.3 millicuries of technetium 99m Cardiolite and subsequently stress SPECT Cardiolite nuclear imaging was obtained in the horizontal long, vertical long, and short axis views. A gated Cardiolite study at peak stress was obtained. Interpretation: Rest and stress SPECT Cardiolite nuclear imaging status post realignment, normalization, and attenuation correction demonstrate. There is end systolic thickening and brightening. The gated Cardiolite study demonstrates myocardial thickening and inward wall motion. The reported LVEF is 61 %. Impression: 1. Rest and stress SPECT Cardiolite nuclear imaging demonstrate relative uniform tracer uptake and myocardial perfusion appearing within normal limits. 2. The gated Cardiolite study reports an LVEF of 61 %. This note was generated with [email or web address] software. It may contain incorrect words, spelling, and punctuation that were not noted in checking the note before signing.
== END ==
PROVIDERS: Family Provider Preventive Medicine Occupational Medicine; PCP Preventive Medicine Occupational Medicine; Referring Provider Internal Medicine Cardiovascular Disease; Visit Provider Internal Medicine Cardiovascular Disease
DX: I25.10 Atherosclerotic heart disease of native coronary artery without angina pectoris (principal); E78.5 Hyperlipidemia, unspecified; Z95.5 Presence of coronary angioplasty implant and graft
CPT/HCPCS: 78452; 93017; A9500; A4216; J2785

== ENCOUNTER 2018-12-07 05:01 | Emergency (ER) | payer MEDICARE, SELFPAY ==
[2018-11-08 10:31] VITALS: BMI 29.0
[2018-12-07 05:01] VITALS: BP 158/71; PULSE 56; RESP 20; TEMP 36.6; O2SAT 98; BMI 28.8
--- NOTE | 2018-12-07 05:15 | CT_ITS ---
HISTORY: FELL AND HIT HEAD,RT EYE BRUISING AND LACERATION UNDER RT EYE,PT TAKES BLOOD THINNERSHX:HTN,MS EXAMINATION: CT Head or Brain W/O Contrast TECHNIQUE: Multiple axial images were obtained of the brain without intravenous contrast. A radiation dose optimization technique was used for this scan. IV Contrast dosage and agent: None. COMPARISON: None FINDINGS: Normal ventricles. Age appropriate cerebral cortical atrophy. Bilateral white matter chronic ischemic changes. No intracranial mass, hemorrhage, or acute parenchymal abnormality. Posterior fossa structures are unremarkable. No suspicious extra-axial fluid collection. Bilateral carotid atherosclerotic calcifications. The calvarium appears intact. As visualized, the mastoids and paranasal sinuses are clear. 9 x 5 x 8 mm circumscribed benign-appearing calcified nodule within the posterior lateral left orbit, above the lateral rectus muscle. CT/Brain/Head without Contrast IMPRESSION: 1. No hemorrhage or acute intracranial disease. 2. White matter chronic ischemic changes. 3. Age appropriate treatment cortical atrophy. Individualized dose optimization techniques were used for this CT. at 0615 Reported and signed by: Kalin Armando MD Electronically Signed: Kalin Armando, at 6:14 EDT Tel , Service support ,
--- NOTE | 2018-12-07 05:15 | CT_ITS ---
HISTORY: FALL,BRUISING TO RT EYE,LACERATION UNDER RT EYE,PT TAKES BLOOD THINNERSHX:HTN,MS EXAMINATION: CT Maxillofacial W/O Contrast TECHNIQUE: Helically acquired images were obtained of the facial bones. A radiation dose optimization technique was used for this scan. IV Contrast dosage and agent: None. COMPARISON: None FINDINGS: No fracture or mandibular dislocation. Intact nasal bones, orbits, and zygomas. Right infraorbital soft tissue swelling. Intact globes. No radiopaque foreign body. The para-sinuses appear clear. Mastoids and middle ear cavities appear clear. Chronic and benign-appearing 9 x 5 x 8 mm partly calcified nodule within the posterior lateral left orbit, above the lateral rectus muscle. This structure is separate from bone. CT/Sinus/Facial Bone IMPRESSION: 1. No fracture or acute osseous abnormality. 2. Right infraorbital soft tissue swelling. Intact globes. 3. Chronic and benign-appearing small calcified nodule within the posterior lateral left orbit. Individualized dose optimization techniques were used for this CT. at 0623 Reported and signed by: Kalin Armando MD Electronically Signed: Kalin Armando, at 6:22 EDT Tel , Service support ,
--- NOTE | 2018-12-07 05:15 | RAD_ITS ---
HISTORY: pt fell tonight laceration hematoma rt wrist medial posterior COMPARISON: None FINDINGS: XR right wrist 3 views No fracture, dislocation, or bony abnormality. Joint spaces are preserved. No bony erosions. Dorsal soft tissue swelling. No radiopaque foreign body. RAD/Wrist min 3 Views IMPRESSION: 1. No fracture or acute osseous abnormality. 2. Dorsal soft tissue swelling. at 0607 Reported and signed by: Kalin Armando MD Electronically Signed: Kalin Armando, at 6:06 EDT Tel , Service support ,
--- NOTE | 2018-12-07 05:16 | ED.VIS.GEN ---
History of Present Illness Chief Complaint: Fall Informant: Patient, Family Onset: Hours - 1 Context: Sudden Onset - tripped and fell in the dark in their bedroom Timing: Continuous Quality: sore Location: face, right wrist Current Severity: Moderate Maximum Severity: Moderate Worsened by: palpation, moving right wrist Relieved by: remaining still Associated Symptoms: contusion left thigh. able to stand/walk afterwards. no loc/SOLITARIO/n/v. Narrative: No focal neurologic symptoms. On Coumadin, she has a stent, but does not know why exactly she needs Coumadin. Bleeding from a laceration to her right infraorbital area. That is where she is having most pain. She denies any changes in her vision or pain to her eye proper. No diplopia. Thinks her last tetanus was over 10 years ago. She prefers to avoid tetanus booster today and will follow up with her doctor. - Past Medical History (1) HLD (hyperlipidemia) Status: Chronic (2) Atherosclerotic heart disease of [place] coronary artery without angina pectoris Status: Chronic Comment: FFR guided SAHARA 92.5 X 20mm Promus Synergy) of proximal LAD 03/27/[address] Villagomez, [facility] (3) GERD (gastroesophageal reflux disease) Status: Chronic (4) Hypothyroidism Status: Chronic (5) Multiple sclerosis Status: Chronic Past Medical History - Allergies and Home Meds Allergies/Adverse Reactions: Allergies lorazepam [From Ativan] Adverse Reaction (Severe, Verified 12/07/18 05:06) Hallucinations Primary Care Physician: Denzel Greco DO [Primary Care Provider] - Surgical History: angioplasty - w/ stent - coronary, - - elbow surgery Lives: Spouse/ Significant Other Smoking Status: Never smoker - Family History Maternal Family History: Family History (Last Reviewed 11/08/18 @ 10:33 by Milvia Garcia) Mother Cancer Father Cancer CAD (coronary artery disease) History of coronary artery bypass surgery Family History: Reports: Cancer - Leukemia Paternal Family History: Family History (Last Reviewed 11/08/18 @ 10:33 by Milvia Garcia) Mother Cancer Father Cancer CAD (coronary artery disease) History of coronary artery bypass surgery Family History: Reports: Cancer Review of Systems General: Denies: Chills, Fever, Sweats Eyes: Denies: Visual changes - bilaterally, Diplopia ENT: Reports: - - rght facial pain. Denies: Rhinorrhea, Sore throat Cardiovascular: Denies: Chest pain, Palpitations Respiratory: Denies: Dyspnea, Cough, Dyspnea on exertion Gastrointestinal: Denies: Abdominal pain, Nausea, Vomiting, Diarrhea, Melena, Hematochezia Genitourinary: Denies: Dysuria, Hematuria, Frequency Musculoskeletal: Reports: Extremity Pain - RUE, LLE. Denies: Neck pain, Back pain Skin: Reports: Wounds. Denies: Rash Neurological: Denies: Headache, Weakness, Numbness Hematologic: Reports: Easy bruising, Easy bleeding Physical Exam Vital Signs/Narrative: Vital Signs Temp Pulse Resp BP Pulse Ox 12/07/18 05:01 97.8 F 56 L 20 H 158/71 H 98 Inital Vital Signs reviewed: Yes General: Well nourished, Well developed, No Acute Distress Head: Normocephalic, Trauma - R face only, Tenderness - infraorbital right maxilla. no crepitance/instability. nontender nasal bone, zygoma. Eyes: Perrl, EOMI - w/o pain or entrapment ENT: Moist mucous membranes, No rhinorrhea, TM's clear, - - right periorbital ecchymosis. none on left. normal mastoids. no CSF otorhinorrhea.. Negative for: Nasal congestion Neck: Supple, Nontender Respiratory: Chest nontender Abdomen: Soft, Nondistended, - - pelvis NT and stable to APC. Negative for: Nontender Back: Nontender, Normal Inspection. Negative for: Spinal tenderness Extremities: No edema, Tenderness - contusion at distal right ulna. contusion at mid-lateral left thigh. no defomity. all compartments soft, nondistended. no other areas of extremity tenderness. FROM all ext joints w/o sig pain including R wrist. Skin: Normal color, No rash, Trauma - contusion w/ small hematoma R dorsal wrist and lateral mid-L thigh. small skin tear, approx 3cm, dorsal left wrist/forearm. 0.5cm partial thickness clean laceration infraorbital R maxilla, oozing venous blood. Neurological: Alert, Oriented x3, Cranial nerves II-XII grossly intact, Normal Strength, Normal Sensation, Normal Gait Psychological: Normal affect, Normal Mood Diagnostic/Tx/Re-eval Impressions Brain CT 12/07/18 05:15 IMPRESSION: 1. No hemorrhage or acute intracranial disease. 2. White matter chronic ischemic changes. 3. Age appropriate treatment cortical atrophy. Individualized dose optimization techniques were used for this CT. at 0615 Reported and signed by: Kalin Armando MD Electronically Signed: Kalin Armando, at 6:14 EDT Tel , Service support , Facial/Sinus 12/07/18 05:15 IMPRESSION: 1. No fracture or acute osseous abnormality. 2. Right infraorbital soft tissue swelling. Intact globes. 3. Chronic and benign-appearing small calcified nodule within the posterior lateral left orbit. Individualized dose optimization techniques were used for this CT. at 0623 Reported and signed by: Kalin Armando MD Electronically Signed: Kalin Armando, at 6:22 EDT Tel , Service support , Wrist X-Ray 12/07/18 05:15 IMPRESSION: 1. No fracture or acute osseous abnormality. 2. Dorsal soft tissue swelling. at 0607 Reported and signed by: Kalin Armando MD Electronically Signed: Kalin Armando, at 6:06 EDT Tel , Service support , 12/07/18 05:15 Brain/Head without Contrast [CT] Stat Sinus/Facial Bone [CT] Stat Wrist min 3 Views [RAD] Stat Laboratory Results 12/07/18 05:27 PT 13.1 INR 1.0 - Medical Decision Making Patient's INR is 1.0. On further discussion with the patient and the medication list that was not previously available, it appears that she is on a different blood thinner that starts with a C -- clopidogrel, which makes sense with her stent. She is not on Coumadin, which is why her INR is normal. CTs and x-rays showed no acute injuries. She refused to allow me to use lidocaine with epinephrine for her laceration and repair it. She kept holding pressure on it but it continued to bleed. Therefore we treated her wound with topical Surgifoam and a dressing after cleansing it. We dressed her skin tear after cleansing it. She is ambulatory. Her left thigh contusion is just that, I do not suspect a bony fracture. She was given Tylenol. Supportive care advised. Given appropriate discharge instructions. She is comfortable with that plan and will follow up with her doctor with regards to a tetanus update, since she did not want one here. ED Disposition - Plan for ED Patient: Disposition: Home or Assisted Living Diagnosis: Tetanus, diphtheria, and acellular pertussis (Tdap) vaccination declined, Thigh contusion, Skin tear of right forearm without complication, Contusion of right wrist, Facial contusion, Facial laceration, Fall from slip, trip, or stumble Instructions: ED Mechanical Fall, ED Laceration Old Not Sutr, ED Avulsion Dermal, ED Contusion Face Referrals: Denzel Greco DO [Primary Care Provider] - 3-5 Days
--- NOTE | 2018-12-07 05:20 | ED.DCSUM_ITS ---
History of Present Illness Chief Complaint: Fall Informant: Patient, Family Onset: Hours - 1 Context: Sudden Onset - tripped and fell in the dark in their bedroom Timing: Continuous Quality: sore Location: face, right wrist Current Severity: Moderate Maximum Severity: Moderate Worsened by: palpation, moving right wrist Relieved by: remaining still Associated Symptoms: contusion left thigh. able to stand/walk afterwards. no loc/SOLITARIO/n/v. Narrative: No focal neurologic symptoms. On Coumadin, she has a stent, but does not know why exactly she needs Coumadin. Bleeding from a laceration to her right infraorbital area. That is where she is having most pain. She denies any changes in her vision or pain to her eye proper. No diplopia. Thinks her last tetanus was over 10 years ago. She prefers to avoid tetanus booster today and will follow up with her doctor. - Past Medical History (1) HLD (hyperlipidemia) Status: Chronic (2) Atherosclerotic heart disease of [place] coronary artery without angina pectoris Status: Chronic Comment: FFR guided SAHARA 92.5 X 20mm Promus Synergy) of proximal LAD 03/27/[address] Villagomez, [facility] (3) GERD (gastroesophageal reflux disease) Status: Chronic (4) Hypothyroidism Status: Chronic (5) Multiple sclerosis Status: Chronic Past Medical History - Allergies and Home Meds Allergies/Adverse Reactions: Allergies lorazepam [From Ativan] Adverse Reaction (Severe, Verified 12/07/18 05:06) Hallucinations Primary Care Physician: Denzel Greco DO [Primary Care Provider] - Surgical History: angioplasty - w/ stent - coronary, - - elbow surgery Lives: Spouse/ Significant Other Smoking Status: Never smoker - Family History Maternal Family History: Family History (Last Reviewed 11/08/18 @ 10:33 by Milvia Garcia) Mother Cancer Father Cancer CAD (coronary artery disease) History of coronary artery bypass surgery Family History: Reports: Cancer - Leukemia Paternal Family History: Family History (Last Reviewed 11/08/18 @ 10:33 by Milvia Garcia) Mother Cancer Father Cancer CAD (coronary artery disease) History of coronary artery bypass surgery Family History: Reports: Cancer Review of Systems General: Denies: Chills, Fever, Sweats Eyes: Denies: Visual changes - bilaterally, Diplopia ENT: Reports: - - rght facial pain. Denies: Rhinorrhea, Sore throat Cardiovascular: Denies: Chest pain, Palpitations Respiratory: Denies: Dyspnea, Cough, Dyspnea on exertion Gastrointestinal: Denies: Abdominal pain, Nausea, Vomiting, Diarrhea, Melena, Hematochezia Genitourinary: Denies: Dysuria, Hematuria, Frequency Musculoskeletal: Reports: Extremity Pain - RUE, LLE. Denies: Neck pain, Back pain Skin: Reports: Wounds. Denies: Rash Neurological: Denies: Headache, Weakness, Numbness Hematologic: Reports: Easy bruising, Easy bleeding Physical Exam Vital Signs/Narrative: Vital Signs Temp Pulse Resp BP Pulse Ox 12/07/18 05:01 97.8 F 56 L 20 H 158/71 H 98 Inital Vital Signs reviewed: Yes General: Well nourished, Well developed, No Acute Distress Head: Normocephalic, Trauma - R face only, Tenderness - infraorbital right maxilla. no crepitance/instability. nontender nasal bone, zygoma. Eyes: Perrl, EOMI - w/o pain or entrapment ENT: Moist mucous membranes, No rhinorrhea, TM's clear, - - right periorbital ecchymosis. none on left. normal mastoids. no CSF otorhinorrhea.. Negative for: Nasal congestion Neck: Supple, Nontender Respiratory: Chest nontender Abdomen: Soft, Nondistended, - - pelvis NT and stable to APC. Negative for: Nontender Back: Nontender, Normal Inspection. Negative for: Spinal tenderness Extremities: No edema, Tenderness - contusion at distal right ulna. contusion at mid-lateral left thigh. no defomity. all compartments soft, nondistended. no other areas of extremity tenderness. FROM all ext joints w/o sig pain including R wrist. Skin: Normal color, No rash, Trauma - contusion w/ small hematoma R dorsal wrist and lateral mid-L thigh. small skin tear, approx 3cm, dorsal left wrist/forearm. 0.5cm partial thickness clean laceration infraorbital R maxilla, oozing venous blood. Neurological: Alert, Oriented x3, Cranial nerves II-XII grossly intact, Normal Strength, Normal Sensation, Normal Gait Psychological: Normal affect, Normal Mood Diagnostic/Tx/Re-eval Impressions Brain CT 12/07/18 05:15 IMPRESSION: 1. No hemorrhage or acute intracranial disease. 2. White matter chronic ischemic changes. 3. Age appropriate treatment cortical atrophy. Individualized dose optimization techniques were used for this CT. at 0615 Reported and signed by: Kalin Armando MD Electronically Signed: Kalin Armando, at 6:14 EDT Tel , Service support , Facial/Sinus 12/07/18 05:15 IMPRESSION: 1. No fracture or acute osseous abnormality. 2. Right infraorbital soft tissue swelling. Intact globes. 3. Chronic and benign-appearing small calcified nodule within the posterior lateral left orbit. Individualized dose optimization techniques were used for this CT. at 0623 Reported and signed by: Kalin Armando MD Electronically Signed: Kalin Armando, at 6:22 EDT Tel , Service support , Wrist X-Ray 12/07/18 05:15 IMPRESSION: 1. No fracture or acute osseous abnormality. 2. Dorsal soft tissue swelling. at 0607 Reported and signed by: Kalin Armando MD Electronically Signed: Kalin Armando, at 6:06 EDT Tel , Service support , 12/07/18 05:15 Brain/Head without Contrast [CT] Stat Sinus/Facial Bone [CT] Stat Wrist min 3 Views [RAD] Stat Laboratory Results 12/07/18 05:27 PT 13.1 INR 1.0 - Medical Decision Making Patient's INR is 1.0. On further discussion with the patient and the medication list that was not previously available, it appears that she is on a different blood thinner that starts with a C -- clopidogrel, which makes sense with her stent. She is not on Coumadin, which is why her INR is normal. CTs and x-rays showed no acute injuries. She refused to allow me to use lidocaine with epinephrine for her laceration and repair it. She kept holding pressure on it but it continued to bleed. Therefore we treated her wound with topical Surgifoam and a dressing after cleansing it. We dressed her skin tear after cleansing it. She is ambulatory. Her left thigh contusion is just that, I do not suspect a bony fracture. She was given Tylenol. Supportive care advised. Given appropriate discharge instructions. She is comfortable with that plan and will follow up with her doctor with regards to a tetanus update, since she did not want one here. ED Disposition - Plan for ED Patient: Disposition: Home or Assisted Living Diagnosis: Tetanus, diphtheria, and acellular pertussis (Tdap) vaccination declined, Thigh contusion, Skin tear of right forearm without complication, Contusion of right wrist, Facial contusion, Facial laceration, Fall from slip, trip, or stumble Instructions: ED Mechanical Fall, ED Laceration Old Not Sutr, ED Avulsion Dermal, ED Contusion Face Referrals: Denzel Greco DO [Primary Care Provider] - 3-5 Days
[2018-12-07] MEDS: Acetaminophen 500 MG Tablet 1000 MG PO (05:24)
[2018-12-07 05:52] LABS: Prothrombin Time (Protime)PT. 13.1 SECONDS (11.7-14.9)
[2018-12-07 07:14] VITALS: PULSE 60; RESP 18; O2SAT 97
== END 2018-12-07 07:16 | disposition home or self-care (01) ==
PROVIDERS: Emergency Provider Emergency Medicine; Family Provider Preventive Medicine Occupational Medicine; PCP Preventive Medicine Occupational Medicine
DX: S01.81XA Laceration without foreign body of other part of head, initial encounter (principal); S51.811A Laceration without foreign body of right forearm, initial encounter; S05.11XA Contusion of eyeball and orbital tissues, right eye, initial encounter; S60.211A Contusion of right wrist, initial encounter; S70.12XA Contusion of left thigh, initial encounter; W01.0XXA Fall on same level from slipping, tripping and stumbling without subsequent striking against object, initial encounter; Y93.9 Activity, unspecified; Y92.003 Bedroom of unspecified non-institutional (private) residence as the place of occurrence of the external cause; I25.10 Atherosclerotic heart disease of native coronary artery without angina pectoris; K21.9 Gastro-esophageal reflux disease without esophagitis; E78.5 Hyperlipidemia, unspecified; E03.9 Hypothyroidism, unspecified; G35 Multiple sclerosis; Z79.82 Long term (current) use of aspirin; Z79.899 Other long term (current) drug therapy
CPT/HCPCS: 12011; 36415; 70450; 70486; 73110; 85610; 99283

== ENCOUNTER → 2019-05-20 10:20 | Outpatient (CLI) | payer MEDICARE, SELFPAY ==
[2019-05-16 14:45] VITALS: BMI 30.2
[2019-05-20 11:11] LABS: AST(SGOT) 14 U/L (15-37); Alanine Aminotransfer ALT/SGPT 21 U/L (13-56); Albumin, Serum 3.2 g/dL (3.2-5.0); Alkaline Phosphatase 56 U/L (45-117); Cholesterol 136 mg/dL (200); Globulin 4.4 g/dL (2.2-4.2); High Density Lipoprotein 47 mg/dL; Protein, Total 7.6 g/dL (6.4-8.2); Triglycerides 153 mg/dL; Very Low Density Lipoprotein 31 mg/dL (5-40)
== END ==
PROVIDERS: Family Provider Preventive Medicine Occupational Medicine; PCP Preventive Medicine Occupational Medicine; Referring Provider Nurse Practitioner Family; Visit Provider Nurse Practitioner Family
DX: E78.5 Hyperlipidemia, unspecified (principal)
CPT/HCPCS: 36415; 80061; 80076

== ENCOUNTER → 2020-02-05 09:46 | Outpatient (CLI) | payer MEDICARE, SELFPAY ==
[2020-02-05 10:59] LABS: AST(SGOT) 15 U/L (15-37); Alanine Aminotransfer ALT/SGPT 20 U/L (13-56); Albumin, Serum 3.3 g/dL (3.2-5.0); Alkaline Phosphatase 52 U/L (45-117); Bilirubin, Direct 0.12 mg/dL (0.00-0.30); Cholesterol 139 mg/dL (200); Globulin 4.4 g/dL (2.2-4.2); High Density Lipoprotein 45 mg/dL; Protein, Total 7.7 g/dL (6.4-8.2); Triglycerides 134 mg/dL; Very Low Density Lipoprotein 27 mg/dL (5-40)
== END ==
PROVIDERS: PCP Preventive Medicine Occupational Medicine; Referring Provider Internal Medicine Cardiovascular Disease; Visit Provider Internal Medicine Cardiovascular Disease
DX: E78.00 Pure hypercholesterolemia, unspecified (principal)
CPT/HCPCS: 80061; 80076

== ENCOUNTER → 2021-07-27 09:49 | Outpatient (CLI) | payer MEDICARE, SELFPAY ==
[2021-07-27 11:16] LABS: AST(SGOT) 14 U/L (15-37); Alanine Aminotransfer ALT/SGPT 21 U/L (13-56); Albumin, Serum 2.8 g/dL (3.2-5.0); Alkaline Phosphatase 50 U/L (45-117); Bilirubin, Direct 0.12 mg/dL (0.00-0.30); Cholesterol 125 mg/dL (200); Globulin 4.3 g/dL (2.2-4.2); High Density Lipoprotein 46 mg/dL; Protein, Total 7.1 g/dL (6.4-8.2); Triglycerides 106 mg/dL; Very Low Density Lipoprotein 21 mg/dL (5-40)
== END ==
PROVIDERS: PCP Preventive Medicine Occupational Medicine; Referring Provider Internal Medicine Cardiovascular Disease; Visit Provider Internal Medicine Cardiovascular Disease
DX: E78.00 Pure hypercholesterolemia, unspecified (principal)
CPT/HCPCS: 36415; 80061; 80076

== ENCOUNTER → 2021-08-11 07:05 | Outpatient (CLI) | payer MEDICARE, SELFPAY ==
--- NOTE | 2021-08-11 09:57 | STRESSREP_ITS ---
Stress Test Report Date: 08-11-2021 Procedure: Pharmacologic stress nuclear imaging study Indications: Chest pain; CAD; PCI Consent: Per the patient Procedure: The patient underwent pharmacologic (Regadenoson 0.4mg ) evaluation with a peak heart rate of 95 beats per minute (64%predicted maximal heart rate) and a peak blood pressure of 128/80 mmHg. The baseline ECG demonstrated sinus bradycardia. The peak pharmacologic ECG demonstrated no obvious ECG changes. There were no cardiac dysrhythmias pretest, during pharmacologic infusion, or recovery. There was no complaint of chest discomfort during pharmacologic infusion or recovery. The examination was discontinued secondary to completion of protocol. Impression: 1. Pharmacologic (Regadenoson) evaluation 2. Peak pharmacologic ECG with no obvious ECG changes. 3. There were no cardiac dysrhythmias pretest, during pharmacologic infusion, or recovery. 4. Nuclear images pending Myocardial perfusion imaging study: Technique: The patient was injected with 11.1 millicuries of technetium 99m Cardiolite and subsequently rest SPECT Cardiolite nuclear imaging was obtained in the horizontal long, vertical long, and short axis views. The patient underwent pharmacologic (Regadenoson) evaluation with a peak heart rate of 95 beats per minute (64% percent predicted maximal heart rate) and a peak blood pressure of 128/80 mmHg. The patient was injected with 33.5 millicuries of technetium 99m Cardiolite and subsequently stress SPECT Cardiolite nuclear imaging was obtained in the horizontal long, vertical long, and short axis views. A gated Cardiolite study at peak stress was obtained. Interpretation: Rest and stress SPECT Cardiolite nuclear imaging status post realignment, normalization, and attenuation correction demonstrate relative uniform tracer uptake and myocardial perfusion appearing within normal limits. There is end systolic thickening and brightening. The gated Cardiolite study demonstrates myocardial thickening and inward wall motion. The reported LVEF is 64%. Impression: 1. Rest and stress SPECT Cardiolite nuclear imaging demonstrate relative uniform tracer uptake and myocardial perfusion appearing within normal limits. 2. The gated Cardiolite study reports an LVEF of 64%. This note was generated with [employer] software. It may contain incorrect words, spelling, and punctuation that were not noted in checking the note before signing.
== END ==
PROVIDERS: PCP Preventive Medicine Occupational Medicine; Referring Provider Nurse Practitioner Family; Visit Provider Nurse Practitioner Family
DX: R07.9 Chest pain, unspecified (principal); I25.10 Atherosclerotic heart disease of native coronary artery without angina pectoris; E78.5 Hyperlipidemia, unspecified; I10 Essential (primary) hypertension; Z95.5 Presence of coronary angioplasty implant and graft
CPT/HCPCS: 78452; 93017; A9500; A4216; J2785

== ENCOUNTER → 2022-09-06 | Outpatient (CLI) | payer MEDICARE, SELFPAY ==
[2022-09-06 12:11] LABS: AST(SGOT) 13 U/L (15-37); Alanine Aminotransfer ALT/SGPT 22 U/L (13-56); Albumin, Serum 3.3 g/dL (3.2-5.0); Alkaline Phosphatase 42 U/L (45-117); Bilirubin, Direct 0.15 mg/dL (0.00-0.30); Cholesterol 159 mg/dL (200); Globulin 4.1 g/dL (2.2-4.2); High Density Lipoprotein 53 mg/dL; Protein, Total 7.4 g/dL (6.4-8.2); Triglycerides 132 mg/dL; Very Low Density Lipoprotein 26 mg/dL (5-40)
== END | disposition home or self-care (01) ==
PROVIDERS: PCP Preventive Medicine Occupational Medicine; Visit Provider Internal Medicine Cardiovascular Disease
DX: E78.5 Hyperlipidemia, unspecified (principal)
CPT/HCPCS: 36415; 80061; 80076

== ENCOUNTER 2024-01-09 19:02 | Emergency (ER) | payer MEDICARE, SELFPAY ==
[2024-01-09 19:02] VITALS: BP 135/64; PULSE 64; RESP 19; TEMP 36.4; O2SAT 100; BMI 29.0
--- NOTE | 2024-01-09 19:30 | EDS_ITS ---
HPI History of Present Illness HPI Narrative: Patient presents with pain and swelling to her right elbow that began after a fall 2 days ago. Patient states she fell forward but was unable to put her arm out in front of her to catch her. Patient states she landed on her right elbow area. Patient states her pain is worse with certain movements. Patient denies any paresthesias or weakness. Patient describes her pain as sharp. Patient also admits to some bruising over both knees. Patient denies any head injury or loss of consciousness. Patient denies any other injuries. Chief Complaint: Upper Extremity Injury Onset/Context/Timing Onset: Days (2) Context: Sudden Onset Timing: Continuous Quality of Pain: Sharp Location: Right elbow Worsened by: Movement Relieved by: Rest Associated Symptoms Associated Symptoms: Negative for Parasthesia, Weakness or Loss of Funtion [facility] Medical History Atherosclerotic heart disease of [place] coronary artery without angina pectoris Chest pain Essential hypertension GERD (gastroesophageal reflux disease) HLD (hyperlipidemia) Hypothyroidism Multiple sclerosis Home Medications aspirin 81 mg tablet,delayed release 81 mg PO DAILY@0800 HEART HEALTH 01/15/18 [History Last Taken Unknown] ergocalciferol (vitamin D2) 1,250 mcg (50,000 unit) capsule 50,000 unit PO TU SUPPLEMENT 01/15/18 [History Last Taken Unknown] omeprazole 40 mg capsule,delayed release 40 mg PO DAILY ACID REFLUX 01/15/18 [History Last Taken Unknown] tramadol 50 mg tablet 100 mg PO Q8H PRN PRN Pain 01/15/18 [History Last Taken Unknown] levothyroxine 50 mcg tablet 50 mcg PO DAILY THYROID 05/16/19 [History Last Taken Unknown] levothyroxine 25 mcg tablet 75 mcg PO .COMPLEX 03/30/20 [History Last Taken Unknown] nitroglycerin 0.4 mg sublingual tablet 0.4 mg sublingual Q5M PRN Cardiac/Chest Pain #90 tabs 08/14/22 [Rx Last Taken Unknown] metoprolol tartrate 25 mg tablet 25 mg PO BID #180 tabs 03/29/23 [Rx Last Taken Unknown] clopidogrel 75 mg tablet (Plavix) 75 mg PO DAILY #90 tabs 04/20/23 [Rx Last Taken Unknown] atorvastatin 40 mg tablet 40 mg PO QHS #90 tabs 06/25/23 [Rx Last Taken Unknown] lisinopril 10 mg tablet See Rx Instructions .Route .COMPLEX #180 tabs 07/13/23 [Rx Last Taken Unknown] Allergy/AdvReac Type Severity Reaction Status Date / Time lorazepam [From Ativan] AdvReac Severe Hallucinati Verified 02/22/23 11:38 ons Family History Mother Cancer Leukemia Father Cancer CAD (coronary artery disease) History of coronary artery bypass surgery Surgical History History of elbow surgery Postsurgical percutaneous transluminal coronary angioplasty (PTCA) status (~03/04 01/18) Presence of stent in coronary artery (~03/27/18) Social History Smoking Status: Never smoker alcohol intake: never substance use type: does not use caffeine: Yes Type: carbonated beverages Number of servings: 2 ROS ROS ED Constitutional Constitutional ED: Denies chills or fever(s) Eyes Eyes: Denies blurry vision or change in vision ENT ENT ED: Denies rhinorrhea or sore throat Cardiovascular Cardiovascular: Denies chest pain or palpitations Respiratory/Chest Respiratory/Chest: Denies cough or dyspnea Gastrointestinal Gastrointestinal: Denies nausea or vomiting Genitourinary Genitourinary ED: Denies dysuria or hematuria Musculoskeletal Musculoskeletal: Denies back pain or neck pain Integumentary Reports rash; Denies abscess Neurologic Neurologic: Denies headache(s) or weakness Allergic/Immunologic Allergic/Immunologic ED: Denies mouth swelling or urticaria EXAM Physical Exam Const Vital Signs: 01/09/24 19:02 Temperature 97.6 F L Temperature Source Temporal Pulse Rate 64 Respiratory Rate 19 H Blood Pressure 135/64 H Blood Pressure Mean 87 Pulse Ox 100 Oxygen Delivery Method Room Air Positive well nourished and well developed General Appearance ED: well developed and NAD HEENT Reports moist mucous membranes Neck full ROM and supple Extremity Extremity Narrative: There is tenderness, edema, and ecchymosis over the right elbow. Range of motion was limited in flexion and extension of the right elbow secondary to pain. There is also some mild pain with supination. There is no obvious deformity noted. Radial pulses are equal bilaterally. Sensation was intact to light touch in the radial, median, and ulnar areas. Strength is 5/5 in the radial, median, and ulnar areas. There is mild tenderness over the anterior aspects of the knees bilaterally. There is no deformity noted. There is full range of motion. Neuro oriented x3, CN's II-XII intact bilaterally, moves all extremities, no focal motor deficits and no sensory deficits noted Sensorium / Orientation: alert Motor Exam: strength 5/5 throughout Psych mental status grossly normal MDM MDM MDM Narrative Medical decision making narrative: Differential diagnosis includes fracture, contusion, and sprain. X-rays of the right elbow will be obtained to assess for fracture and dislocation. Radiography Diagnostic Testing: X-rays of the right elbow were obtained. There are 4 views. On my independent interpretation, there is a nondisplaced fracture of the radial head. There is positive anterior posterior fat-pad signs noted. Radiologist also interpreted the x-rays and noted that the radial head fracture appears to be old. Treatment and Re-Evaluation Narrative: Patient was advised of her findings. Patient was advised that there could be a radial head fracture that could be either new or old. Patient was instructed to ice and elevate the right elbow. Patient was advised to do range of motion exercises with her elbow. Patient was advised that immobilization is no longer recommended for radial head fractures. Patient was instructed to continue using her tramadol as needed for pain. Patient was instructed to follow-up with her primary care physician in 5 to 7 days. Patient was instructed to return if worse in any way. Patient understood and was agreeable with the plan. All questions were answered. Discharge Plan Triage Chief Complaint: Upper Extremity Injury ED Provider: David Baker Dx/Rx/DC Orders Clinical Impression: Fall, Closed fracture of head of right radius Instructions: ED Radial Head Fracture Prescriptions: No Action nitroglycerin 0.4 mg tablet, sublingual 0.4 mg SUBLINGUAL Q5M PRN (Reason: Cardiac/Chest Pain) Qty: 90 6RF omeprazole 40 MG capsule,delayed release(DR/EC) 40 mg PO DAILY aspirin 81 MG tablet 81 mg PO DAILY@0800 tramadol 50 MG tablet 100 mg PO Q8H PRN PRN (Reason: Pain) ergocalciferol (vitamin D2) 50,000 UNIT capsule 50,000 unit PO levothyroxine 50 mcg tablet 50 mcg PO DAILY Rx Instructions: and sunday 75mcg daily levothyroxine 25 mcg tablet 75 mcg PO .COMPLEX Patient Comments: 25 mcg PO on and Sunday Rx Instructions: 75 mcg PO on and Sunday; metoprolol tartrate 25 mg tablet 25 mg PO BID Qty: 180 3RF clopidogrel [Plavix] 75 mg tablet 75 mg PO DAILY Qty: 90 3RF atorvastatin 40 mg tablet 40 mg PO QHS Qty: 90 3RF lisinopril 10 mg tablet See Rx Instructions .ROUTE .COMPLEX Qty: 180 3RF Dose Instruction: Take 1 tablet by mouth twice daily Rx Instructions: Take 1 tablet by mouth twice daily Primary Care Provider: Denezl Greco Referrals: Denzel Greco DO [Primary Care Provider] - 5-7 Days Disposition Disposition: Home, Self Care
--- NOTE | 2024-01-09 19:38 | RAD_ITS ---
STUDY: X-RAY - RIGHT ELBOW REASON FOR EXAM: Female, 73 years old. Injury/Pain TECHNIQUE: 4 view(s) of the elbow. COMPARISON: None. FINDINGS: Old healed fracture of the radial head and neck, ulna and distal humerus. 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 The soft tissue structures are unremarkable. RAD/Elbow min 3 Views IMPRESSION: Multiple old healed fractures and degenerative changes. No acute fracture or dislocation Electronically Signed: Shad Campbell MD at 20:16 EDT ,
[2024-01-09 20:34] VITALS: BP 135/64; PULSE 68; RESP 15; TEMP 36.4; O2SAT 100
== END 2024-01-09 20:34 | disposition home or self-care (01) ==
PROVIDERS: Emergency Provider Emergency Medicine; PCP Preventive Medicine Occupational Medicine; Visit Provider Emergency Medicine
DX: S52.124A Nondisplaced fracture of head of right radius, initial encounter for closed fracture (principal); S80.02XA Contusion of left knee, initial encounter; S80.01XA Contusion of right knee, initial encounter; I25.10 Atherosclerotic heart disease of native coronary artery without angina pectoris; I10 Essential (primary) hypertension; E78.5 Hyperlipidemia, unspecified; K21.9 Gastro-esophageal reflux disease without esophagitis; W19.XXXA Unspecified fall, initial encounter
CPT/HCPCS: 73080; 99282

== ENCOUNTER → 2025-04-30 | Outpatient (CLI) | payer MEDICARE, SELFPAY ==
--- OUTSIDE RECORDS SUMMARY | 2025-04-30 07:07 | XMS RPT_ITS | CCD ---
Author Organization [facility] Care Team Providers Care Buzzsaw Operator Name Role Phone VINCE GRECO DO Primary Care Physician [phone] Dr. Vince Greco Primary Care Provider Dr. Vince Greco Referring Provider [phone] Dr. Drew Modi Attending Provider [phone] VINCE GRECO DO Attending Unavailable VINCE GRECO DO Primary Care Unavailable VINCE GRECO DO Attending Unavailable VINCE GRECO DO Primary Care Unavailable Dr. Vince Greco DO Primary Care Provider [phone] Dr. Vince Greco DO Referring Provider Dr. Chan Seay MD Attending Provider [phone] Chan Seay Attending Unavailable Vince Greco Primary Care Unavailable Vince Greco Referring Unavailable Chan Seay Attending Unavailable Chan Seay Referring Unavailable KIESHA ARGUELLO Primary Care Unavailable Allergies Allergy Classification Reported Allergen(s) Allergy Type Date of Onset Reaction(s) Facility (4 sources) Sulfamethoxazole / Trimethoprim; Translations: [sulfamethoxazole-t rimethoprim] Drug Allergy Nausea (finding) [facility] [place] (3 sources) LORazepam Drug Allergy 08-14-20 Hallucinations [facility] (1 source) LORazepam Drug Allergy 04-07-20 [facility] Repository Medications Current Medications Medication Drug Class(es) Dates Sig (Normalized) Sig (Original) atorvastatin 40 mg oral tablet (20 sources) HMG-CoA Reductase Inhibitor Start: 03-28-2018 End: 07-07-2024 take 1 tablet by mouth at bedtime Atorvastatin 40 mg tablet Active 40 mg PO AT BEDTIME 90 3 July 07, 2024 9:02am cholecalciferol 1.25 mg oral capsule (5 sources) Vitamin D Start: 03-24-2024 End: 03-19-2025 cholecalciferol 1250 mcg (50,000 intl units) oral capsule Dose : 50,000 International_Unit = 1 cap(s), Oral, every other week, # 7 cap(s), 3 Refill(s), Pharmacy: [facility], 158.5, cm, 03/03/24 10:06:00 EDT, Height, kg, 03/03/24 10:06:00 EDT, Dosing Weight Start Date: 03/24/24 Stop Date: 03/19/25 Status: Ordered Quantity: 7.0 Unit: cap(s) Repeat number: 4 Start: 02-25-2024 take 1 capsule by [facility] every other week Cholecalciferol (Vitamin D3) 1,250 mcg (50,000 unit) capsule Active 1250 ug PO every 2 weeks February 25, 2024 12:00am Start: 01-24-2023 End: 01-19-2024 cholecalciferol 1250 mcg (50 ,000 intl units) oral capsule Dose : 50,000 International_Unit = 1 cap(s), Oral, qWeek, # 13 cap(s), 3 Refill(s), Pharmacy: [facility], 158, cm, 12/20/22 13:43:00 EDT, Height, kg, 12/20/22 13:43:00 EDT, Dosing Weight Start Date: 01/24/23 Stop Date: 01/19/24 Status: Ordered Start: 01-23-2022 End: 01-18-2023 cholecalciferol 1250 mcg (50 ,000 intl units) oral capsule Dose : 50,000 International_Unit = 1 cap(s), Oral, qWeek, # 13 cap(s), 3 Refill(s), Pharmacy: [facility], 165, cm, 11/23/21 13:13:00 EDT, Height, kg, 11/23/21 13:13:00 EDT, Dosing Weight Start Date: 01/23/22 Stop Date: 01/18/23 Status: Ordered clopidogrel 75 mg oral tablet (20 sources) [id number] Platelet Inhibitor Start: 04-21-2019 End: 04-07-2025 take 1 tablet by mouth once daily Clopidogrel 75 mg tablet Active 75 mg PO DAILY 90 3 April 07, 2025 11:06am Start: 04-25-2018 End: 04-21-2019 Clopidogrel (Plavix) 75 mg t ablet Discontinued 75 mg PO DAILY 30 April 25, 2018 12:00am April 21, 2019 6:51am 4 Tablets on Day 1 and the 1 tablet po qday folic acid 1 mg oral tablet (6 sources) Start: 03-24-2024 folic acid 1 m g oral tablet See Instructions, 1 tab(s) Oral qDay 100 day(s), taking QOD, # 100 tab(s), 3 Refill(s), Pharmacy: [facility], 158.5, cm, 03/03/24 10:06:00 EDT, Height, kg, 03/03/24 10:06:00 EDT, Dosing Weight Start Date: 03/24/24 Status: Ordered Quantity: 100.0 Unit: tab(s) Repeat number: 4 Start: 02-25-2024 take 1 tablet by [place] th every other day Folic Acid 1 mg tablet Active 1 mg PO every other day February 25, 2024 12:00am Start: 01-24-2023 End: 01-19-2024 folic acid 1 mg oral tablet Dose : 1 mg = 1 tab(s), Oral, qDay, # 90 tab(s), 3 Refill(s), Pharmacy: [facility], 158, cm, 12/20/22 13:43:00 EDT, Height Start Date: 01/24/23 Stop Date: 01/19/24 Status: Ordered Start: 01-15-2018 End: 08-14-2022 take 1 tablet by mouth once daily Folic Acid 1 MG tablet Discontinued 1 mg PO DAILY@00 January 15, 2018 12:00am August 14, 2022 12:29pm SUPPLEMENT ketoconazole 20 mg/ml topical cream (1 source) Azole Antifungal Start: 12-20-2022 End: 01-03-2023 ketoconazole 2% topical cream Apply 1 quintin, Topical, qDay, X 14 day(s), # 15 gram(s), 0 Refill(s), Pharmacy: [facility], Cream, 158, cm, 12/20/22 13:43:00 EDT, Height, 77.1 Start Date: 12/20/22 Stop Date: 01/03/23 Status: Ordered levothyroxine sodium 0.05 mg oral tablet (19 sources) l-Thyroxine Start: 01-07-2024 levothyroxine 50 mcg (0.05 mg) oral tablet See Instructions, TAKE ONE & ONE-HALF TABLETS BY MOUTH ON SUNDAY AND SUNDAY. TAKE ONE TABLET ONCE DAILY ON ALL OTHER DAYS, # 104 tab(s), 3 Refill(s), Pharmacy: [facility], 158.5, cm, 12/31/23 15:02:00 EDT, Height, kg, 12/31/23 15:02:00 EDT, Dosing Weight Start Date: 01/07/24 Status: Ordered Quantity: 104.0 Unit: tab(s) Repeat number: 4 Start: 12-20-2022 levothyroxine 50 mcg (0.05 mg) oral tablet See Instructions, TAKE ONE & ONE-HALF TABLETS BY MOUTH ON SUNDAY AND SUNDAY. TAKE ONE TABLET ONCE DAILY ON ALL OTHER DAYS, # 104 tab(s), 3 Refill(s), Pharmacy: [facility], 158, cm, 12/20/22 13:43:00 EDT, Height, kg, 12/20/22 13:43:00 EDT,... Start Date: 12/20/22 Status: Ordered Start: 12-01-2021 levothyroxine 50 mcg (0.05 mg) oral tablet See Instructions, TAKE ONE & ONE-HALF TABLETS BY MOUTH ON SUNDAY AND SUNDAY. TAKE ONE TABLET ONCE DAILY ON ALL OTHER DAYS, # 102 tab(s), 3 Refill(s), Pharmacy: [facility], 165, cm, 11/23/21 13:13:00 EDT, Height, kg, 11/23/21 13:13:00 EDT,... Start Date: 12/01/21 Status: Ordered Start: 03-30-2020 Levothyroxine 25 mcg tablet Active 75 ug PO .COMPLEX March 30, 2020 10:56am 75 mcg PO on and Sunday; Start: 03-30-2020 Levothyroxine Active 75 MCG PO .COMPLEX March 30, 2020 10:56am 75 mcg PO on and Sunday; Start: 05-16-2019 Levothyroxine 50 mcg tablet Active 50 ug PO DAILY May 16, 2019 2:58pm THYROID and sunday 75mcg daily Start: 04-15-2018 End: 03-30-2020 Levothyroxine 25 mcg tablet Discontinued 25 ug PO .COMPLEX April 25, 2018 11:52am March 30, 2020 10:57am 25 mcg PO on and Sunday Start: 01-15-2018 End: 05-16-2019 take 1 tablet by mouth once daily Levothyroxine 50 MCG tablet Discontinued 50 ug PO DAILY January 15, 2018 12:00am May 16, 2019 2:59pm THYROID lisinopril 10 mg oral tablet (20 sources) Angiotensin Converting Enzyme Inhibitor Start: 07-13-2023 take 1 tablet by mouth twice daily Lisinopril Active 0 .ROUTE .COMPLEX 180 July 13, 2023 12:24pm Take 1 tablet by mouth twice daily Start: 03-28-2018 End: 07-17-2024 take 1 tablet by mouth twice daily Lisinopril 10 mg tablet Active 0 .ROUTE .COMPLEX 180 3 July 17, 2024 2:12pm Take 1 tablet by mouth twice daily Lopressor 25mg--USE metoprol ol tartrate 25 mg oral tablet (4 sources) Start: 12-22-2024 Lopressor 25mg --USE metoprolol tartrate 25 mg oral tablet Dose : 25 mg = 1 tab(s), Oral, BID, 0 Refill(s) Start Date: 12/22/24 Status: Ordered Repeat number: 1 Start: 03-25-2019 Lopressor 25mg --USE metoprolol tartrate 25 mg oral tablet 0 Refill(s) Start Date: 03/25/19 Status: Ordered metoprolol tartrate 25 mg oral tablet (20 sources) beta-Adrenergic Jina Start: 03-28-2018 End: 04-07-2025 take 1 tablet by mouth twice daily Metoprolol Tartrate 25 mg tablet Active 25 mg PO TWICE A DAY 180 3 April 07, 2025 11:06am nitroglycerin 0.4 mg sublingual tablet (10 sources) Nitrate Vasodilator Start: 03-28-2018 End: 08-14-2022 Nitroglycerin 0.4 mg tablet, sublingual Active 0.4 mg SL Q5M as needed for Cardiac/Chest Pain 90 August 14, 2022 12:50pm Start: 03-28-2018 End: 08-14-2022 nitroglycerin 0.4 mg subling ual tablet 0.4 mg Dose = 1 tab(s), Sublingual, q5min, PRN as needed for chest pain, # 100 tab(s), 0 Refill(s) Start Date: 03/25/19 Status: Ordered Quantity: 100.0 Unit: tab(s) Repeat number: 1 omeprazole 40 mg delayed release oral capsule (7 sources) Proton Pump Inhibitor Start: 01-15-2018 End: 04-28-2025 omeprazole 40 mg oral delayed release capsule Dose : 40 mg = 1 cap(s), Oral, qDay, X 100 day(s), # 100 cap(s), 3 Refill(s), 04/28/25 8:50:00 PM EDT, Pharmacy: [facility], 158.5, cm, 03/03/24 10:06:00 EDT, Height, kg, 03/03/24 10:06:00 EDT, Dosing Weight Start Date: 03/24/24 Stop Date: 04/28/25 Status: Ordered Quantity: 100.0 Unit: cap(s) Repeat number: 4 Leith Low Dose Aspirin (3 sources) Start: 08-06-2019 take 1 mg by mouth once daily Leith Low Dose Aspirin mg =, Oral, qDay, 0 Refill(s) Start Date: 08/06/19 Status: Ordered traMADol hydrochloride 50 mg oral tablet (8 sources) Opioid Agonist Start: 01-12-2025 End: 03-13-2025 traMADol 50 mg oral tablet Dose : 50 mg = 1 tab(s), Oral, q8h, PRN as needed for pain, # 75 tab(s), 1 Refill(s), Pharmacy: [facility], Multiple joint pain, 158, cm, 12/22/24 11:39:00 EDT, Height, 77.3, kg, 12/22/24 11:39:00 EDT, Dosing Weight Start Date: 01/12/25 Stop Date: 03/13/25 Status: Ordered Quantity: 75.0 Unit: tab(s) Repeat number: 2 Indications: Pain in unspecified joint; Start: 12-31-2023 End: 02-29-2024 traMADol 50 mg oral tablet D ose : 50 mg = 1 tab(s), Oral, q8h, PRN as needed for pain, # 75 tab(s), 1 Refill(s), Pharmacy: [facility], Multiple joint pain, 158.5, cm, 12/31/23 15:02:00 EDT, Height, 76.5, kg, 12/31/23 15:02:00 EDT, Dosing Weight Start Date: 12/31/23 Stop Date: 02/29/24 Status: Ordered Start: 12-13-2022 End: 02-11-2023 traMADol 50 mg oral tablet D ose : 50 mg = 1 tab(s), Oral, q8h, PRN PRN as needed for pain, # 75 tab(s), 1 Refill(s), Pharmacy: [facility], Multiple joint pain, 158, cm, 09/27/22 13:59:00 EST, Height, 77.9, kg, 09/27/22 13:59:00 EST, Dosing Weight Start Date: 12/13/22 Stop Date: 02/11/23 Status: Ordered Start: 02-22-2022 End: 05-23-2022 traMADol 50 mg oral tablet D ose : 50 mg = 1 tab(s), Oral, q8h, PRN as needed for pain, # 75 tab(s), 2 Refill(s), Pharmacy: [facility], Multiple joint pain, 158, cm, 02/22/22 14:43:00 EDT, Height, 77, kg, 02/22/22 14:43:00 EDT, Dosing Weight Start Date: 02/22/22 Stop Date: 05/23/22 Status: Ordered Start: 01-15-2018 End: 04-07-2025 take 2 tablets by mouth at bedtime Tramadol 50 mg tablet Active 100 mg PO AT BEDTIME April 07, 2025 11:05am Pain Start: 01-15-2018 take 100 mg by mouth every eight hours as needed Tramadol Active 100 MG PO EVERY 8 HOURS NEEDED January 15, 2018 12:00am Completed/Discontinued Medications Medication Drug Class(es) Dates Sig (Normalized) Sig (Original) aspirin 81 mg delayed release oral tablet (6 sources) Platelet Aggregation Inhibitor, Nonsteroidal Anti-inflammatory Drug Start: 01-15-2018 End: 02-25-2024 take 1 tablet by mouth once daily Aspirin 81 MG tablet Discontinued 81 mg PO DAILY@0800 30 0 March 28, 2018 12:00am April 25, 2018 11:51am ergocalciferol 1.25 mg oral capsule (3 sources) Provitamin D2 Compound Start: 01-15-2018 End: 02-25-2024 Ergocalciferol (Vitamin D2) 50,000 UNIT capsule Discontinued 24762 U PO TU January 15, 2018 12:00am February 25, 2024 8:37am SUPPLEMENT ticagrelor 90 mg oral tablet (3 sources) Start: 03-28-2018 End: 04-25-2018 take 1 tablet by mouth twice daily Ticagrelor 90 MG tablet Discontinued 90 mg PO TWICE A DAY 60 0 March 28, 2018 12:00am April 25, 2018 12:29pm tiZANidine 4 mg oral tablet (2 sources) Central alpha-2 Adrenergic Agonist Start: 06-23-2021 End: 07-03-2021 tiZANidine 4 mg oral tablet Dose : 4 mg = 1 tab(s), Oral, q8h, # 30 tab(s), 0 Refill(s), Pharmacy: [facility], 160.7, cm, 06/23/21 13:13:00 EDT, Height, kg, 06/23/21 13:13:00 EDT, Dosing Weight Start Date: 06/23/21 Stop Date: 07/03/21 Status: Ordered Problems Problem Classification Problem Date Documented Date Episodic/Chronic Chronic kidney disease (2 sources) Chronic kidney disease stage 3B 12-31-2023 Chronic Chronic kidney disease (4 sources) Chronic kidney disease; Translations: [Chronic kidney disease, stage 3b] Onset: 01-03-2024 Coronary atherosclerosis and other heart disease (12 sources) Coronary arteriosclerosis in [place] artery; Translations: [Coronary atherosclerosis] Onset: 01-03-2024 11-05-2019 Chronic Comment on above: FFR guided SAHARA 92.5 X 20mm Promus Synergy) of proximal LAD 03/27/[address] Villagomez, [facility] Coronary atherosclerosis and other heart disease (5 sources) Stented coronary artery; Translations: [Presence of coronary angioplasty implant and graft] Onset: 03-03-2018 12-07-2018 Episodic Comment on above: FFR guided SAHARA 92.5 X 20mm Promus [employer]nergy) of proximal LAD 03/27/[address] Villagomez [facility] Diseases of mouth; excluding dental (1 source) Angular cheilitis 12-20-2022 Episodic Disorders of lipid metabolism (4 sources) Hyperlipidemia; Translations: [Hyperlipidemia, unspecified] 11-23-2020 Chronic E Codes: Fall (5 sources) Fall on same level from slipping, tripping or stumbling ; Translations: [Fall on same level from slipping, tripping and stumbling without subsequent striking against object, initial encounter] 12-08-2018 Episodic Esophageal disorders (7 sources) Gastroesophageal reflux disease; Translations: [Gastro-esophageal reflux disease without esophagitis] 07-17-2015 Chronic Essential hypertension (4 sources) Essential hypertension; Translations: [Essential (primary) hypertension] 11-23-2020 Chronic Fracture of upper limb (2 sources) Closed fracture of head of radius; Translations: [Displaced fracture of head of right radius, initial encounter for closed fracture] 01-09-2024 Episodic Headache; including migraine (4 sources) Migraine 07-17-2015 Chronic Multiple sclerosis (7 sources) Multiple sclerosis; Translations: [Multiple sclerosis] 07-17-2015 Chronic Nonspecific chest pain (3 sources) Chest pain; Translations: [Chest pain, unspecified] 12-07-2018 Episodic Nutritional deficiencies (9 sources) Vitamin D deficiency; Translations: [Vitamin D deficiency, unspecified] Onset: 01-03-2024 02-04-2020 Chronic Nutritional deficiencies (9 sources) Folic acid deficiency; Translations: [Vitamin B deficiency] Onset: 01-03-2024 11-05-2019 Episodic Open wounds of extremities (3 sources) Tear of skin; Translations: [Laceration without foreign body of right forearm, initial encounter] 12-08-2018 Episodic Open wounds of head; neck; and trunk (3 sources) Facial laceration ; Translations: [Laceration without foreign body of other part of head, initial encounter] 12-08-2018 Episodic Other aftercare (2 sources) 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; Translations: [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] Onset: 01-03-2024 Episodic Other connective tissue disease (2 sources) Foot pain 06-27-2023 Episodic Other hereditary and degenerative nervous system conditions (4 sources) Restless legs 11-05-2019 Chronic Other non-traumatic joint disorders (4 sources) Multiple joint pain 08-06-2019 Episodic Other nutritional; endocrine; and metabolic disorders (3 sources) Obese class I 12-20-2022 Chronic Other skin disorders (4 sources) Maybeury - lesion 05-16-2021 Episodic Residual codes; unclassified (3 sources) Tetanus diphtheria and acellular pertussis vaccination declined; Translations: [Immunization not carried out because of patient refusal] 12-08-2018 Episodic Superficial injury; contusion (9 sources) Contusion of thigh; Translations: [Contusion of unspecified thigh, initial encounter] 12-08-2018 Episodic Thyroid disorders (12 sources) Hypothyroidism; Translations: [Hypothyroidism, unspecified] Onset: 01-03-2024 08-06-2019 Chronic Unclassified (4 sources) Patient encounter status 11-05-2019 Unclassified (4 sources) Prescribed medication regimen behavior finding 11-28-2019 Results Test Name Value Interpretation Reference Range Facility Cardiology Visit Reporton Cardiology Visit Report [facility] [place] [id number] [facility] [place], [place] [address] OFFICE VISIT Date of Service: 04/07/25 MR#: [id number] Acct: [id number] Name: NANDO RUST Rep #: [id number] : 1950 Provider: Dr. Chan Seay MD Age/Sex: 74/F Location: [facility] [place] Status: Signed HPI HPI History of Present Illness Details: This is a 74-year-old white female who presents today for an outpatient cardiovascular follow-up visit. She has a history of CAD, LAD PCI (2018), hyperlipidemia, and hypertension. She has had some chest discomfort sometimes tight sometimes brief comes and goes but her major problem at this time is that she lost her and then also her brother. She has been under a tremendous amount of stress. She expresses concerns that this may be cardiac in nature. She denies palpitations. She acknowledges bilateral lower extremity edema that improves overnight. She denies claudication, shortness of breath activity, shortness of breath at rest, orthopnea, cough, or PND. She denies lightheadedness, dizziness, near-syncope, or syncope. She acknowledges fatigue. Intake Vital Signs 02/25/24 08:32 04/07/25 10:58 Height 5 ft 4 in 5 ft 4 in Weight: 169 lb BMI 29.0 BP 122/72 H Blood Pressure Location Lt brachial Position Sitting Respiration 16 Pulse 52 L Pulse Source Monitor Intake Visit Reasons: 1 Y FU Business Management Specialist Required: No Accompanied by: Self Is patient in pain?: No Allergies lorazepam (From Ativan) Adverse Reaction (Severe, Verified 04/07/25 11:04) Hallucinations Medications ???Medication ???Instructions ???Recorded ???Confirmed ???Type omeprazole 40 mg capsule,delayed 40 mg PO DAILY ACID REFLUX 8 04/07/25 History release levothyroxine 50 mcg tablet 50 mcg PO DAILY THYROID 05/16/19 0 04/07/25 History levothyroxine 25 mcg tablet 75 mcg PO .COMPLEX 03/30/20 History nitroglycerin 0.4 mg sublingual 0.4 mg sublingual Q5M PRN 08/14/22 04/07/25 Rx tablet Cardiac/Chest Pain #90 tabs cholecalciferol (vitamin D3) 1,250 1,250 mcg PO Q2W 02/25/24 History mcg (50,000 unit) capsule folic acid 1 mg tablet 1 mg PO Q OTHER DAY 02/25/2404/07 History atorvastatin 40 mg tablet 40 mg PO QHS #90 TABLETS 07/07/24 04/07/25 Rx lisinopril 10 mg tablet See Rx Instructions .Route 4 04/07/25 Rx .COMPLEX #180 tabs clopidogrel 75 mg tablet 75 mg PO DAILY #90 TABLETS 5 04/07/25 Rx metoprolol tartrate 25 mg tablet 25 mg PO BID #180 tabs 04/07/25 Rx tramadol 50 mg tablet 100 mg PO QHS Pain 04/07/25 History Have you fallen in the past year?: Yes [facility] Medical History Essential hypertension HLD (hyperlipidemia) Atherosclerotic heart disease of [place] coronary artery without angina pectoris GERD (gastroesophageal reflux disease) Chest pain Multiple sclerosis Hypothyroidism Surgical History History of elbow surgery Postsurgical percutaneous transluminal coronary angioplasty (PTCA) status ( 03/27/18) Presence of stent in coronary artery ( 03/27/18) Family History Mother Cancer Leukemia Father Cancer CAD (coronary artery disease) History of coronary artery bypass surgery Social History Smoking Status: Never smoker alcohol intake: never substance use type: does not use caffeine: Yes Type: carbonated beverages Number of servings: 2 ROS Const Const: Positive for fatigue and difficulty sleeping (difficulty falling asleep serene. since ); Negative for weakness, headache(s) or daytime sleepiness ENT ENT: Negative for headache(s), dizziness or Nosebleed/epistaxi s Cardio Chest Pain: Yes Frequency: other (comes and goes) Character: tightness Location: left chest Duration: brief Palpitations: Yes feels like its: fast Edema: Bilateral (BLE) Resp Respiratory: Negative for SOB with activity, SOB at rest, SOB orthopnea SOB lying down or Cough GI GI: Negative nausea, vomiting or heartburn Neuro Neuro: Negative for dizziness, lightheadedness, near syncope, headache(s) or weakness Endo Endo: Positive for fatigue Cardiology Exam Const Appearance: cooperative, healthy appearing, comfortable and no acute distress Nutritional Appearance: well nourished and overweight Orientation: alert, awake and oriented x3 Head Head: normal to inspection Ears: hearing grossly normal bilaterally Nose: external nose normal Face and Sinus: face symmetric Mouth: moist mucous membranes Eyes General: appearance normal, both eyes and all related structures Eyelids: (more content not included)... Normal [facility] .GFRon 01-08-2025 Estimated Glomerular Filtration Rate 51 ml/min/1.73sqm Normal [facility] Comment on above: Result Comment: Stages of Chronic Kidney Disease (CKD) Stage Description eGFR(ml/min/1.73 sq.m.) CKD 1 Normal kidney function or >=90 normal kindney function with possible kidney damage (ex. Proteinuria) CKD 2 Kidney damage with mild loss 60-89 of kidney function CKD 3a Mild to moderate loss of kidney 45-59 function CKD 3b Moderate to severe loss of 30-44 of kindey function CKD 4 Severe loss of kidney function 15-29 CKD 5 Kidney failure <15 Note: (go live 2024) the eGFR calculation was updated to the 2020 CKD-EPI creatinine equation without a race factor to calculate the eGFR results. Performed By: #### B MP, GFR, TSH, VIDH #### [place] [address] #### FOL #### [address] [address] [facility] 01-08-2025 BUN/Creatinine Ratio 12 ratio Normal 7-27 [facility] Comment on above: Performed By: #### B MP, GFR, TSH, VIDH #### [place] [address] #### FOL #### [address] [address] Calcium [Mass/Vol] 9.1 mg/dL Normal 8.4-10.2 [facility] Comment on above: Performed By: #### B MP, GFR, TSH, VIDH #### [place] [address] #### FOL #### [address] [address] Chloride [Moles/Vol] 104 mmol/L Normal 98-107 [facility] Comment on above: Performed By: #### B MP, GFR, TSH, VIDH #### [place] [address] #### FOL #### [address] [address] CO2 [Moles/Vol] 27 mmol/L Normal 23-31 [facility] Comment on above: Performed By: #### B MP, GFR, TSH, VIDH #### [place] [address] #### FOL #### [address] [address] Creatinine [Mass/Vol] 1.12 mg/dL High 0.51-0.95 [facility] Comment on above: Performed By: #### B MP, GFR, TSH, VIDH #### [address] [address] #### FOL #### [address] [address] Electrolyte Balance 6.0 mEq/L Normal 4.0-15.0 [facility] Comment on above: Performed By: #### B MP, GFR, TSH, VIDH #### [address] [address] #### FOL #### [address] [address] Glucose [Mass/Vol] 99 mg/dL Normal 83-110 [facility] Comment on above: Performed By: #### B MP, GFR, TSH, VIDH #### [address] [address] #### FOL #### [address] [address] Potassium [Moles/Vol] 4.2 mmol/L Normal 3.5-5.1 [facility] Comment on above: Performed By: #### B MP, GFR, TSH, VIDH #### [address] [address] #### FOL #### [address] [address] Sodium [Moles/Vol] 137 mmol/L Normal 136-145 [facility] Comment on above: Performed By: #### B MP, GFR, TSH, VIDH #### [address] [address] #### FOL #### [address] [address] Urea nitrogen [Mass/Vol] 13 mg/dL Normal 7-18 [facility] Comment on above: Performed By: #### B MP, GFR, TSH, VIDH #### [place] [address] [place], [place] [address] #### FOL #### [address] [address] FOLon 01-08-2025 Folate 21.36 ng/mL Normal 5.38-24.00 [facility] Comment on above: Performed By: #### B MP, GFR, TSH, VIDH #### [place] [address] [place], [place] [address] #### FOL #### [address] [address] LABORATORYOrdered By: SYSTEM SYSTEM on 01-08-2025 25-hydroxyvitamin D3 [Mass/Vol] 130.9 ng/mL Invalid Interpretation Code AO ADM SS Comment on above: Interpretive Data: I nterpretive Values Based on Total 25(OH) Vitamin D: Deficient <20 ng/mL Insufficient 20 - <30 ng/mL Sufficient 30-100 ng/mL Calcium [Mass/Vol] 9.1 mg/dL Normal 8.4 - 10. 2 mg/dL AO ADM SS Chloride [Moles/Vol] 104 mmol/L Normal 98 - 10 7 mmol/L AO ADM SS CO2 [Moles/Vol] 27 mmol/L Normal 23 - 31 mmol/L AO ADM SS Creatinine [Mass/Vol] 1.12 mg/dL High 0.51 - 0.95 mg/dL AO ADM SS Electrolyte Balance 6.0 mEq/L Normal 4.0 - 15 .0 mEq/L AO ADM SS Estimated Glomerular Filtration Rate 51 ml/min/1.73sqm Invalid Interpretation Code AO Chemistry S Comment on above: Interpretive Data: Stages of Chronic Kidney Disease (CKD) Stage Description eGFR(ml/min/1.73 sq.m.) CKD 1 Normal kidney function or >=90 normal kindney function with possible kidney damage (ex. Proteinuria) CKD 2 Kidney damage with mild loss 60-89 of kidney function CKD 3a Mild to moderate loss of kidney 45-59 function CKD 3b Moderate to severe loss of 30-44 of kindey function CKD 4 Severe loss of kidney function 15-29 CKD 5 Kidney failure <15 Note: (go live 2024) the eGFR calculation was updated to the 2020 CKD-EPI creatinine equation without a race factor to calculate the eGFR results. Folate [Mass/Vol] 21.36 ng/mL Normal 5.38 - 24. 00 ng/mL AH ADM SS Glucose [Mass/Vol] 99 mg/dL Normal 83 - 110 mg/dL AO ADM SS Potassium [Moles/Vol] 4.2 mmol/L Normal 3.5 - 5.1 mmol/L AO ADM SS Sodium [Moles/Vol] 137 mmol/L Normal 136 - 145 mmol/L AO ADM SS TSH Qn 2.80 m[IU]/L Normal 0.36 - 3.74 mcIU/mL AO ADM SS Urea nitrogen [Mass/Vol] 13 mg/dL Normal 7 - 18 mg/dL AO ADM SS Urea nitrogen/Creatinine [Mass ratio] 12 ratio Normal 7 - 27 ratio AO ADM SS TSHon 01-08-2025 TSH Qn 2.80 m[IU]/L Normal 0.36-3.74 [facility] Comment on above: Performed By: #### B MP, GFR, TSH, VIDH #### [address] [address] #### FOL #### [place] [address] VIDHon 01-08-2025 Vit. D 25-Hydroxy 130.9 ng/mL Normal [facility] Comment on above: Result Comment: Inte rpretive Values Based on Total 25(OH) Vitamin D: Deficient <20 ng/mL Insufficient 20 - <30 ng/mL Sufficient 30-100 ng/mL Performed By: #### B MP, GFR, TSH, VIDH #### [address] [address] #### FOL #### [place] [id number] .GFRon 01-03-2024 GFR Non- 40 ml/min/1.73sqm Normal [facility] ([place]) Comment on above: Result Comment: GFR Population mean for , Non- Americans Ages 20-29 = 116 mL/min/1.73 sq.m. Ages 30-39 = 107 mL/min/1.73 sq.m. Ages 40-49 = 99 mL/min/1.73 sq.m. Ages 50-59 = 93 mL/min/1.73 sq.m. Ages 60-69 = 85 mL/min/1.73 sq.m. Ages 70+ = 75 mL/min/1.73 sq.m. Chronic Kidney Disease: Less than 60 mL/min/1.73 square meters End Stage Renal Disease: Less than 15 mL/min/1.73 square meters Performed By: #### L IPID, TSH, VIDH, CMP, GFR #### [address] [address] #### FOL #### [address] [address] GFR 49 ml/min/1.73sqm Normal [facility] ([place]) Comment on above: Result Comment: GFR Population mean for , Non- Americans Ages 20-29 = 116 mL/min/1.73 sq.m. Ages 30-39 = 107 mL/min/1.73 sq.m. Ages 40-49 = 99 mL/min/1.73 sq.m. Ages 50-59 = 93 mL/min/1.73 sq.m. Ages 60-69 = 85 mL/min/1.73 sq.m. Ages 70+ = 75 mL/min/1.73 sq.m. Chronic Kidney Disease: Less than 60 mL/min/1.73 square meters End Stage Renal Disease: Less than 15 mL/min/1.73 square meters Performed By: #### L IPID, TSH, VIDH, CMP, GFR #### [address] [address] #### FOL #### [address] [address] CMPon 01-03-2024 Albumin Level 3.4 G/dL Normal 3.4-4.8 [facility] ([place]) Comment on above: Performed By: #### L IPID, TSH, VIDH, CMP, GFR #### [address] [address] #### FOL #### [address] [address] Albumin/Globulin [Mass ratio] 0.9 {ratio} Low 1.1-2.5 [facility] ([place]) Comment on above: Performed By: #### L IPID, TSH, VIDH, CMP, GFR #### [place] [address] #### FOL #### [address] [address] ALP [Catalytic activity/Vol] 49 U/L Normal 40-135 [facility] ([place]) Comment on above: Performed By: #### L IPID, TSH, VIDH, CMP, GFR #### [place] [address] #### FOL #### [place] [address] ALT [Catalytic activity/Vol] 22 U/L Normal 14-59 [facility] ([place]) Comment on above: Performed By: #### L IPID, TSH, VIDH, CMP, GFR #### [place] [address] #### FOL #### [place] [address] AST [Catalytic activity/Vol] 13 U/L Normal 10-40 [facility] ([place]) Comment on above: Performed By: #### L IPID, TSH, VIDH, CMP, GFR #### [place] [address] #### FOL #### [place] [address] Bili Total 0.5 mg/dL Normal 0.2-1.0 [facility] ([place]) Comment on above: Result Comment: Use of this assay is not recommended for patients undergoing treatment with eltrombopag due to the potential for falsely elevated results. Performed By: #### L IPID, TSH, VIDH, CMP, GFR #### [place] [address] #### FOL #### [place] [address] BUN/Creatinine Ratio 16 ratio Normal 7-27 [facility] ([place]) Comment on above: Performed By: #### L IPID, TSH, VIDH, CMP, GFR #### [address] [address] #### FOL #### [address] [address] Calcium [Mass/Vol] 9.3 mg/dL Normal 8.4-10.2 [facility] ([place]) Comment on above: Performed By: #### L IPID, TSH, VIDH, CMP, GFR #### [address] [address] #### FOL #### [address] [address] Chloride [Moles/Vol] 105 mmol/L Normal 98-107 [facility] ([place]) Comment on above: Performed By: #### L IPID, TSH, VIDH, CMP, GFR #### [address] [address] #### FOL #### [address] [address] CO2 [Moles/Vol] 25 mmol/L Normal 23-31 [facility] ([place]) Comment on above: Performed By: #### L IPID, TSH, VIDH, CMP, GFR #### [address] [address] #### FOL #### [address] [address] Creatinine [Mass/Vol] 1.29 mg/dL High 0.55-1.02 [facility] ([place]) Comment on above: Performed By: #### L IPID, TSH, VIDH, CMP, GFR #### [address] [address] #### FOL #### [address] [address] Electrolyte Balance 11.0 mEq/L Normal 4.0-15.0 [facility] ([place]) Comment on above: Performed By: #### L IPID, TSH, VIDH, CMP, GFR #### [address] [address] #### FOL #### [address] [address] Globulin 3.6 G/dL Normal [facility] ([place]) Comment on above: Performed By: #### L IPID, TSH, VIDH, CMP, GFR #### [address] [address] #### FOL #### [address] [address] Glucose [Mass/Vol] 92 mg/dL Normal 83-110 [facility] ([place]) Comment on above: Performed By: #### L IPID, TSH, VIDH, CMP, GFR #### [address] [address] #### FOL #### [address] [address] Potassium [Moles/Vol] 4.4 mmol/L Normal 3.5-5.1 [facility] ([place]) Comment on above: Performed By: #### L IPID, TSH, VIDH, CMP, GFR #### [address] [address] #### FOL #### [address] [address] Sodium [Moles/Vol] 141 mmol/L Normal 136-145 [facility] ([place]) Comment on above: Performed By: #### L IPID, TSH, VIDH, CMP, GFR #### [address] [address] #### FOL #### [address] [address] Total Protein 7.0 G/dL Normal 6.4-8.2 [facility] ([place]) Comment on above: Performed By: #### L IPID, TSH, VIDH, CMP, GFR #### [address] [address] #### FOL #### [place] [address] Urea nitrogen [Mass/Vol] 20 mg/dL High 7-18 [facility] ([place]) Comment on above: Performed By: #### L IPID, TSH, VIDH, CMP, GFR #### [address] [address] #### FOL #### [place] [address] FOLon 01-03-2024 Folate 35.82 ng/mL High 5.38-24.00 [facility] ([place]) Comment on above: Performed By: #### L IPID, TSH, VIDH, CMP, GFR #### [address] [address] #### FOL #### [place] [address] LABORATORYOrdered By: SYSTEM SYSTEM on 01-03-2024 25-hydroxyvitamin D3 [Mass/Vol] 141.2 ng/mL Invalid Interpretation Code AO ADM SS Comment on above: Interpretive Data: I nterpretive Values Based on Total 25(OH) Vitamin D: Deficient <20 ng/mL Insufficient 20 - <30 ng/mL Sufficient 30-100 ng/mL Albumin BCP dye [Mass/Vol] 3.4 G/dL Normal 3.4 - 4.8 G/dL AO ADM SS Albumin/Globulin [Mass ratio] 0.9 {ratio} Low 1.1 - 2.5 ratio AO ADM SS ALP [Catalytic activity/Vol] 49 U/L Normal 40 - 135 U/L AO ADM SS ALT With P-5'-P [Catalytic activity/Vol] 22 U/L Normal 14 - 59 U/L AO ADM SS AST With P-5'-P [Catalytic activity/Vol] 13 U/L Normal 10 - 40 U/L AO ADM SS Bilirubin [Mass/Vol] 0.5 mg/dL Normal 0.2 - 1 .0 mg/dL AO ADM SS Comment on above: Interpretive Data: U se of this assay is not recommended for patients undergoing treatment with eltrombopag due to the potential for falsely elevated results. Calcium [Mass/Vol] 9.3 mg/dL Normal 8.4 - 10. 2 mg/dL AO ADM SS Chloride [Moles/Vol] 105 mmol/L Normal 98 - 10 7 mmol/L AO ADM SS CO2 [Moles/Vol] 25 mmol/L Normal 23 - 31 mmol/L AO ADM SS Creatinine [Mass/Vol] 1.29 mg/dL High 0.55 - 1.02 mg/dL AO ADM SS Electrolyte Balance 11.0 mEq/L Normal 4.0 - 15 .0 mEq/L AO ADM SS Folate [Mass/Vol] 35.82 ng/mL High 5.38 - 24. 00 ng/mL AH ADM SS GFR/1.73 sq M.predicted among blacks MDRD (S/P/Bld) [Vol rate/Area] 49 ml/min/1.73sqm Invalid Interpretation Code AO Chemistry S Comment on above: Interpretive Data: GFR Population mean for , Non- Americans Ages 20-29 = 116 mL/min/1.73 sq.m. Ages 30-39 = 107 mL/min/1.73 sq.m. Ages 40-49 = 99 mL/min/1.73 sq.m. Ages 50-59 = 93 mL/min/1.73 sq.m. Ages 60-69 = 85 mL/min/1.73 sq.m. Ages 70+ = 75 mL/min/1.73 sq.m. Chronic Kidney Disease: Less than 60 mL/min/1.73 square meters End Stage Renal Disease: Less than 15 mL/min/1.73 square meters GFR/1.73 sq M.predicted among non-blacks MDRD (S/P/Bld) [Vol rate/Area] 40 ml/min/1.73sqm Invalid Interpretation Code AO Chemistry S Comment on above: Interpretive Data: GFR Population mean for , Non- Americans Ages 20-29 = 116 mL/min/1.73 sq.m. Ages 30-39 = 107 mL/min/1.73 sq.m. Ages 40-49 = 99 mL/min/1.73 sq.m. Ages 50-59 = 93 mL/min/1.73 sq.m. Ages 60-69 = 85 mL/min/1.73 sq.m. Ages 70+ = 75 mL/min/1.73 sq.m. Chronic Kidney Disease: Less than 60 mL/min/1.73 square meters End Stage Renal Disease: Less than 15 mL/min/1.73 square meters Globulin 3.6 G/dL Invalid Interpretation Code AO ADM SS Glucose [Mass/Vol] 92 mg/dL Normal 83 - 110 mg/dL AO ADM SS Potassium [Moles/Vol] 4.4 mmol/L Normal 3.5 - 5.1 mmol/L AO ADM SS Protein [Mass/Vol] 7.0 G/dL Normal 6.4 - 8.2 G/dL AO ADM SS Sodium [Moles/Vol] 141 mmol/L Normal 136 - 145 mmol/L AO ADM SS TSH Qn 3.34 m[IU]/L Normal 0.36 - 3.74 mcIU/mL AO ADM SS Urea nitrogen [Mass/Vol] 20 mg/dL High 7 - 18 mg/dL AO ADM SS Urea nitrogen/Creatinine [Mass ratio] 16 ratio Normal 7 - 27 ratio AO ADM SS LABORATORYOrdered By: Meri Milton on 01-03-2024 Albumin DL <= 20 mg/L (U) [Mass/Vol] 1175 mcg/dL Invalid Interpretation Code AO ADM SS Albumin/Creatinine DL <= 20 mg/L (U) [Mass ratio] 7 mcg/mg Normal 0 - 30 mcg/mg AO ADM SS Amphetamines Screen Ql (U) Negative *NA* (01/03/24 9:43 AM) Invalid Interpretation Code AO ADM SS Barbiturates Screen Ql (U) Negative *NA* (01/03/24 9:43 AM) Invalid Interpretation Code AO ADM SS Benzodiazepines Ql (U) Negative *NA* (01/03/24 9:43 AM) Invalid Interpretation Code AO ADM SS Benzoylecgonine Screen Ql (U) Negative *NA* (01/03/24 9:43 AM) Invalid Interpretation Code AO ADM SS Cannabinoids Screen Ql (U) Negative *NA* (01/03/24 9:43 AM) Invalid Interpretation Code AO ADM SS Cholesterol [Mass/Vol] 153 mg/dL Normal 0 - 200 mg/dL AO ADM SS Comment on above: Interpretive Data: C holesterol Reference Interval: Less than 200 Desirable 200-239 Borderline high risk 240 and above High risk Cholesterol in HDL [Mass/Vol] 53 mg/dL Normal 40 - 60 mg/dL AO ADM SS Cholesterol in LDL [Mass/Vol] 76 mg/dL Normal 0 - 130 mg/dL AO ADM SS Creatinine (U) [Mass/Vol] 164.0 mg/dL High 28.0 - 117.0 mg/dL AO ADM SS Methadone Screen Ql (U) Negative *NA* (01/03/24 9:43 AM) Invalid Interpretation Code AO ADM SS Opiates Screen Ql (U) Negative *NA* (01/03/24 9:43 AM) Invalid Interpretation Code AO ADM SS Phencyclidine Ql (U) Negative *NA* (01/03/24 9:43 AM) Invalid Interpretation Code AO ADM SS Triglyceride [Mass/Vol] 121 mg/dL Normal 0 - 150 mg/dL AO ADM SS Comment on above: Interpretive Data: T riglyceride Reference Interval: Less than 150 Normal 150-199 Borderline high risk 200-499 High risk 500 or higher Very high risk Urine Drugs screened: See Below 5 (01/03/24 9:43 AM) Normal AO Chemistry S Comment on above: Interpretive Data: T his drug screen is a presumptive screening only. No confirmation will be performed unless requested. Drugs screened include: Threshold Amphetamines/Methamphetamines 1,000 ng/mL Barbiturates 200 ng/mL Benzodiazepine metabolites 200 ng/mL Cannabinoids (THC metabolites) 50 ng/mL Cocaine 300 ng/mL Opiates 300 ng/mL Methadone 300 ng/mL Phencyclidine (PCP) 25 ng/mL Testing has been performed FOR MEDICAL PURPOSES ONLY. LIPIDon 01-03-2024 Cholesterol [Mass/Vol] 153 mg/dL Normal 0-200 [facility] ([place]) Comment on above: Result Comment: Chol esterol Reference Interval: Less than 200 Desirable 200-239 Borderline high risk 240 and above High risk Performed By: #### L IPID, TSH, VIDH, CMP, GFR #### [address] [address] #### FOL #### [address] [address] Cholesterol in HDL [Mass/Vol] 53 mg/dL Normal 40-60 [facility] ([place]) Comment on above: Performed By: #### L IPID, TSH, VIDH, CMP, GFR #### [address] [address] #### FOL #### [address] [address] Cholesterol in LDL [Mass/Vol] 76 mg/dL Normal 0-130 [facility] ([place]) Comment on above: Performed By: #### L IPID, TSH, VIDH, CMP, GFR #### [address] [address] #### FOL #### [facility] [address] [place] [address] Triglyceride [Mass/Vol] 121 mg/dL Normal 0-150 [facility] ([place]) Comment on above: Result Comment: Trig lyceride Reference Interval: Less than 150 Normal 150-199 Borderline high risk 200-499 High risk 500 or higher Very high risk Performed By: #### L IPID, TSH, VIDH, CMP, GFR #### [address] [address] #### FOL #### [address] [address] MALBRon 01-03-2024 U Creatinine 164.0 mg/dL High 28.0-117.0 [facility] ([place]) Comment on above: Performed By: #### M ALBR, UDRUG #### [address] [address] U Microalb 1175 mcg/dL Normal [facility] ([place]) Comment on above: Performed By: #### M ALBR, UDRUG #### [address] [address] U Ratio Alb/Cre 7 mcg/mg Normal 0-30 [facility] ([place]) Comment on above: Performed By: #### M ALBR, UDRUG #### [address] [address] TSHon 01-03-2024 TSH Qn 3.34 m[IU]/L Normal 0.36-3.74 [facility] ([place]) Comment on above: Performed By: #### L IPID, TSH, VIDH, CMP, GFR #### [address] [address] #### FOL #### [place] [address] [place] [address] UDRUGon 01-03-2024 Amphetamine (u) Negative Normal Negative [facility] ([place]) Comment on above: Performed By: #### M ALBR, UDRUG #### Matt [address] [address] Barbiturate (u) Negative Normal Negative [facility] ([place]) Comment on above: Performed By: #### M ALBR, UDRUG #### Matt [address] [address] Benzodiazepine (u) Negative Normal Negative [facility] ([place]) Comment on above: Performed By: #### M ALBR, UDRUG #### Matt [address] [address] Cannabinoid (u) Negative Normal Negative [facility] ([place]) Comment on above: Performed By: #### M ALBR, UDRUG #### Matt [address] [address] Cocaine Ql (U) Negative Normal Negative [facility] ([place]) Comment on above: Performed By: #### M ALBR, UDRUG #### Matt [address] [address] Methadone Ql (U) Negative Normal Negative [facility] ([place]) Comment on above: Performed By: #### M ALBR, UDRUG #### Matt [address] [address] Opiate (u) Negative Normal Negative [facility] ([place]) Comment on above: Performed By: #### M ALBR, UDRUG #### Matt [address] [address] PCP (u) Negative Normal Negative [facility] ([place]) Comment on above: Performed By: #### M ALBR, UDRUG #### Matt [address] [address] Urine Drugs screened: See Below Normal [facility] ([place]) Comment on above: Result Comment: This drug screen is a presumptive screening only. No confirmation will be performed unless requested. Drugs screened include: Threshold Amphetamines/Methamphetamines 1,000 ng/mL Barbiturates 200 ng/mL Benzodiazepine metabolites 200 ng/mL Cannabinoids (THC metabolites) 50 ng/mL Cocaine 300 ng/mL Opiates 300 ng/mL Methadone 300 ng/mL Phencyclidine (PCP) 25 ng/mL Testing has been performed FOR MEDICAL PURPOSES ONLY. Performed By: #### M ALBR, UDRUG #### [place] [id number] VIDHon 01-03-2024 Vit. D 25-Hydroxy 141.2 ng/mL Normal [facility] ([place]) Comment on above: Result Comment: Inte rpretive Values Based on Total 25(OH) Vitamin D: Deficient <20 ng/mL Insufficient 20 - <30 ng/mL Sufficient 30-100 ng/mL Performed By: #### L IPID, TSH, VIDH, CMP, GFR #### [place] [address] #### FOL #### [place] [address] LABORATORYOrdered By: SYSTEM SYSTEM on 01-01-2023 25-hydroxyvitamin D3 [Mass/Vol] 130.6 ng/mL Invalid Interpretation Code AO ADM SS Albumin BCP dye [Mass/Vol] 3.6 G/dL Invalid Interpretation Code 3.4 - 4.8 G/dL AO ADM SS Albumin/Globulin [Mass ratio] 1.0 {ratio} Invalid Interpretation Code 1.1 - 2.5 ratio AO ADM SS ALP [Catalytic activity/Vol] 54 U/L Invalid Interpretation Code 40 - 135 U/L AO ADM SS ALT With P-5'-P [Catalytic activity/Vol] 22 U/L Invalid Interpretation Code 14 - 59 U/L AO ADM SS AST With P-5'-P [Catalytic activity/Vol] 18 U/L Invalid Interpretation Code 10 - 40 U/L AO ADM SS Bilirubin [Mass/Vol] 0.4 mg/dL Invalid Interpretation Code 0.2 - 1.0 mg/dL AO ADM SS Calcium [Mass/Vol] 9.4 mg/dL Invalid Interpretation Code 8.4 - 10.2 mg/dL AO ADM SS Chloride [Moles/Vol] 102 mmol/L Invalid Interpretation Code 98 - 107 mmol/L AO ADM SS CO2 [Moles/Vol] 30 mmol/L Invalid Interpretation Code 23 - 31 mmol/L AO ADM SS Creatinine [Mass/Vol] 1.28 mg/dL Invalid Interpretation Code 0.55 - 1.02 mg/dL AO ADM SS Electrolyte Balance 6.0 mEq/L Invalid Interpretation Code 4.0 - 15.0 mEq/L AO ADM SS Folate [Mass/Vol] 7.96 ng/mL Invalid Interpretation Code 5.38 - 24.00 ng/mL AH ADM SS GFR/1.73 sq M.predicted among blacks MDRD (S/P/Bld) [Vol rate/Area] 49 ml/min/1.73sqm Invalid Interpretation Code AO Chemistry S GFR/1.73 sq M.predicted among non-blacks MDRD (S/P/Bld) [Vol rate/Area] 41 ml/min/1.73sqm Invalid Interpretation Code AO Chemistry S Globulin 3.6 G/dL Invalid Interpretation Code AO ADM SS Glucose [Mass/Vol] 86 mg/dL Invalid Interpretation Code 83 - 110 mg/dL AO ADM SS Potassium [Moles/Vol] 5.0 mmol/L Invalid Interpretation Code 3.5 - 5.1 mmol/L AO ADM SS Protein [Mass/Vol] 7.2 G/dL Invalid Interpretation Code 6.4 - 8.2 G/dL AO ADM SS Sodium [Moles/Vol] 138 mmol/L Invalid Interpretation Code 136 - 145 mmol/L AO ADM SS TSH Qn 2.37 m[IU]/L Invalid Interpretation Code 0.36 - 3.74 mcIU/mL AO ADM SS Urea nitrogen [Mass/Vol] 19 mg/dL Invalid Interpretation Code 7 - 18 mg/dL AO ADM SS Urea nitrogen/Creatinine [Mass ratio] 15 ratio Invalid Interpretation Code 7 - 27 ratio AO ADM SS LABORATORYOrdered By: Nick Waller on 01-01-2023 Cholesterol [Mass/Vol] 150 mg/dL Invalid Interpretation Code 0 - 200 mg/dL AO ADM SS Cholesterol in HDL [Mass/Vol] 52 mg/dL Invalid Interpretation Code 40 - 60 mg/dL AO ADM SS Cholesterol in LDL [Mass/Vol] 75 mg/dL Invalid Interpretation Code 0 - 130 mg/dL AO ADM SS Triglyceride [Mass/Vol] 115 mg/dL Invalid Interpretation Code 0 - 150 mg/dL AO ADM SS Basophil percentageOrdered B y: Dr. Modi on 09-06-2022 Bilirubin [Mass/Vol] 0.60 mg/dL 0.20-1.00 [facility] Comment on above: For patients on eltr ombopag therapy, use of Dimension Tea TBIL is not recommended. Cholesterol [Mass/Vol] 159 mg/dL <200 [facility] Comment on above: <200 mg/dL Desirable 200-240 mg/dL Borderline >240 mg/dL High Risk Protein [Mass/Vol] 7.4 g/dL 6.4-8.2 [facility] Triglyceride [Mass/Vol] 132 mg/dL <199 [facility] Comment on above: The drugs N-Acetylcy steine and Metamizole may falsely depress this assay.Serum Triglycerides Reference Interval Normal <150 mg/dL Borderline high 150 - 199 mg/dL High 200 - 499 mg/dL Very High > or = 500 mg/dL Direct bilirubinOrdered By: Dr. Modi on 09-06-2022 Bilirubin.direct [Mass/Vol] 0.15 mg/dL 0.00-0.30 [facility] Laboratory - Chemistry and C hemistry - challengeOrdered By: Dr. Modi on 09-06-2022 ALP [Catalytic activity/Vol] 42 U/L 45-117 [facility] ALT [Catalytic activity/Vol] 22 U/L 13-56 [facility] Globulin (S) [Mass/Vol] 4.1 g/dL 2.2-4.2 [facility] Serum or plasma albumin dayana urement (mass/volume)Ordered By: Dr. Modi on 09-06-2022 Albumin [Mass/Vol] 3.3 g/dL 3.2-5.0 [facility] Serum or plasma cholesterol in HDL measurement (mass/volume)Ordered By: Dr. Modi on 09-06-2022 Cholesterol in HDL [Mass/Vol] 53 mg/dL >40 [facility] Comment on above: The drugs N-Acetylcy steine and Metamizole may falsely depress this assay. Reference Range HDL <40 mg/dL Low HDL Cholesterol HDL >or= 60 mg/dL High HDL Cholesterol Serum or plasma cholesterol in VLDL measurement (mass/volume)Ordered By: Dr. Modi on 09-06-2022 Cholesterol in VLDL [Mass/Vol] 26 mg/dL 5-40 [facility] Serum or plasma low density lipoprotein (LDL) cholesterol measurement (mass/volume)Ordered By: Dr. Modi on 09-06-2022 Cholesterol in LDL [Mass/Vol] 80 mg/dL 0-130 [facility] Thin prep Papanicolaou smear with manual screeningOrdered By: Dr. Modi on 09-06-2022 Thin prep Papanicolaou smear with manual screening 13 U/L 15-37 [facility] Vital Signs Date Time Vital Sign Value Performing Clinician Faci lity 04-07-2025 10:58-0400 Body height 162.[address] Vince Greco DO Work Phone: [facility] 04-07-2025 10:58-0400 Body mass index (BMI) [Ratio] 29 kg/m2 Dr. Vince Greco DO Work Phone: [facility] 04-07-2025 10:58-0400 Body weight 76.[address] Vince Greco DO Work Phone: [facility] 04-07-2025 10:58-0400 Diastolic blood pressure 72 mm[Hg] Dr. Vince Greco DO Work Phone: [facility] 04-07-2025 10:58-0400 Heart rate 52 /min Dr. Vince Greco DO Work Phone: [facility] 04-07-2025 10:58-0400 Respiratory rate 16 /min Dr. Vince Greco DO Work Phone: [facility] 04-07-2025 10:58-0400 Systolic blood pressure 122 mm[Hg] Dr. Vince Greco DO Work Phone: [facility] 01-09-2024 20:34-0400 Body temperature 97.6 [degF] [facility] 01-09-2024 20:34-0400 Diastolic blood pressure 64 mm[Hg] [facility] 01-09-2024 20:34-0400 Heart rate 68 /min [facility] 01-09-2024 20:34-0400 Respiratory rate 15 /min [facility] 01-09-2024 20:34-0400 SaO2% (BldA) [Mass fraction] 100 % [facility] 01-09-2024 20:34-0400 Systolic blood pressure 135 mm[Hg] [facility] 01-09-2024 19:02-0400 Body height 162.56 cm [facility] 01-09-2024 19:02-0400 Body mass index (BMI) [Ratio] 29 kg/m2 [facility] 01-09-2024 19:02-0400 Body weight 76.88 kg [facility] 08-14-2022 11:33-0500 Body height 162.[address] Vince Gerco Work Phone: [facility] 08-14-2022 11:33-0500 Body mass index (BMI) [Ratio] 28.1 kg/m2 Dr. Vince Greco Work Phone: [facility] 08-14-2022 11:33-0500 Body weight 74.[address] Vince Greco Work Phone: [facility] 08-14-2022 11:33-0500 Diastolic blood pressure 69 mm[Hg] Dr. Vince Greco Work Phone: [facility] 08-14-2022 11:33-0500 Heart rate 55 /min Dr. Vince Greco Work Phone: [facility] 08-14-2022 11:33-0500 Respiratory rate 16 /min Dr. Vince Greco Work Phone: [facility] 08-14-2022 11:33-0500 Systolic blood pressure 100 mm[Hg] Dr. Vince Greco Work Phone: [facility] Encounters Encounter Date Encounter Type Care Provider Facility Start: 04-30-2025 jocelyne Seay Facility:[facility] System [facility] Start: 04-07-2025 End: 04-07-[address] Chan Seay MD -[facility] Work Phone: Start: 04-07-2025 End: 04-07-[address] Vince Greco DO Work Phone: -[facility] Start: 01-08-2025 End: 01-12-2025 ambulatory VINCE GRECO DO Facility:[facility] Start: 01-08-2025 End: 01-12-2025 Outreach Lab VINCE GRECO DO [facility] Start: 01-09-2024 End: 01-09-2024 Emergency department patient visit [facility] Work Phone: Start: 01-03-2024 End: 01-08-2024 ambulatory VINCE GRECO DO Facility: Start: 01-03-2024 End: 01-07-2024 Outreach Lab VINCE GRECO DO [facility] Start: 01-01-2023 End: 01-01-2023 Patient encounter procedure VINCE GRECO DO [facility] Start: 09-06-2022 End: 09-06-[address] Vince Greco Work Phone: [facility] Work Phone: Start: 09-06-2022 End: 09-06-[address] Vince Greco Work Phone: [facility]Laboratory Start: 08-14-2022 End: 08-14-[address] Vince Greco Work Phone: [facility] Start: 03-14-2022 End: 03-14-2022 Patient encounter procedure VINCE GRECO DO [facility] Procedures Date Procedure Procedure Detail Performing Clinician Start: 01-09-2024 Plain x-ray of elbow Start: 09-03-2023 Closed fracture of r ight upper limb (disorder) VINCE MALAVEY DO Start: 09-03-1993 Open fracture of upp er limb (disorder) VINCE CELISSAY DO Comment on above: surgical repair righ t arm fx None (qualifier value) ABDULLAHI Daniels KEVIN DO Plan of Treatment Date Care Activity Detail Author Start: 01-09-2024 [facility] Patient Education ED Radial Head Fracture [facility] Work Phone: Patient referral [facility] Work Phone: Immunizations Immunization Date Immunization Notes Care Provider Ishmael magana 09-22-2024 influenza, high dose seasonal, preservative-free; Translations: [Fluad PF Prefilled Syringe ] VINCE [facility]ELISSA[facility] DO [facility] 07-24-2023 influenza, high dose seasonal, preservative-free; Translations: [Fluad Quadrivalent PF ] VINCE CELISSAY DO [facility] 08-02-2022 influenza, high dose seasonal, preservative-free VINCE CELISSAY DO [facility] 08-15-2021 influenza, injectabl e, quadrivalent, contains preservative; Translations: [Fluarix PF Quadrivalent ] VINCE GRECO DO [facility] 06-09-2020 influenza, injectabl e, quadrivalent, preservative free; Translations: [Fluarix PF Quadrivalent ] VINCE CELISSAY DO [facility] 08-06-2019 influenza, injectabl e, quadrivalent, preservative free; Translations: [Fluarix PF Quadrivalent ] VINCE GRECO DO [facility] 06-20-2018 influenza virus vaccine, unspecified formulation VINCE CELISSAY DO [facility] 06-03-[address] Vince Greco Work Phone: [facility] 07-05-2016 influenza virus vaccine, unspecified formulation VINCE KEVIN DO [facility] 07-06-2015 influenza virus vaccine, unspecified formulation VINCE KVEIN DO [facility] 06-08-2014 influenza virus vaccine, unspecified formulation VINCE MALAVEY DO [facility] 07-28-2013 influenza virus vaccine, unspecified formulation VINCE KEVIN DO [facility] 07-01-2012 influenza virus vaccine, unspecified formulation VINCE MALAVEY DO [facility] Payers Date Payer Category Payer Self-pay [id number] 2025 Unknown [id number] 2025 Unknown [id number] 2024 Medicare [id number] 1950 Unknown [id number] 1950 Unknown [id number] Unknown [id number] Unknown [id number] Social History Date Type Detail Facility Start: 03-25-2019 End: 01-09-2024 Tobacco smoking status Never smoked tobacco (finding) [facility] Start: 1950 Sex Assigned At Female A [facility] Start: 08-14-2022 End: 01-09-2024 Tobacco smoking status NHIS Unknown if ever smoked [facility] Start: 03-26-2018 None [facility] Start: 12-07-2018 Spouse/ Signif icant Other [facility] Start: 01-17-2018 Non-smoker [facility] Sexual Orientation [facility] Start: 02-26-2019 Sex Female (finding) [facility] Evaluation note 03-03-2018 Note Date & Type Note Facility 03-03-2018 Evaluation note Diagnosis Onset Date Atherosclerotic heart diseas e of [place] coronary artery without angina pectoris chronic Essential hypertension chron ic HLD (hyperlipidemia) chronic 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 Evaluation + Plan note Note Date & Type Note Facility Evaluation + Plan note Future Appointments Appointment Date:03/21/2023 02:00:00 PM Scheduled Provider:VINCE GRECO DO Location:[facility] Appointment Type:PC OV Controlled Medication [facility] Evaluation + Plan note Note Date & Type Note Facility Evaluation + Plan note Future Appointments Appointment Date:03/31/2024 03:00:00 PM Scheduled Provider:VINCE GRECO DO Location:[facility] Appointment Type:PC OV Controlled Medication [facility] Evaluation + Plan note Note Date & Type Note Facility Evaluation + Plan note Future Appointments Appointment Date:03/23/2025 11:30:00 AM Scheduled Provider:KIESHA ARGUELLO Location:[facility] Appointment Type:PC OV Controlled Medication [facility] Evaluation note Note Date & Type Note Facility [facility]: Hospital course Narrative Note Date & Type Note Facility Hospital course Narrative No data available for this section [facility] Hospital Discharge instructions Note Date & Type Note Facility Hospital Discharge instructions No data available for this section [facility] Progress note Note Date & Type Note Facility Progress note No data available for this section [facility] Reason for referral (narrative) Note Date & Type Note Facility Reason for referral (narrative) No reason for referral information available [facility] Work Phone: Chief Complaint and Reason for Visit Chief Complaint 9 M FU E ORDER Reason for Visit Atherosclerotic hear t disease of [place] coronary artery without angina pectoris Essential hypertension HLD (hyperlipidemia) Presence of stent in coronary artery Chief Complaint UPPER Chief Complaint Admit Date 1 Y FU April 07, 2025 10: 52am Family History No Family History Records Found Relationship Condition Age at Onset Recorded Date/T vazquez mother Malignant neoplasm Unknown father Malignant neoplasm Unknown Coronary artery disease Unknown History of coronary artery bypass surgery Unknown Advance Directives No Advanced Directives Records Found Advance Directive Response Recorded Date/ Time Living Will No December 07, 2018 4:09am Power of Fermentation Manager No December 07 9 4:09am Advance Directive Response Recorded Date/ Time Living Will No January 09, 2024 7: 12pm Power of Fermentation Manager No January 09, 2024 7:12pm Advance Directive Response Recorded Date/ Time Living Will No January 09, 2024 7: 12pm Do you have a Healthcare Power of Fermentation Manager? No January 09, 2024 7:12pm Summary Purpose Additional Source Comments Care Team (unrecognized sect ion and content) Care Team Personnel Name: VINCE GRECO DO Position: P4 Physician - Primary Care Med Service: Active Provider Member Role: Primary Care Physician Address: Address: [address] [facility] [place] [address]- Care Team Related Persons Name: VERNA RUST Care Teams (unrecognized sec tion and content) Team Status: Active Member Role Status Dates Dr. Vince Greco DO Family Provider Active Dr. Vince Greco DO Primary Care Provider Active Team Status: Inactive Member Role Status Dates Dr. Vince Greco DO Primary Care Provider, Referri ng Provider Active Dr. Drew Modi MD Attending Provider Active Team Status: Inactive Member Role Status Dates Dr. Vince Greco DO Primary Care Provider Active Dr. Drew Modi MD Attending Provider Active Team Status: Inactive Member Role Status Dates Dr. Vince Greco DO Primary Care Provider Active Dr. David Baker DO Emergency Provider Active Team Status: Active Member Role/Relationship Status Dates Dr. Vince Greco DO Family Provider Active Dr. Vince Greco DO Primary Care Provider Active Team Status: Inactive Member Role/Relationship Status Dates Dr. Vince Greco DO Primary Care Provider Active Start: April 07, 2025 End: April 07, 2025 Dr. Vince Greco DO Referring Provider Active Start: April 07, 2025 End: April 07, 2025 Dr. Chan Seay MD Attending Provider Active S tart: April 07, 2025 End: April 07, 2025 Goals (unrecognized section and content) Goals may be documented in a n alternate section INFORMATION SOURCE (unrecogn ized section and content) DATE CREATED AUTHOR 01/09/2024 [facility] ([place]) DATE CREATED AUTHOR AUTHOR'S ORGANIZ ATION 01/13/2025 [facility] DATE CREATED AUTHOR AUTHOR'S ORGANIZ ATION 04/23/2025 [facility] FOR RECORDS PERTAINING TO PATIENTS WHO ARE OR HAVE BEEN ENROLLED IN A CHEMICAL DEPENDENCY/SUBSTANCEABUSE PROGRAM, SOME INFORMATION MAY BE OMITTED. This clinical summary was aggregated from multiple sources. Caution should be exercised in using it in the provision of clinical care. This summary normalizes information from multiple sources, and as a consequence, information in this document may materially change the coding, format and clinical context of patient data. In addition, data may be omitted in some cases. CLINICAL DECISIONS SHOULD BE BASED ON THE PRIMARY CLINICAL RECORDS. [employer] [facility]. provides no warranty or guarantee of the accuracy or completeness of information in this document.
--- NOTE | 2025-05-04 14:40 | STRESSREP ---
Stress Test Report Pharmacologic myocardial perfusion stress test. 75-year-old woman with a history of chest pain. Resting EKG demonstrates sinus bradycardia with a rate of 55 bpm. Resting blood pressure is 142/84 mmHg. 0.4 mg of regadenoson was infused per usual protocol followed by rapid intravenous saline flush injection. Continuous EKG monitoring was performed. The maximum heart rate was 93 bpm which was 65% of max impacted heart rate the maximum workload was 1 metabolic equivalent. At rest there were no ST or T wave changes noted to suggest ischemia and at peak infusion nonspecific ST changes were noted which did not meet the criteria for ischemia. No clinical angina is noted. The final blood pressure was 132/88 mmHg. Myocardial perfusion protocol. 12 mCi of technetium 99m sestamibi was injected at rest. 0.4 mg of regadenoson was infused per usual protocol. At peak infusion 36 mCi of technetium 99m sestamibi was injected stress images were obtained stress and rest images were reconstructed and compared in the short axis vertical long and horizontal long axis. Gated images were also obtained. Perfusion SPECT analysis: Review of the stress images demonstrate normal uptake of tracer noted in all areas of the myocardium. The resting images similar demonstrated normal uptake of tracer noted in all areas of the myocardium. No areas of reversibility are noted to suggest ischemia and no previous infarct is noted. Gated SPECT analysis: The gated ejection fraction is 62%. Conclusion: Normal pharmacologic myocardial perfusion stress test. [Preserved ] ejection fraction.
== END | disposition home or self-care (01) ==
PROVIDERS: PCP Nurse Practitioner Family; Referring Provider Internal Medicine Cardiovascular Disease; Visit Provider Internal Medicine Cardiovascular Disease
DX: I25.10 Atherosclerotic heart disease of native coronary artery without angina pectoris (principal); Z95.5 Presence of coronary angioplasty implant and graft
CPT/HCPCS: 78452; 93017; A9500; A4216; J2785